=== PATIENT | male | born 1965 | race Hispanic/Latino ===

== ENCOUNTER 2018-08-21 11:41 | Inpatient (IN) | payer MEDICARE, MEDICAID ==
[~2018-08-21] VITALS: Ht 160 cm; Wt 37.5 kg
[2018-08-21] MEDS: D5NS 1,000 ML IV SCH ×2 (12:46→18:06)
[2018-08-21 13:09] LABS: HEMOGLOBIN 14.8 G/DL (14.2-18.0); MEAN CORPUSCULAR VOLUME 89 FL (80-99); PLATELET COUNT 399 K/UL (150-450); RED BLOOD COUNT 4.62 M/UL (4.70-6.10); RED CELL DISTRIBUTION WIDTH 11.7 % (11.6-14.8)
[2018-08-21 13:10] LABS: WHITE BLOOD COUNT 22.6 K/UL (4.8-10.8)
[2018-08-21 13:25] LABS: ANION GAP 6 mmol/L (5-15); BLOOD UREA NITROGEN 18 mg/dL (7-18); CALCIUM 9.7 MG/DL (8.5-10.1); CARBON DIOXIDE 31 MMOL/L (21-32); CHLORIDE 99 MMOL/L (98-107); CREATININE 0.4 MG/DL (0.55-1.30); POTASSIUM 3.3 MMOL/L (3.5-5.1); SODIUM 136 MMOL/L (136-145)
[2018-08-21 13:29] LABS: ALANINE AMINOTRANSFERASE 29 U/L (12-78); ALBUMIN 3.8 G/DL (3.4-5.0); ALBUMIN/GLOBULIN RATIO 0.8 (1.0-2.7); ALKALINE PHOSPHATASE 101 U/L (46-116); ASPARTATE AMINO TRANSFERASE 32 U/L (15-37); BILIRUBIN,TOTAL 0.3 MG/DL (0.2-1.0)
[2018-08-21 13:30] LABS: APPEARANCE,URINE CLEAR; BILIRUBIN, URINE NEGATIVE (NEGATIVE); COLOR,URINE PALE YELLOW; GLUCOSE, URINE (UA) 4+ (NEGATIVE); KETONES,URINE NEGATIVE (NEGATIVE); LEUKOCYTE ESTERASE ,URINE NEGATIVE (NEGATIVE); NITRITE,URINE NEGATIVE (NEGATIVE); PH,URINE 7 (4.5-8.0); PROTEIN,URINE 3+ (NEGATIVE); UROBILINOGEN,URINE NORMAL MG/DL (0.0-1.0)
[2018-08-21 13:47] VITALS: BP 107/66
[2018-08-21] MEDS ORDERED: cefTRIAXone 1 GM in NS 55 ML IVPB ONE (14:00)
--- NOTE | 2018-08-21 14:19 | Emergency Room Report ---
History of Present Illness General Chief Complaint: Abnormal Labs Source: Patient, EMS Present Illness HPI 52-year-old male presents ED for evaluation. Brought in by EMS from home. Accu -Chek was low in the field. In the 20s. Given glucagon. Upon arrival patient more awake alert. Patient states he feels weak and cold. Son at bedside states that patient has history of diabetes. Does not know what medications he takes. Per EMS patient covered in bugs, appears dirty. Son states that the uncle takes care of the patient. Denies chest pain or shortness of breath. Denies fevers or chills. No other aggravating relieving factors. Denies any other associated symptoms Allergies: Coded Allergies: No Known Allergies (Verified , 01/17/08) Patient History Past Medical History: none, DM Past Surgical History: none Pertinent Family History: none Social History: Denies: smoking, alcohol use, drug use Immunizations: UTD Reviewed Nursing Documentation: PMH: Agreed; PSxH: Agreed Nursing Documentation-PMH Past Medical History: No History, Except For Hx Diabetes: Yes Review of Systems All Other Systems: negative except mentioned in HPI Physical Exam Vital Signs Date Time Temp Pulse Resp B/P (MAP) Pulse Ox O2 Delivery O2 Flow Rate FiO2 08/21/18 11:36 97.9 66 18 173/84 98 Room Air 97.9 Sp02 EP Interpretation: reviewed, normal General Appearance: no apparent distress, alert, GCS 15, non-toxic, cachetic Head: normocephalic, atraumatic Eyes: bilateral eye normal inspection, bilateral eye PERRL ENT: hearing grossly normal, normal pharynx, no angioedema, normal voice Neck: full range of motion, supple/symm/no masses Respiratory: chest non-tender, lungs clear, normal breath sounds, speaking full sentences Cardiovascular #1: regular rate, rhythm, no edema Cardiovascular #2: 2+ carotid (R), 2+ carotid (L), 2+ radial (R), 2+ radial (L) , 2+ dorsalis pedis (R), 2+ dorsalis pedis (L) Gastrointestinal: normal bowel sounds, non tender, soft, non-distended, no guarding, no rebound Rectal: deferred Genitourinary: normal inspection, no CVA tenderness Musculoskeletal: back normal, gait/station normal, normal range of motion, non- tender Neurologic: alert, oriented x3, responsive, motor strength/tone normal, sensory intact, speech normal Psychiatric: judgement/insight normal, memory normal, mood/affect normal, no suicidal/homicidal ideation Reflexes: 3+ bicep (R), 3+ bicep (L), 3+ tricep (R), 3+ tricep (L), 3+ knee (R) , 3+ knee (L) Skin: normal color, no rash, warm/dry, well hydrated Lymphatic: no adenopathy Medical Decision Making Diagnostic Impression: Primary Impression: Hypoglycemia Additional Impressions: Sepsis Qualified Codes: A41.9 - Sepsis, unspecified organism Failure to thrive Qualified Codes: R62.7 - Adult failure to thrive ER Course Hospital Course 52-year-old male presenting to ED with generalized weakness, low FS in field Differential diagnoses include: Pneumonia, UTI, sepsis, dehydration Clinical course Patient placed on stretcher. On teletypesetter monitor with stable vitals are ED course. After initial history and physical, I ordered labs, IV fluids, EKG, chest x-ray, blood cultures, UA. Labs - glucose 65, no leukocytosis, troponins negative, UA + bacteria, lactate 2 EKG - NSR, no acute ischemic changes interpreted by me CXR - no acute process Abx given. Given D50, started on D5 fluids. Patient appears to be taken care of poorly and will require social sciences instructor evaluation Case discussed with Dr Padgett and they agreed to admit patient to their service for further care and support I feel this is a highly complex case requiring extensive working including EKG/ Rhythm strip, Xray/CT/US, Blood/urine lab work, repeat exams while in ED, and administration of strong opiates/narcotics for pain control, admission to hospital or close patient follow up. Diagnosis - hypoglycemia, sepsis, FTT Patient admitted to floor in serious condition Labs Test 08/21/18 12:10 08/21/18 12:45 08/21/18 13:30 Urine Color Pale yellow Urine Appearance Clear Urine pH 7 (4.5-8.0) Urine Specific [place] 1.010 (1.005-1.035) Urine Protein 3+ (NEGATIVE) Urine Glucose (UA) 4+ (NEGATIVE) Urine Ketones Negative (NEGATIVE) Urine Blood 2+ (NEGATIVE) Urine Nitrite Negative (NEGATIVE) Urine Bilirubin Negative (NEGATIVE) Urine Urobilinogen Normal MG/DL (0.0-1.0) Urine Leukocyte Esterase Negative (NEGATIVE) Urine RBC 2-4 /HPF (0 - 0) Urine WBC 0-2 /HPF (0 - 0) Urine Squamous Epithelial Cells Occasional /LPF Urine Bacteria Occasional /HPF (NONE) White Blood Count 22.6 K/UL (4.8-10.8) Red Blood Count 4.62 M/UL (4.70-6.10) Hemoglobin 14.8 G/DL (14.2-18.0) Hematocrit 41.0 % (42.0-52.0) Mean Corpuscular Volume 89 FL (80-99) Mean Corpuscular Hemoglobin 32.1 PG (27.0-31.0) Mean Corpuscular Hemoglobin Concent 36.2 G/DL (32.0-36.0) Red Cell Distribution Width 11.7 % (11.6-14.8) Platelet Count 399 K/UL (150-450) Mean Platelet Volume 4.7 FL (6.5-10.1) Neutrophils (%) (Auto) % (45.0-75.0) Lymphocytes (%) (Auto) % (20.0-45.0) Monocytes (%) (Auto) % (1.0-10.0) Eosinophils (%) (Auto) % (0.0-3.0) Basophils (%) (Auto) % (0.0-2.0) Differential Total Cells Counted 100 Neutrophils % (Manual) 77 % (45-75) Lymphocytes % (Manual) 10 % (20-45) Monocytes % (Manual) 4 % (1-10) Eosinophils % (Manual) 0 % (0-3) Basophils % (Manual) 0 % (0-2) Band Neutrophils 9 % (0-8) Platelet Estimate Adequate Platelet Morphology Normal Red Blood Cell Morphology Normal Sodium Level 136 MMOL/L (136-145) Potassium Level 3.3 MMOL/L (3.5-5.1) Chloride Level 99 MMOL/L (98-107) Carbon Dioxide Level 31 MMOL/L (21-32) Anion Gap 6 mmol/L (5-15) Blood Urea Nitrogen 18 mg/dL (7-18) Creatinine 0.4 MG/DL (0.55-1.30) Estimat Glomerular Filtration Rate > 60 mL/min (>60) Glucose Level 65 MG/DL (74-106) Calcium Level 9.7 MG/DL (8.5-10.1) Total Bilirubin 0.3 MG/DL (0.2-1.0) Aspartate Amino Transf (AST/SGOT) 32 U/L (15-37) Alanine Aminotransferase (ALT/SGPT) 29 U/L (12-78) Alkaline Phosphatase 101 U/L (46-116) Total Protein 8.3 G/DL (6.4-8.2) Albumin 3.8 G/DL (3.4-5.0) Globulin 4.5 g/dL Albumin/Globulin Ratio 0.8 (1.0-2.7) Lipase 69 U/L (73-393) Lactic Acid Level 2.00 mmol/L (0.4-2.0) EKG Diagnostic Results Rate: normal Rhythm: NSR ST Segments: no acute changes ASA given to the pt in ED: No Rhythm Strip Diag. Results EP Interpretation: yes Rhythm: NSR, no PVC's, no ectopy Chest X-Ray Diagnostic Results Chest X-Ray Diagnostic Results : Chest X-Ray Ordered: Yes # of Views/Limited/Complete: 1 View Indication: Chest Pain EP Interpretation: Yes Interpretation: no consolidation, no effusion, no pneumothorax, no acute cardiopulmonary disease Impression: No acute disease Electronically Signed by: Electronically signed by Milo Snow MD Last Vital Signs Date Time Temp Pulse Resp B/P (MAP) Pulse Ox O2 Delivery O2 Flow Rate FiO2 08/21/18 13:47 90.5 74 12 107/66 100 Room Air 90.5 Status: improved Disposition: ADMITTED INPATIENT Condition: Serious Scripts Unable to Obtain Active Prescriptions or Reported Meds Referrals: NON PHYSICIAN (PCP) Milo Snow MD Aug 21, 2018 14:19
--- NOTE | 2018-08-21 15:37 | Diagnostic Imaging Report ---
Indication: Dyspnea Comparison: None A single view chest radiograph was obtained. Findings: Cardiomediastinal appearance is within normal limits for age. The lungs are clear. Pulmonary vascularity is appropriate. The diaphragmatic contour is smooth and costophrenic angles are sharp. No pleural effusions are identified. The bones are unremarkable. Degenerative osteophytes noted in the thoracic spine. Impression: No acute findings
[2018-08-21] MEDS ORDERED: Morphine Sulfate 2mg/ml Inj IVP PRN (15:45)
[2018-08-21] MEDS ORDERED: Miralax 17gm pkt ORAL PRN (15:45)
[2018-08-21] MEDS ORDERED: Mylanta II UD 30ml ORAL PRN (15:45)
[2018-08-21] MEDS ORDERED: LORazepam Inj 2mg/ml 1ml IV PRN (15:45)
[2018-08-21] MEDS ORDERED: Zolpidem 5mg tab ORAL PRN (15:45)
[2018-08-21 20:00] VITALS: BP 130/63
[2018-08-21] MEDS: NovoLOG Insulin Flexpen SUBQ SCH (21:00)
[2018-08-22] VITALS (10 sets, daily range): BP systolic 100–158; BP diastolic 57–80
[2018-08-22] MEDS: D5NS 1,000 ML IV SCH (04:43)
[2018-08-22] MEDS ORDERED: Dextrose 10% 1,000 ML IV SCH ×3 (06:00→13:13)
[2018-08-22] MEDS: NovoLOG Insulin Flexpen SUBQ SCH ×3 (06:30→21:00)
[2018-08-22 06:38] LABS: HEMATOCRIT 37.5 % (42.0-52.0); HEMOGLOBIN 13.6 G/DL (14.2-18.0); MEAN CORPUSCULAR VOLUME 88 FL (80-99); PLATELET COUNT 381 K/UL (150-450); RED BLOOD COUNT 4.26 M/UL (4.70-6.10); RED CELL DISTRIBUTION WIDTH 11.8 % (11.6-14.8)
[2018-08-22 06:55] LABS: WHITE BLOOD COUNT 24.9 K/UL (4.8-10.8)
[2018-08-22 07:09] LABS: ALANINE AMINOTRANSFERASE 30 U/L (12-78); ALBUMIN 3.6 G/DL (3.4-5.0); ALBUMIN/GLOBULIN RATIO 0.9 (1.0-2.7); ALKALINE PHOSPHATASE 91 U/L (46-116); ANION GAP 11 mmol/L (5-15); ASPARTATE AMINO TRANSFERASE 41 U/L (15-37); BILIRUBIN,TOTAL 0.4 MG/DL (0.2-1.0); BLOOD UREA NITROGEN 17 mg/dL (7-18); CALCIUM 9.1 MG/DL (8.5-10.1); CARBON DIOXIDE 27 MMOL/L (21-32); CHLORIDE 101 MMOL/L (98-107); CHOLESTEROL 253 MG/DL (< 200); CREATININE 0.4 MG/DL (0.55-1.30); HDL CHOLESTEROL 109 MG/DL (40-60); POTASSIUM 3.1 MMOL/L (3.5-5.1); SODIUM 139 MMOL/L (136-145); TRIGLYCERIDES 15 MG/DL (30-150)
--- NOTE | 2018-08-22 11:44 | Consultation ---
History of Present Illness General Date patient seen: Aug 22, 2018 Chief Complaint: Abnormal Labs Present Illness HPI 52-year-old male with history of diabetes, who presents with chief complaint of altered mental status. the pt pw waxing and waning of consciousness. the pt has memory impairment and has been deteriorating over the past several months the pt has been disheveled and malodorous Allergies: Coded Allergies: No Known Allergies (Verified , 01/17/08) Medication History Unable to Obtain Active Prescriptions or Reported Meds Patient History Limited by: medical condition History Provided By: Patient, Medical Record Healthcare decision maker Resuscitation status Advanced Directive on File Past Medical/Surgical History Past Medical/Surgical History: (1) Failure to thrive (2) Diabetes mellitus (3) Chronic back pain (4) Acute encephalopathy (5) Hypokalemia (6) Bacteremia (7) Hypoglycemia (8) Sepsis Review of Systems Psychiatric: Reports: prior hx, anxiety, depressed feelings, emotional problems Physical Exam General Appearance: no apparent distress, alert, confused Last 24 Hour Vital Signs Date Time Temp Pulse Resp B/P (MAP) Pulse Ox O2 Delivery O2 Flow Rate FiO2 08/22/18 09:00 Room Air 08/22/18 08:00 98.6 77 16 123/64 (83) 99 98.6 08/22/18 04:00 98.3 86 19 141/77 (98) 97 98.3 08/22/18 00:00 98.0 78 18 144/79 (100) 98 98.0 08/21/18 21:00 Room Air 08/21/18 20:00 97.8 73 18 130/63 (85) 100 97.8 08/21/18 18:36 Room Air 08/21/18 16:56 96.6 85 16 119/68 100 Room Air 08/21/18 13:47 90.5 74 12 107/66 100 Room Air 90.5 Intake and Output 08/21/18 08/22/18 19:00 07:00 Intake Total 50 ml Output Total 30 ml Balance -30 ml 50 ml Intake IV Total 50 ml Output Urine Total 30 ml # Voids 6 # Bowel Movements 6 Laboratory Tests Test 08/21/18 12:10 08/21/18 12:45 08/21/18 13:30 08/21/18 16:15 Urine Color Pale yellow Urine Appearance Clear Urine pH 7 (4.5-8.0) Urine Specific [place] 1.010 (1.005-1.035) Urine Protein 3+ (NEGATIVE) H Urine Glucose (UA) 4+ (NEGATIVE) H Urine Ketones Negative (NEGATIVE) Urine Blood 2+ (NEGATIVE) H Urine Nitrite Negative (NEGATIVE) Urine Bilirubin Negative (NEGATIVE) Urine Urobilinogen Normal MG/DL (0.0-1.0) Urine Leukocyte Esterase Negative (NEGATIVE) Urine RBC 2-4 /HPF (0 - 0) H Urine WBC 0-2 /HPF (0 - 0) Urine Squamous Epithelial Cells Occasional /LPF Urine Bacteria Occasional /HPF (NONE) White Blood Count 22.6 K/UL (4.8-10.8) *H Red Blood Count 4.62 M/UL (4.70-6.10) L Hemoglobin 14.8 G/DL (14.2-18.0) Hematocrit 41.0 % (42.0-52.0) L Mean Corpuscular Volume 89 FL (80-99) Mean Corpuscular Hemoglobin 32.1 PG (27.0-31.0) H Mean Corpuscular Hemoglobin Concent 36.2 G/DL (32.0-36.0) H Red Cell Distribution Width 11.7 % (11.6-14.8) Platelet Count 399 K/UL (150-450) Mean Platelet Volume 4.7 FL (6.5-10.1) L Neutrophils (%) (Auto) % (45.0-75.0) Lymphocytes (%) (Auto) % (20.0-45.0) Monocytes (%) (Auto) % (1.0-10.0) Eosinophils (%) (Auto) % (0.0-3.0) Basophils (%) (Auto) % (0.0-2.0) Differential Total Cells Counted 100 Neutrophils % (Manual) 77 % (45-75) H Lymphocytes % (Manual) 10 % (20-45) L Monocytes % (Manual) 4 % (1-10) Eosinophils % (Manual) 0 % (0-3) Basophils % (Manual) 0 % (0-2) Band Neutrophils 9 % (0-8) H Platelet Estimate Adequate Platelet Morphology Normal Red Blood Cell Morphology Normal Sodium Level 136 MMOL/L (136-145) Potassium Level 3.3 MMOL/L (3.5-5.1) L Chloride Level 99 MMOL/L (98-107) Carbon Dioxide Level 31 MMOL/L (21-32) Anion Gap 6 mmol/L (5-15) Blood Urea Nitrogen 18 mg/dL (7-18) Creatinine 0.4 MG/DL (0.55-1.30) L Estimat Glomerular Filtration Rate > 60 mL/min (>60) Glucose Level 65 MG/DL (74-106) L Calcium Level 9.7 MG/DL (8.5-10.1) Total Bilirubin 0.3 MG/DL (0.2-1.0) Aspartate Amino Transf (AST/SGOT) 32 U/L (15-37) Alanine Aminotransferase (ALT/SGPT) 29 U/L (12-78) Alkaline Phosphatase 101 U/L (46-116) Total Protein 8.3 G/DL (6.4-8.2) H Albumin 3.8 G/DL (3.4-5.0) Globulin 4.5 g/dL Albumin/Globulin Ratio 0.8 (1.0-2.7) L Lipase 69 U/L (73-393) L Lactic Acid Level 2.00 mmol/L (0.4-2.0) 1.40 mmol/L (0.66-2.22) Test 08/22/18 05:10 White Blood Count 24.9 K/UL (4.8-10.8) *H Red Blood Count 4.26 M/UL (4.70-6.10) L Hemoglobin 13.6 G/DL (14.2-18.0) L Hematocrit 37.5 % (42.0-52.0) L Mean Corpuscular Volume 88 FL (80-99) Mean Corpuscular Hemoglobin 31.8 PG (27.0-31.0) H Mean Corpuscular Hemoglobin Concent 36.1 G/DL (32.0-36.0) H Red Cell Distribution Width 11.8 % (11.6-14.8) Platelet Count 381 K/UL (150-450) Mean Platelet Volume 4.7 FL (6.5-10.1) L Neutrophils (%) (Auto) % (45.0-75.0) Lymphocytes (%) (Auto) % (20.0-45.0) Monocytes (%) (Auto) % (1.0-10.0) Eosinophils (%) (Auto) % (0.0-3.0) Basophils (%) (Auto) % (0.0-2.0) Differential Total Cells Counted 100 Neutrophils % (Manual) 95 % (45-75) H Lymphocytes % (Manual) 4 % (20-45) L Monocytes % (Manual) 1 % (1-10) Eosinophils % (Manual) 0 % (0-3) Basophils % (Manual) 0 % (0-2) Band Neutrophils 0 % (0-8) Platelet Estimate Adequate Platelet Morphology Normal Sodium Level 139 MMOL/L (136-145) Potassium Level 3.1 MMOL/L (3.5-5.1) L Chloride Level 101 MMOL/L (98-107) Carbon Dioxide Level 27 MMOL/L (21-32) Anion Gap 11 mmol/L (5-15) Blood Urea Nitrogen 17 mg/dL (7-18) Creatinine 0.4 MG/DL (0.55-1.30) L Estimat Glomerular Filtration Rate > 60 mL/min (>60) Glucose Level 45 MG/DL (74-106) L Calcium Level 9.1 MG/DL (8.5-10.1) Total Bilirubin 0.4 MG/DL (0.2-1.0) Aspartate Amino Transf (AST/SGOT) 41 U/L (15-37) H Alanine Aminotransferase (ALT/SGPT) 30 U/L (12-78) Alkaline Phosphatase 91 U/L (46-116) Total Protein 7.8 G/DL (6.4-8.2) Albumin 3.6 G/DL (3.4-5.0) Globulin 4.2 g/dL Albumin/Globulin Ratio 0.9 (1.0-2.7) L Triglycerides Level 15 MG/DL (30-150) L Cholesterol Level 253 MG/DL (< 200) H LDL Cholesterol 130 mg/dL (<100) H HDL Cholesterol 109 MG/DL (40-60) H Cholesterol/HDL Ratio 2.3 (3.3-4.4) L Thyroid Stimulating Hormone (TSH) 1.274 uiU/mL (0.358-3.740) Height (Feet): 5 Height (Inches): 3.00 Weight (Pounds): 82 Medications Current Medications Medications (Trade) Dose Ordered Sig/Horace Route PRN Reason Start Time Stop Time Status Last Admin Dose Admin Acetaminophen (Tylenol) 650 mg Q4H PRN ORAL fever 08/21/18 15:45 09/20/18 15:44 Al Hydroxide/Mg Hydroxide (Mylanta II) 30 ml Q6H PRN ORAL dyspepsia 08/21/18 15:45 09/20/18 15:44 Ceftriaxone Sodium 1 gm/ Dextrose 55 ml @ 110 mls/hr DAILY IVPB 08/22/18 12:00 08/29/18 11:59 Dextrose 1,000 ml @ 100 mls/hr Q10H IV 08/22/18 11:00 09/21/18 10:59 08/22/18 11:04 Dextrose (Dextrose 50%) 25 ml Q30M PRN IV Hypoglycemia 08/21/18 18:45 09/20/18 18:44 Dextrose (Dextrose 50%) 50 ml Q30M PRN IV Hypoglycemia 08/21/18 18:45 09/20/18 18:44 08/22/18 11:33 Insulin Aspart (NovoLOG) BEFORE MEALS AND HS SUBQ 08/21/18 21:00 09/20/18 20:59 Lorazepam (Ativan 2mg/ml 1ml) 0.5 mg Q4H PRN IV For Anxiety 08/21/18 15:45 08/28/18 15:44 Morphine Sulfate (Morphine Sulfate) 1 mg Q4H PRN IVP For Pain 08/21/18 15:45 08/28/18 15:44 Ondansetron HCl (Zofran) 4 mg Q6H PRN IVP Nausea & Vomiting 08/21/18 15:45 09/20/18 15:44 Polyethylene Glycol (Miralax) 17 gm HSPRN PRN ORAL Constipation 08/21/18 15:45 09/20/18 15:44 Zolpidem Tartrate (Ambien) 5 mg HSPRN PRN ORAL Insomnia 08/21/18 15:45 08/28/18 15:44 Assessment/Plan Problem List: (1) Failure to thrive Qualifiers: Qualified Codes: R62.7 - Adult failure to thrive (2) Diabetes mellitus ICD Codes: E11.9 - Type 2 diabetes mellitus without complications SNOMED: 17903562 (3) Acute encephalopathy ICD Codes: G93.40 - Encephalopathy, unspecified SNOMED: 13064642, [id number] Status: unchanged Assessment/Plan seroquel prn provided ro Aric Peck MD Aug 22, 2018 11:44
--- NOTE | 2018-08-22 11:51 | Consultation ---
Kellie Welch M.D. 08/22/18 1150: History of Present Illness General Date patient seen: Aug 22, 2018 Chief Complaint: Abnormal Labs Present Illness HPI 52 y/o M with hx of DM2 brought to ED by EMS with severe hypoglycemia, BG 20s in the field. Per EMS, patient was covered in buts, appears dirty. Denied CP, SOB, f/c. Allergies: Coded Allergies: No Known Allergies (Verified , 01/17/08) Medication History Unable to Obtain Active Prescriptions or Reported Meds Patient History Healthcare decision maker Resuscitation status Advanced Directive on File Patient History Narrative Pmhx: as above Shx: smoking, alcohol use, drug use Fhx: non contributory Review of Systems All Other Systems: negative except mentioned in HPI Physical Exam Physical Exam Narrative General Appearance: no apparent distress, alert, non-toxic, cachetic HEENT: normocephalic, atraumatic, bilateral eye PERRL, normal pharynx Neck: full range of motion, supple/symm/no masses Respiratory: chest non-tender, lungs clear, normal breath sounds, speaking full sentences Cardiovascular: regular rate, rhythm, no edema Gastrointestinal: normal bowel sounds, non tender, soft, non-distended, no guarding, no rebound Rectal: deferred Genitourinary: normal inspection, no CVA tenderness Musculoskeletal: back normal, gait/station normal, normal range of motion, non- tender Skin: normal color, no rash, warm/dry, well hydrated Lymphatic: no adenopathy Last 24 Hour Vital Signs Date Time Temp Pulse Resp B/P (MAP) Pulse Ox O2 Delivery O2 Flow Rate FiO2 08/22/18 09:00 Room Air 08/22/18 08:00 98.6 77 16 123/64 (83) 99 98.6 08/22/18 04:00 98.3 86 19 141/77 (98) 97 98.3 08/22/18 00:00 98.0 78 18 144/79 (100) 98 98.0 08/21/18 21:00 Room Air 08/21/18 20:00 97.8 73 18 130/63 (85) 100 97.8 08/21/18 18:36 Room Air 08/21/18 16:56 96.6 85 16 119/68 100 Room Air 08/21/18 13:47 90.5 74 12 107/66 100 Room Air 90.5 Intake and Output 08/21/18 08/22/18 19:00 07:00 Intake Total 50 ml Output Total 30 ml Balance -30 ml 50 ml Intake IV Total 50 ml Output Urine Total 30 ml # Voids 6 # Bowel Movements 6 Laboratory Tests Test 08/21/18 12:10 08/21/18 12:45 08/21/18 13:30 08/21/18 16:15 Urine Color Pale yellow Urine Appearance Clear Urine pH 7 (4.5-8.0) Urine Specific [place] 1.010 (1.005-1.035) Urine Protein 3+ (NEGATIVE) H Urine Glucose (UA) 4+ (NEGATIVE) H Urine Ketones Negative (NEGATIVE) Urine Blood 2+ (NEGATIVE) H Urine Nitrite Negative (NEGATIVE) Urine Bilirubin Negative (NEGATIVE) Urine Urobilinogen Normal MG/DL (0.0-1.0) Urine Leukocyte Esterase Negative (NEGATIVE) Urine RBC 2-4 /HPF (0 - 0) H Urine WBC 0-2 /HPF (0 - 0) Urine Squamous Epithelial Cells Occasional /LPF Urine Bacteria Occasional /HPF (NONE) White Blood Count 22.6 K/UL (4.8-10.8) *H Red Blood Count 4.62 M/UL (4.70-6.10) L Hemoglobin 14.8 G/DL (14.2-18.0) Hematocrit 41.0 % (42.0-52.0) L Mean Corpuscular Volume 89 FL (80-99) Mean Corpuscular Hemoglobin 32.1 PG (27.0-31.0) H Mean Corpuscular Hemoglobin Concent 36.2 G/DL (32.0-36.0) H Red Cell Distribution Width 11.7 % (11.6-14.8) Platelet Count 399 K/UL (150-450) Mean Platelet Volume 4.7 FL (6.5-10.1) L Neutrophils (%) (Auto) % (45.0-75.0) Lymphocytes (%) (Auto) % (20.0-45.0) Monocytes (%) (Auto) % (1.0-10.0) Eosinophils (%) (Auto) % (0.0-3.0) Basophils (%) (Auto) % (0.0-2.0) Differential Total Cells Counted 100 Neutrophils % (Manual) 77 % (45-75) H Lymphocytes % (Manual) 10 % (20-45) L Monocytes % (Manual) 4 % (1-10) Eosinophils % (Manual) 0 % (0-3) Basophils % (Manual) 0 % (0-2) Band Neutrophils 9 % (0-8) H Platelet Estimate Adequate Platelet Morphology Normal Red Blood Cell Morphology Normal Sodium Level 136 MMOL/L (136-145) Potassium Level 3.3 MMOL/L (3.5-5.1) L Chloride Level 99 MMOL/L (98-107) Carbon Dioxide Level 31 MMOL/L (21-32) Anion Gap 6 mmol/L (5-15) Blood Urea Nitrogen 18 mg/dL (7-18) Creatinine 0.4 MG/DL (0.55-1.30) L Estimat Glomerular Filtration Rate > 60 mL/min (>60) Glucose Level 65 MG/DL (74-106) L Calcium Level 9.7 MG/DL (8.5-10.1) Total Bilirubin 0.3 MG/DL (0.2-1.0) Aspartate Amino Transf (AST/SGOT) 32 U/L (15-37) Alanine Aminotransferase (ALT/SGPT) 29 U/L (12-78) Alkaline Phosphatase 101 U/L (46-116) Total Protein 8.3 G/DL (6.4-8.2) H Albumin 3.8 G/DL (3.4-5.0) Globulin 4.5 g/dL Albumin/Globulin Ratio 0.8 (1.0-2.7) L Lipase 69 U/L (73-393) L Lactic Acid Level 2.00 mmol/L (0.4-2.0) 1.40 mmol/L (0.66-2.22) Test 08/22/18 05:10 White Blood Count 24.9 K/UL (4.8-10.8) *H Red Blood Count 4.26 M/UL (4.70-6.10) L Hemoglobin 13.6 G/DL (14.2-18.0) L Hematocrit 37.5 % (42.0-52.0) L Mean Corpuscular Volume 88 FL (80-99) Mean Corpuscular Hemoglobin 31.8 PG (27.0-31.0) H Mean Corpuscular Hemoglobin Concent 36.1 G/DL (32.0-36.0) H Red Cell Distribution Width 11.8 % (11.6-14.8) Platelet Count 381 K/UL (150-450) Mean Platelet Volume 4.7 FL (6.5-10.1) L Neutrophils (%) (Auto) % (45.0-75.0) Lymphocytes (%) (Auto) % (20.0-45.0) Monocytes (%) (Auto) % (1.0-10.0) Eosinophils (%) (Auto) % (0.0-3.0) Basophils (%) (Auto) % (0.0-2.0) Differential Total Cells Counted 100 Neutrophils % (Manual) 95 % (45-75) H Lymphocytes % (Manual) 4 % (20-45) L Monocytes % (Manual) 1 % (1-10) Eosinophils % (Manual) 0 % (0-3) Basophils % (Manual) 0 % (0-2) Band Neutrophils 0 % (0-8) Platelet Estimate Adequate Platelet Morphology Normal Sodium Level 139 MMOL/L (136-145) Potassium Level 3.1 MMOL/L (3.5-5.1) L Chloride Level 101 MMOL/L (98-107) Carbon Dioxide Level 27 MMOL/L (21-32) Anion Gap 11 mmol/L (5-15) Blood Urea Nitrogen 17 mg/dL (7-18) Creatinine 0.4 MG/DL (0.55-1.30) L Estimat Glomerular Filtration Rate > 60 mL/min (>60) Glucose Level 45 MG/DL (74-106) L Calcium Level 9.1 MG/DL (8.5-10.1) Total Bilirubin 0.4 MG/DL (0.2-1.0) Aspartate Amino Transf (AST/SGOT) 41 U/L (15-37) H Alanine Aminotransferase (ALT/SGPT) 30 U/L (12-78) Alkaline Phosphatase 91 U/L (46-116) Total Protein 7.8 G/DL (6.4-8.2) Albumin 3.6 G/DL (3.4-5.0) Globulin 4.2 g/dL Albumin/Globulin Ratio 0.9 (1.0-2.7) L Triglycerides Level 15 MG/DL (30-150) L Cholesterol Level 253 MG/DL (< 200) H LDL Cholesterol 130 mg/dL (<100) H HDL Cholesterol 109 MG/DL (40-60) H Cholesterol/HDL Ratio 2.3 (3.3-4.4) L Thyroid Stimulating Hormone (TSH) 1.274 uiU/mL (0.358-3.740) Height (Feet): 5 Height (Inches): 3.00 Weight (Pounds): 82 Medications Current Medications Medications (Trade) Dose Ordered Sig/Horace Route PRN Reason Start Time Stop Time Status Last Admin Dose Admin Acetaminophen (Tylenol) 650 mg Q4H PRN ORAL fever 08/21/18 15:45 09/20/18 15:44 Al Hydroxide/Mg Hydroxide (Mylanta II) 30 ml Q6H PRN ORAL dyspepsia 08/21/18 15:45 09/20/18 15:44 Ceftriaxone Sodium 1 gm/ Dextrose 55 ml @ 110 mls/hr DAILY IVPB 08/22/18 12:00 08/29/18 11:59 Dextrose 1,000 ml @ 100 mls/hr Q10H IV 08/22/18 11:00 09/21/18 10:59 08/22/18 11:04 Dextrose (Dextrose 50%) 25 ml Q30M PRN IV Hypoglycemia 08/21/18 18:45 09/20/18 18:44 Dextrose (Dextrose 50%) 50 ml Q30M PRN IV Hypoglycemia 08/21/18 18:45 09/20/18 18:44 08/22/18 11:33 Insulin Aspart (NovoLOG) BEFORE MEALS AND HS SUBQ 08/21/18 21:00 09/20/18 20:59 Lorazepam (Ativan 2mg/ml 1ml) 0.5 mg Q4H PRN IV For Anxiety 08/21/18 15:45 08/28/18 15:44 Morphine Sulfate (Morphine Sulfate) 1 mg Q4H PRN IVP For Pain 08/21/18 15:45 08/28/18 15:44 Ondansetron HCl (Zofran) 4 mg Q6H PRN IVP Nausea & Vomiting 08/21/18 15:45 09/20/18 15:44 Polyethylene Glycol (Miralax) 17 gm HSPRN PRN ORAL Constipation 08/21/18 15:45 09/20/18 15:44 Zolpidem Tartrate (Ambien) 5 mg HSPRN PRN ORAL Insomnia 08/21/18 15:45 08/28/18 15:44 Assessment/Plan Assessment/Plan Abx: Ceftriaxone 08/21- Assessment: R/o probable sepsis Hypothermia, SP Leukocytosis- ?reactive- r/o infectious process -u/a neg -CXR: n o acute disease -Bcx p SEvere hypoglycemia- ?extra insulin administration vs r/o insulinoma DM Plan: -Continue empiric Ceftriaxone #2 for now pending cultures -f/u cx -Monitor CBC/CMP, temperatures -CBC, CMP am -stool cx, Cdiff -Endocrine eval Thank you for this consultation. Will continue to follow along with you. Discussed with RN. Aric Peck MD 08/22/18 1253: History of Present Illness General Chief Complaint: Abnormal Labs Present Illness HPI 52-year-old male presents ED for evaluation bib EMS from home. the pt is confused and has waxing and waning of consciousness. cognitive impairment and not able to provide hx. the pt is disheveled and malodorous. the pt used to be independent/ Allergies: Coded Allergies: No Known Allergies (Verified , 01/17/08) Medication History Unable to Obtain Active Prescriptions or Reported Meds Patient History Limited by: medical condition History Provided By: Medical Record, PMD Past Medical/Surgical History Past Medical/Surgical History: (1) Hypoglycemia (2) Sepsis (3) Failure to thrive Review of Systems Psychiatric: Reports: prior hx, anxiety, depressed feelings, emotional problems Physical Exam General Appearance: no apparent distress, confused Assessment/Plan Status: unchanged Assessment/Plan encephalopathy due to metabolic d/o and toxin agitation Risperdal .5q6hr prn d.w son provided carlos/Kellie Gr M.D. Aug 22, 2018 11:50 Aric Peck MD Aug 22, 2018 12:53
[2018-08-22] MEDS ORDERED: cefTRIAXone 1 GM in D5W 55 ML IVPB SCH ×2 (12:00→13:15)
[2018-08-22] MEDS ORDERED: Morphine Sulfate 2mg/ml Inj IVP PRN (13:14)
[2018-08-22] MEDS ORDERED: Mylanta II UD 30ml ORAL PRN ×2 (13:14→18:53)
[2018-08-22] MEDS ORDERED: LORazepam Inj 2mg/ml 1ml IV PRN (13:14)
[2018-08-22] MEDS ORDERED: Vancomycin 750mg/NS 250ml IVPB SCH (15:00)
--- NOTE | 2018-08-22 15:11 | Consultation ---
History of Present Illness General Date patient seen: Aug 22, 2018 Chief Complaint: Abnormal Labs Present Illness HPI 52-year-old male with hx of DM, oral diabetic meds presented to ED for evaluation of ALOC. His accu-Chek was low in the field, in the 20s. He received glucagon and became more awake alert. Patient states he feels weak and cold. Per EMS patient was covered in bugs, appears dirty. Son states that the uncle takes care of the patient. Denies chest pain or shortness of breath. Denies fevers or chills. Pt is admitted for further management. Allergies: Coded Allergies: No Known Allergies (Verified , 01/17/08) Medication History Unable to Obtain Active Prescriptions or Reported Meds Patient History Healthcare decision maker Resuscitation status Advanced Directive on File Past Medical/Surgical History Past Medical/Surgical History: (1) Diabetes mellitus (2) Chronic back pain Review of Systems All Other Systems: negative except mentioned in HPI Physical Exam General Appearance: cachetic Lines, tubes and drains: peripheral HEENT: normocephalic, atraumatic Neck: non-tender, normal alignment Respiratory/Chest: chest wall non-tender, lungs clear Cardiovascular/Chest: normal peripheral pulses, normal rate Abdomen: normal bowel sounds Genitourinary/Rectal: normal genital exam, normal rectal exam Extremities: normal range of motion Skin Exam: normal pigmentation Neurologic: data analysis assistant II-XII grossly normal Last 24 Hour Vital Signs Date Time Temp Pulse Resp B/P (MAP) Pulse Ox O2 Delivery O2 Flow Rate FiO2 08/22/18 12:40 89 08/22/18 12:00 98.4 89 20 118/67 (84) 95 98.4 08/22/18 09:00 Room Air 08/22/18 08:00 98.6 77 16 123/64 (83) 99 98.6 08/22/18 04:00 98.3 86 19 141/77 (98) 97 98.3 08/22/18 00:00 98.0 78 18 144/79 (100) 98 98.0 08/21/18 21:00 Room Air 08/21/18 20:00 97.8 73 18 130/63 (85) 100 97.8 08/21/18 18:36 Room Air 08/21/18 16:56 96.6 85 16 119/68 100 Room Air Intake and Output 08/21/18 08/22/18 19:00 07:00 Intake Total 50 ml Output Total 30 ml Balance -30 ml 50 ml Intake IV Total 50 ml Output Urine Total 30 ml # Voids 6 # Bowel Movements 6 Laboratory Tests Test 08/21/18 16:15 08/22/18 05:10 Lactic Acid Level 1.40 mmol/L (0.66-2.22) White Blood Count 24.9 K/UL (4.8-10.8) *H Red Blood Count 4.26 M/UL (4.70-6.10) L Hemoglobin 13.6 G/DL (14.2-18.0) L Hematocrit 37.5 % (42.0-52.0) L Mean Corpuscular Volume 88 FL (80-99) Mean Corpuscular Hemoglobin 31.8 PG (27.0-31.0) H Mean Corpuscular Hemoglobin Concent 36.1 G/DL (32.0-36.0) H Red Cell Distribution Width 11.8 % (11.6-14.8) Platelet Count 381 K/UL (150-450) Mean Platelet Volume 4.7 FL (6.5-10.1) L Neutrophils (%) (Auto) % (45.0-75.0) Lymphocytes (%) (Auto) % (20.0-45.0) Monocytes (%) (Auto) % (1.0-10.0) Eosinophils (%) (Auto) % (0.0-3.0) Basophils (%) (Auto) % (0.0-2.0) Differential Total Cells Counted 100 Neutrophils % (Manual) 95 % (45-75) H Lymphocytes % (Manual) 4 % (20-45) L Monocytes % (Manual) 1 % (1-10) Eosinophils % (Manual) 0 % (0-3) Basophils % (Manual) 0 % (0-2) Band Neutrophils 0 % (0-8) Platelet Estimate Adequate Platelet Morphology Normal Sodium Level 139 MMOL/L (136-145) Potassium Level 3.1 MMOL/L (3.5-5.1) L Chloride Level 101 MMOL/L (98-107) Carbon Dioxide Level 27 MMOL/L (21-32) Anion Gap 11 mmol/L (5-15) Blood Urea Nitrogen 17 mg/dL (7-18) Creatinine 0.4 MG/DL (0.55-1.30) L Estimat Glomerular Filtration Rate > 60 mL/min (>60) Glucose Level 45 MG/DL (74-106) L Calcium Level 9.1 MG/DL (8.5-10.1) Total Bilirubin 0.4 MG/DL (0.2-1.0) Aspartate Amino Transf (AST/SGOT) 41 U/L (15-37) H Alanine Aminotransferase (ALT/SGPT) 30 U/L (12-78) Alkaline Phosphatase 91 U/L (46-116) Total Protein 7.8 G/DL (6.4-8.2) Albumin 3.6 G/DL (3.4-5.0) Globulin 4.2 g/dL Albumin/Globulin Ratio 0.9 (1.0-2.7) L Triglycerides Level 15 MG/DL (30-150) L Cholesterol Level 253 MG/DL (< 200) H LDL Cholesterol 130 mg/dL (<100) H HDL Cholesterol 109 MG/DL (40-60) H Cholesterol/HDL Ratio 2.3 (3.3-4.4) L Thyroid Stimulating Hormone (TSH) 1.274 uiU/mL (0.358-3.740) Microbiology Date/Time Source Procedure Growth Status 08/22/18 00:00 Stool Ordered Height (Feet): 5 Height (Inches): 3.00 Weight (Pounds): 82 Medications Current Medications Medications (Trade) Dose Ordered Sig/Horace Route PRN Reason Start Time Stop Time Status Last Admin Dose Admin Acetaminophen (Tylenol) 650 mg Q4H PRN ORAL fever 08/22/18 13:13 09/20/18 13:12 Al Hydroxide/Mg Hydroxide (Mylanta II) 30 ml Q6H PRN ORAL dyspepsia 08/22/18 13:14 09/20/18 13:13 Ceftriaxone Sodium 1 gm/ Dextrose 55 ml @ 110 mls/hr DAILY IVPB 08/22/18 13:15 08/29/18 13:14 08/22/18 14:12 Dextrose 1,000 ml @ 100 mls/hr Q10H IV 08/22/18 13:13 09/21/18 13:12 08/22/18 14:12 Dextrose (Dextrose 50%) 25 ml Q30M PRN IV Hypoglycemia 08/22/18 13:15 09/20/18 18:44 Dextrose (Dextrose 50%) 50 ml Q30M PRN IV Hypoglycemia 08/22/18 13:14 09/20/18 13:13 08/22/18 14:35 Insulin Aspart (NovoLOG) BEFORE MEALS AND HS SUBQ 08/22/18 16:30 09/20/18 20:59 Lorazepam (Ativan 2mg/ml 1ml) 0.5 mg Q4H PRN IV For Anxiety 08/22/18 13:14 08/28/18 13:13 Morphine Sulfate (Morphine Sulfate) 1 mg Q4H PRN IVP For Pain 08/22/18 13:14 08/28/18 13:13 Ondansetron HCl (Zofran) 4 mg Q6H PRN IVP Nausea & Vomiting 08/22/18 13:14 09/20/18 13:13 Polyethylene Glycol (Miralax) 17 gm HSPRN PRN ORAL Constipation 08/22/18 15:45 09/20/18 15:44 Risperidone (RisperDAL) 0.5 mg Q6H PRN ORAL agitation 08/22/18 13:14 09/21/18 13:13 Vancomycin HCl (Vanco rx to dose) 1 ea DAILY PRN MISC Per rx protocol 08/22/18 14:30 09/21/18 14:29 Vancomycin/Sodium Chloride 250 ml @ 166.667 mls/hr Q24H IVPB 08/22/18 15:00 08/27/18 14:59 Zolpidem Tartrate (Ambien) 5 mg HSPRN PRN ORAL Insomnia 08/22/18 15:45 08/28/18 15:44 Assessment/Plan Problem List: (1) Acute encephalopathy ICD Codes: G93.40 - Encephalopathy, unspecified SNOMED: 92652358, 905951974 (2) Hypoglycemia ICD Codes: E16.2 - Hypoglycemia, unspecified SNOMED: 278380522 (3) Sepsis ICD Codes: A41.9 - Sepsis, unspecified organism SNOMED: 93515135 Qualifiers: Qualified Codes: A41.9 - Sepsis, unspecified organism (4) Failure to thrive Qualifiers: Qualified Codes: R62.7 - Adult failure to thrive (5) Diabetes mellitus ICD Codes: E11.9 - Type 2 diabetes mellitus without complications SNOMED: 72775855 (6) Chronic back pain ICD Codes: M54.9 - Dorsalgia, unspecified; G89.29 - Other chronic pain SNOMED: 753288588 Assessment/Plan iv fluids medeiros cultures iv abx check electrolytes ID evaluation f/u wbc frequent accuchecks Vic Kaminski MD Aug 22, 2018 15:10
[2018-08-22] MEDS ORDERED: Miralax 17gm pkt ORAL PRN ×2 (15:45→18:54)
[2018-08-22] MEDS ORDERED: Zolpidem 5mg tab ORAL PRN (15:45)
[2018-08-22] MEDS ORDERED: NovoLOG Insulin Flexpen SUBQ SCH (16:30)
--- NOTE | 2018-08-22 17:05 | History & Physical ---
History and Physical History & Physicial Dictated for Int Med-Dr Padgett no. [id number]. Andrew Maravilla MD Aug 22, 2018 17:05
[2018-08-22] MEDS ORDERED: Isovue-370 150ml vial INJ PRN (17:11)
--- NOTE | 2018-08-22 17:16 | Cardiac Electrophysiology PN ---
Subjective Subjective [id number] Objective Last 24 Hour Vital Signs Date Time Temp Pulse Resp B/P (MAP) Pulse Ox O2 Delivery O2 Flow Rate FiO2 08/22/18 12:40 89 08/22/18 12:00 98.4 89 20 118/67 (84) 95 98.4 08/22/18 09:00 Room Air 08/22/18 08:00 98.6 77 16 123/64 (83) 99 98.6 08/22/18 04:00 98.3 86 19 141/77 (98) 97 98.3 08/22/18 00:00 98.0 78 18 144/79 (100) 98 98.0 08/21/18 21:00 Room Air 08/21/18 20:00 97.8 73 18 130/63 (85) 100 97.8 08/21/18 18:36 Room Air Intake and Output 08/21/18 08/22/18 19:00 07:00 Intake Total 50 ml Output Total 30 ml Balance -30 ml 50 ml Intake IV Total 50 ml Output Urine Total 30 ml # Voids 6 # Bowel Movements 6 Laboratory Tests Test 08/22/18 05:10 08/22/18 16:45 White Blood Count 24.9 K/UL (4.8-10.8) *H Red Blood Count 4.26 M/UL (4.70-6.10) L Hemoglobin 13.6 G/DL (14.2-18.0) L Hematocrit 37.5 % (42.0-52.0) L Mean Corpuscular Volume 88 FL (80-99) Mean Corpuscular Hemoglobin 31.8 PG (27.0-31.0) H Mean Corpuscular Hemoglobin Concent 36.1 G/DL (32.0-36.0) H Red Cell Distribution Width 11.8 % (11.6-14.8) Platelet Count 381 K/UL (150-450) Mean Platelet Volume 4.7 FL (6.5-10.1) L Neutrophils (%) (Auto) % (45.0-75.0) Lymphocytes (%) (Auto) % (20.0-45.0) Monocytes (%) (Auto) % (1.0-10.0) Eosinophils (%) (Auto) % (0.0-3.0) Basophils (%) (Auto) % (0.0-2.0) Differential Total Cells Counted 100 Neutrophils % (Manual) 95 % (45-75) H Lymphocytes % (Manual) 4 % (20-45) L Monocytes % (Manual) 1 % (1-10) Eosinophils % (Manual) 0 % (0-3) Basophils % (Manual) 0 % (0-2) Band Neutrophils 0 % (0-8) Platelet Estimate Adequate Platelet Morphology Normal Sodium Level 139 MMOL/L (136-145) Potassium Level 3.1 MMOL/L (3.5-5.1) L Chloride Level 101 MMOL/L (98-107) Carbon Dioxide Level 27 MMOL/L (21-32) Anion Gap 11 mmol/L (5-15) Blood Urea Nitrogen 17 mg/dL (7-18) Creatinine 0.4 MG/DL (0.55-1.30) L Estimat Glomerular Filtration Rate > 60 mL/min (>60) Glucose Level 45 MG/DL (74-106) L 96 MG/DL (74-106) Calcium Level 9.1 MG/DL (8.5-10.1) Total Bilirubin 0.4 MG/DL (0.2-1.0) Aspartate Amino Transf (AST/SGOT) 41 U/L (15-37) H Alanine Aminotransferase (ALT/SGPT) 30 U/L (12-78) Alkaline Phosphatase 91 U/L (46-116) Total Protein 7.8 G/DL (6.4-8.2) Albumin 3.6 G/DL (3.4-5.0) Globulin 4.2 g/dL Albumin/Globulin Ratio 0.9 (1.0-2.7) L Triglycerides Level 15 MG/DL (30-150) L Cholesterol Level 253 MG/DL (< 200) H LDL Cholesterol 130 mg/dL (<100) H HDL Cholesterol 109 MG/DL (40-60) H Cholesterol/HDL Ratio 2.3 (3.3-4.4) L Thyroid Stimulating Hormone (TSH) 1.274 uiU/mL (0.358-3.740) Microbiology Date/Time Source Procedure Growth Status 08/21/18 13:30 Blood Blood Culture - Preliminary Resulted 08/22/18 00:00 Stool Ordered Mert Liz MD Aug 22, 2018 17:16
[2018-08-22] MEDS: Dextrose 10% 1,000 ML IV SCH (19:00)
[2018-08-22] MEDS: LORazepam Inj 2mg/ml 1ml IV PRN (19:30)
[2018-08-22] MEDS: Morphine Sulfate 2mg/ml Inj IVP PRN (20:20)
[2018-08-22] MEDS: Zolpidem 5mg tab ORAL PRN (20:21)
--- NOTE | 2018-08-22 22:30 | History and Physical Report ---
DATE OF ADMISSION: 08/21/2018 CHIEF COMPLAINT: This is a 52-year-old male with history of diabetes, who presents with chief complaint of altered mental status. HISTORY OF PRESENT ILLNESS: The patient has history of diabetes. The patient lives with his brother. According to the brother, the patient was extremely agitated. The patient was punching at the reynoso. The patient was unable to speak. The patient's brother called EMS. The patient was found to have fingerstick glucose of "low." The patient was transferred to [facility]. The patient is admitted with altered mental status and hypoglycemia. Much of the history and physical is taken from the patient's brother, Carlos, his brother who is present at the bedside. REVIEW OF SYSTEMS: Unable to assess secondary to the patient's mental status. PAST MEDICAL HISTORY: Significant for type 2 diabetes. PAST SURGICAL HISTORY: Denies. CURRENT MEDICATIONS: 1. Insulin of an unknown dose. 2. Metformin of unknown dose. ALLERGIES: No known drug allergies. SOCIAL HISTORY: The patient is and lives with his brother. The patient denies tobacco use. The patient admits to previous alcohol use, however, quit 4 years previously. The patient's brother states the patient smokes marijuana daily. PHYSICAL EXAMINATION: VITAL SIGNS: Temperature 97.9, respirations 18, pulse 66, blood pressure 173/84. GENERAL: The patient is thin-appearing male, who is quite agitated. HEENT: Eyes, pupils equal and responsive to light and accommodation. Extraocular movements are intact. NECK: Supple without lymphadenopathy. CHEST: Lungs are clear to auscultation bilaterally without wheezes or rales. CARDIOVASCULAR: Regular rhythm and rate. S1, S2 are normal without murmurs, rubs, or gallops. ABDOMEN: Soft, nontender, and nondistended. Positive bowel sounds. No evidence of hepatosplenomegaly. Currently, no rebound or guarding noted. EXTREMITIES: Negative for clubbing, cyanosis, or edema. RECTAL: Refused. GENITAL: Refused. NEUROLOGIC: The patient is quite agitated. Cranial nerves II through XII are grossly intact without focal deficits. Motor strength is 5/5 bilaterally intact. Deep tendon reflexes are 2+, plantar. LABORATORY STUDIES: WBC elevated at 22.6, hemoglobin 14.8, hematocrit 41.0, platelets 399,000. Sodium 136, potassium 3.3, chloride 99, CO2 31, BUN 18, creatinine 0.4, glucose 65. Urinalysis showed 3+ protein, 4+ glucose, 2+ blood with 2-4 rbc's. ASSESSMENT: This is a 52-year-old male with: 1. Altered mental status. 2. Hypoglycemia. 3. Leukocytosis. 4. Diabetes type 2. 5. Hypertension. TREATMENT: 1. Altered mental status. This may be secondary to hypoglycemia. A CT scan of the brain is pending. 2. Leukocytosis. This may be secondary to sepsis. An Infectious Disease consultation has been obtained with Dr. Calhoun. The patient has been started empirically on intravenous vancomycin and ceftriaxone. We will follow recommendations of Infectious Disease. Blood cultures are pending. 3. Diabetes type 2. The patient is currently hypoglycemic. The patient is currently receiving D10 intravenously. An Endocrinology consultation has been obtained with Dr. Yap. 4. Hypertension. The patient is currently n.p.o. Andrew Maravilla M.D. DR: Jet JOB#: [id number] CC:
--- NOTE | 2018-08-22 23:00 | Consultation ---
DATE OF CONSULTATION: 08/22/2018 CARDIOLOGY CONSULTATION CONSULTING PHYSICIAN: Mert Liz M.D. REFERRING PHYSICIAN: Jared Padgett M.D. REASON FOR CONSULTATION: 1. Altered mental status. 2. . HISTORY OF PRESENT ILLNESS: The patient is a 52-year-old gentleman who was brought from home with altered mental status. Accu-Chek by paramedics showed the glucose of only 20. The patient received glucagon and became more awake and alert. The patient however again had altered mental status and the blood glucose will get in the mid 20s. Per paramedics, the patient was covered in bugs and was apparently dirty. The patient was then transferred to intensive care unit for close monitoring. At the time of my evaluation, the patient is still confused, but is alert. REVIEW OF SYSTEMS: Cannot be obtained. PAST MEDICAL HISTORY: Diabetes. FAMILY HISTORY: Noncontributory. SOCIAL HISTORY: He lives at home. There is no other history that can be obtainable. PHYSICAL EXAMINATION: VITAL SIGNS: Show blood pressure of 118/67, pulse is 89, respirations 20. HEAD AND NECK: Shows no JVD. LUNGS: Clear. CARDIOVASCULAR: Regular S1 and S2 with no gallop or murmur. ABDOMEN: Soft. EXTREMITIES: No pitting edema. LABORATORY AND DIAGNOSTIC DATA: His EKG showed normal sinus rhythm with early repolarization, otherwise normal electrocardiogram. His labs white count of 24.9, hemoglobin 13.7, hematocrit 37.5, and platelet count 381. Sodium 139, potassium 3.1, BUN of 17, creatinine 0.4. ASSESSMENT AND PLAN: 1. Altered mental status likely due to recurrent hypoglycemia. The patient could be also septic in view of white count of 25,000. The patient is on vancomycin and ceftriaxone. We will get an echocardiogram for further evaluation and management. 2. Recurrent hypoglycemia. Further evaluation by Endocrinology is pending. Thank you very much, Dr. Padgett for allowing me to participate in the care of this patient. Please do not hesitate to contact me for any questions regarding my evaluation. Sincerely, Mert Liz M.D. DR: Huan JOB#: [id number] CC:
[2018-08-23] VITALS (24 sets, daily range): BP systolic 93–157; BP diastolic 52–99
[2018-08-23] MEDS: Morphine Sulfate 2mg/ml Inj IVP PRN (00:57)
[2018-08-23] MEDS: LORazepam Inj 2mg/ml 1ml IV PRN (05:17)
[2018-08-23] MEDS: Dextrose 10% 1,000 ML IV SCH ×2 (06:00→15:16)
[2018-08-23] MEDS: NovoLOG Insulin Flexpen SUBQ SCH ×4 (06:08→21:02)
[2018-08-23 07:16] LABS: ALANINE AMINOTRANSFERASE 24 U/L (12-78); ALBUMIN 2.9 G/DL (3.4-5.0); ALBUMIN/GLOBULIN RATIO 0.7 (1.0-2.7); ALKALINE PHOSPHATASE 83 U/L (46-116); ANION GAP 10 mmol/L (5-15); ASPARTATE AMINO TRANSFERASE 54 U/L (15-37); BILIRUBIN,TOTAL 0.4 MG/DL (0.2-1.0); BLOOD UREA NITROGEN 6 mg/dL (7-18); CALCIUM 8.5 MG/DL (8.5-10.1); CARBON DIOXIDE 26 MMOL/L (21-32); CHLORIDE 96 MMOL/L (98-107); CREATININE 0.5 MG/DL (0.55-1.30); SODIUM 132 MMOL/L (136-145)
[2018-08-23 07:27] LABS: HEMATOCRIT 35.9 % (42.0-52.0); HEMOGLOBIN 12.7 G/DL (14.2-18.0); MEAN CORPUSCULAR VOLUME 89 FL (80-99); PLATELET COUNT 314 K/UL (150-450); RED BLOOD COUNT 4.06 M/UL (4.70-6.10); WHITE BLOOD COUNT 14.8 K/UL (4.8-10.8)
--- NOTE | 2018-08-23 10:08 | Pulmonolgy Critical Care Note ---
Critical Care - Asmt/Plan Problems: (1) Acute encephalopathy (2) Sepsis (3) Hypoglycemia (4) Hypokalemia (5) Bacteremia (6) Diabetes mellitus Respiratory: monitor respiratory rate, adjust FIO2 Cardiac: continue to monitor HR/BP Renal: F/U I&O, keep IV fluid, other - kcl supplement Infectious Disease: check cultures Gastrointestinal: continue feedings/current rate, other - add reglan for increased residuals Endocrine: monitor blood sugar, continue sliding scale insulin Hematologic: monitor H/H Neurologic: PRN Morphine Affect: PRN ativan Prophylaxis: Heparin Disposition: keep in ICU Time Spent (Minutes): 40 Notes Reviewed: cardio, renal Discussed with: nurses, consultants, 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 - Objective Last 24 Hour Vital Signs Date Time Temp Pulse Resp B/P (MAP) Pulse Ox O2 Delivery O2 Flow Rate FiO2 08/23/18 07:00 95 12 109/64 (79) 100 08/23/18 06:00 111 12 136/84 (101) 100 08/23/18 05:00 104 14 130/76 (94) 100 08/23/18 04:00 Room Air 08/23/18 04:00 98.5 113 18 100/86 (91) 100 98.5 08/23/18 03:00 101 12 119/68 (85) 100 08/23/18 02:00 100 12 104/59 (74) 100 08/23/18 01:00 97 14 100/52 (68) 100 08/23/18 00:00 99.0 95 14 127/57 (80) 100 99.0 08/23/18 00:00 Room Air 08/22/18 23:00 91 15 107/59 (75) 100 08/22/18 22:00 103 14 120/65 (83) 100 08/22/18 21:00 114 19 158/80 (106) 100 08/22/18 20:00 98.3 80 18 145/75 (98) 100 98.3 08/22/18 20:00 Room Air 08/22/18 19:00 87 17 137/80 (99) 100 08/22/18 16:00 93 08/22/18 16:00 97.9 89 18 100/57 (71) 100 97.9 08/22/18 12:40 89 08/22/18 12:00 Room Air 08/22/18 12:00 98.4 89 20 118/67 (84 95 98.4 Status: sedated Condition: critical HEENT: atraumatic Lungs: clear Heart: HR/BP stable Abdomen: soft, active bowel sounds Extremities: no C/C/E Decubiti: location Micro: Microbiology Date/Time Source Procedure Growth Status 08/21/18 13:45 Blood Blood Culture - Preliminary NO GROWTH AFTER 24 HOURS Resulted 08/21/18 13:30 Blood Blood Culture - Preliminary Streptococcus Species Resulted 08/22/18 00:00 Stool Ordered Accucheck: 197 Critical Care - Subjective ROS Limited/Unobtainable: Yes ICU Day: 2 Interval Events: still very lethargic Condition: critical EKG Rhythm: Sinus Rhythm Fluids: d10 at 100 cc/hour Tube Feeding Amount: 0 I&O: Intake and Output 08/22/18 08/23/18 19:00 07:00 Intake Total 55 ml 1140 ml Output Total 0 ml 1400 ml Balance 55 ml -260 ml Intake IV Total 55 ml 1100 ml Tube Feeding 40 ml Output Urine Total 1400 ml Stool Total 0 ml # Bowel Movements 2 Labs: Laboratory Tests Test 08/22/18 16:45 08/23/18 04:00 Glucose Level 96 MG/DL (74-106) 125 MG/DL (74-106) H Troponin I 0.014 ng/mL (0.000-0.056) 0.000 ng/mL (0.000-0.056) Pro-B-Type Natriuretic Peptide 757 pg/mL (0-125) H 843 pg/mL (0-125) H White Blood Count 14.8 K/UL (4.8-10.8) H Red Blood Count 4.06 M/UL (4.70-6.10) L Hemoglobin 12.7 G/DL (14.2-18.0) L Hematocrit 35.9 % (42.0-52.0) L Mean Corpuscular Volume 89 FL (80-99) Mean Corpuscular Hemoglobin 31.2 PG (27.0-31.0) H Mean Corpuscular Hemoglobin Concent 35.2 G/DL (32.0-36.0) Red Cell Distribution Width 12.0 % (11.6-14.8) Platelet Count 314 K/UL (150-450) Mean Platelet Volume 4.3 FL (6.5-10.1) L Neutrophils (%) (Auto) % (45.0-75.0) Lymphocytes (%) (Auto) % (20.0-45.0) Monocytes (%) (Auto) % (1.0-10.0) Eosinophils (%) (Auto) % (0.0-3.0) Basophils (%) (Auto) % (0.0-2.0) Neutrophils % (Manual) Pending Lymphocytes % (Manual) Pending Platelet Estimate Pending Platelet Morphology Pending Sodium Level 132 MMOL/L (136-145) L Potassium Level 3.0 MMOL/L (3.5-5.1) L Chloride Level 96 MMOL/L (98-107) L Carbon Dioxide Level 26 MMOL/L (21-32) Anion Gap 10 mmol/L (5-15) Blood Urea Nitrogen 6 mg/dL (7-18) L Creatinine 0.5 MG/DL (0.55-1.30) L Estimat Glomerular Filtration Rate > 60 mL/min (>60) Calcium Level 8.5 MG/DL (8.5-10.1) Total Bilirubin 0.4 MG/DL (0.2-1.0) Aspartate Amino Transf (AST/SGOT) 54 U/L (15-37) H Alanine Aminotransferase (ALT/SGPT) 24 U/L (12-78) Alkaline Phosphatase 83 U/L (46-116) Total Protein 6.8 G/DL (6.4-8.2) Albumin 2.9 G/DL (3.4-5.0) L Globulin 3.9 g/dL Albumin/Globulin Ratio 0.7 (1.0-2.7) L Vic Kaminski MD Aug 23, 2018 10:08
[2018-08-23] MEDS ORDERED: Metoclopramide 10mg/2ml Inj IVP PRN (10:15)
[2018-08-23] MEDS: cefTRIAXone 1 GM in D5W 55 ML IVPB SCH (10:21)
--- NOTE | 2018-08-23 10:22 | Diagnostic Imaging Report ---
Indication: NG tube placement Comparison: None Single view of the abdomen obtained Findings: The NG tube is noted and projected over the stomach. The tip is in the stomach lumen. The proximal port is at the EG junction and the tube should be advanced further. Bowel gas pattern is nonspecific. Bones are osteopenic. IMPRESSION: Nasogastric tube as described above. Suggest advancement. [facility] has communicated the preliminary results to the ICU. Their findings are largely concordant with this report.
--- NOTE | 2018-08-23 10:34 | Infectious Diseases Prog Note ---
Assessment/Plan Assessment/Plan Assessment: Sepsis Hypothermia, SP Leukocytosis- improving -u/a neg -CXR: n o acute disease Gram positive bacteremia- real vs contaminant -Bcx 1/4 GPC chains SEvere hypoglycemia- ?extra insulin administration vs r/o insulinoma DM Plan: -Continue empiric Ceftriaxone #3 and IV Vancomycin #2 for now pending cultures -f/u cx -Monitor CBC/CMP, temperatures -Bcx x2 -2d Echo -Endocrine eval Thank you for this consultation. Will continue to follow along with you. Discussed with RN. Subjective Allergies: Coded Allergies: No Known Allergies (Verified , 01/17/08) Subjective hypothermia resolved leukocytosis improving bacteremic tranferred to ICU due to ongoing severe hypoglycemia witnessed seizure episode by RN CT head ordered. Objective Vital Signs Last 24 Hour Vital Signs Date Time Temp Pulse Resp B/P (MAP) Pulse Ox O2 Delivery O2 Flow Rate FiO2 08/23/18 07:00 95 12 109/64 (79) 100 08/23/18 06:00 111 12 136/84 (101) 100 08/23/18 05:00 104 14 130/76 (94) 100 08/23/18 04:00 Room Air 08/23/18 04:00 98.5 113 18 100/86 (91) 100 98.5 08/23/18 03:00 101 12 119/68 (85) 100 08/23/18 02:00 100 12 104/59 (74) 100 08/23/18 01:00 97 14 100/52 (68) 100 08/23/18 00:00 99.0 95 14 127/57 (80) 100 99.0 08/23/18 00:00 Room Air 08/22/18 23:00 91 15 107/59 (75) 100 08/22/18 22:00 103 14 120/65 (83) 100 08/22/18 21:00 114 19 158/80 (106) 100 08/22/18 20:00 98.3 80 18 145/75 (98) 100 98.3 08/22/18 20:00 Room Air 08/22/18 19:00 87 17 137/80 (99) 100 08/22/18 16:00 93 08/22/18 16:00 97.9 89 18 100/57 (71) 100 97.9 08/22/18 12:40 89 08/22/18 12:00 Room Air 08/22/18 12:00 98.4 89 20 118/67 (84) 95 98.4 Height (Feet): 5 Height (Inches): 3.00 Weight (Pounds): 88 Objective General Appearance: no apparent distress, alert, non-toxic, cachetic HEENT: normocephalic, atraumatic, bilateral eye PERRL, normal pharynx Neck: full range of motion, supple/symm/no masses Respiratory: chest non-tender, lungs clear, normal breath sounds, speaking full sentences Cardiovascular: regular rate, rhythm, no edema Gastrointestinal: normal bowel sounds, non tender, soft, non-distended, no guarding, no rebound Rectal: deferred Genitourinary: normal inspection, no CVA tenderness Musculoskeletal: back normal, gait/station normal, normal range of motion, non- tender Skin: normal color, no rash, warm/dry, well hydrated Lymphatic: no adenopathy Microbiology Date/Time Source Procedure Growth Status 08/21/18 13:45 Blood Blood Culture - Preliminary NO GROWTH AFTER 24 HOURS Resulted 08/21/18 13:30 Blood Blood Culture - Preliminary Streptococcus Species Resulted 08/22/18 00:00 Stool Ordered Laboratory Tests Test 08/22/18 16:45 08/23/18 04:00 Glucose Level 96 MG/DL (74-106) 125 MG/DL (74-106) H Troponin I 0.014 ng/mL (0.000-0.056) 0.000 ng/mL (0.000-0.056) Pro-B-Type Natriuretic Peptide 757 pg/mL (0-125) H 843 pg/mL (0-125) H White Blood Count 14.8 K/UL (4.8-10.8) H Red Blood Count 4.06 M/UL (4.70-6.10) L Hemoglobin 12.7 G/DL (14.2-18.0) L Hematocrit 35.9 % (42.0-52.0) L Mean Corpuscular Volume 89 FL (80-99) Mean Corpuscular Hemoglobin 31.2 PG (27.0-31.0) H Mean Corpuscular Hemoglobin Concent 35.2 G/DL (32.0-36.0) Red Cell Distribution Width 12.0 % (11.6-14.8) Platelet Count 314 K/UL (150-450) Mean Platelet Volume 4.3 FL (6.5-10.1) L Neutrophils (%) (Auto) % (45.0-75.0) Lymphocytes (%) (Auto) % (20.0-45.0) Monocytes (%) (Auto) % (1.0-10.0) Eosinophils (%) (Auto) % (0.0-3.0) Basophils (%) (Auto) % (0.0-2.0) Neutrophils % (Manual) Pending Lymphocytes % (Manual) Pending Platelet Estimate Pending Platelet Morphology Pending Sodium Level 132 MMOL/L (136-145) L Potassium Level 3.0 MMOL/L (3.5-5.1) L Chloride Level 96 MMOL/L (98-107) L Carbon Dioxide Level 26 MMOL/L (21-32) Anion Gap 10 mmol/L (5-15) Blood Urea Nitrogen 6 mg/dL (7-18) L Creatinine 0.5 MG/DL (0.55-1.30) L Estimat Glomerular Filtration Rate > 60 mL/min (>60) Calcium Level 8.5 MG/DL (8.5-10.1) Total Bilirubin 0.4 MG/DL (0.2-1.0) Aspartate Amino Transf (AST/SGOT) 54 U/L (15-37) H Alanine Aminotransferase (ALT/SGPT) 24 U/L (12-78) Alkaline Phosphatase 83 U/L (46-116) Total Protein 6.8 G/DL (6.4-8.2) Albumin 2.9 G/DL (3.4-5.0) L Globulin 3.9 g/dL Albumin/Globulin Ratio 0.7 (1.0-2.7) L Current Medications Medications (Trade) Dose Ordered Sig/Horace Route PRN Reason Start Time Stop Time Status Last Admin Dose Admin Acetaminophen (Tylenol) 650 mg Q4H PRN ORAL fever 08/22/18 18:53 09/20/18 18:52 Al Hydroxide/Mg Hydroxide (Mylanta II) 30 ml Q6H PRN ORAL dyspepsia 08/22/18 18:53 09/20/18 18:52 Ceftriaxone Sodium 1 gm/ Dextrose 55 ml @ 110 mls/hr DAILY IVPB 08/23/18 09:00 08/29/18 13:14 Dextrose 1,000 ml @ 100 mls/hr Q10H IV 08/22/18 19:00 09/21/18 13:12 08/23/18 06:00 Dextrose (Dextrose 50%) 25 ml Q30M PRN IV Hypoglycemia 08/22/18 18:53 09/20/18 18:52 Dextrose (Dextrose 50%) 50 ml Q30M PRN IV Hypoglycemia 08/22/18 19:15 09/20/18 13:13 08/23/18 05:17 Heparin Sodium (Porcine) (Heparin 5000 units/ml) 5,000 units EVERY 12 HOURS SUBQ 08/23/18 21:00 09/22/18 20:59 UNV Insulin Aspart (NovoLOG) BEFORE MEALS AND HS SUBQ 08/22/18 21:00 09/20/18 20:59 Iopamidol (Isovue-370 150ml) 150 ml NOW PRN INJ Radiology Procedure 08/23/18 17:15 08/23/18 23:59 Lorazepam (Ativan 2mg/ml 1ml) 0.5 mg Q4H PRN IV For Anxiety 08/22/18 18:54 08/28/18 18:53 08/23/18 05:17 Metoclopramide HCl (Reglan) 10 mg Q6H PRN IVP Nausea & Vomiting 08/23/18 10:15 09/22/18 10:14 Morphine Sulfate (Morphine Sulfate) 1 mg Q4H PRN IVP For Pain 08/22/18 18:54 08/28/18 18:53 08/23/18 00:57 Ondansetron HCl (Zofran) 4 mg Q6H PRN IVP Nausea & Vomiting 08/22/18 18:54 09/20/18 18:53 Polyethylene Glycol (Miralax) 17 gm HSPRN PRN ORAL Constipation 08/22/18 18:54 09/21/18 18:53 Potassium Chloride 40 meq/ Sodium Chloride 570 ml @ 142.5 mls/ hr ONCE IVPB 08/23/18 11:00 08/23/18 15:00 Risperidone (RisperDAL) 0.5 mg Q6H PRN ORAL agitation 08/22/18 19:15 09/21/18 13:13 Vancomycin HCl (Vanco rx to dose) 1 ea DAILY PRN MISC Per rx protocol 08/23/18 09:00 09/21/18 14:29 Vancomycin/Sodium Chloride 250 ml @ 166.667 mls/hr Q24H IVPB 08/23/18 15:00 08/27/18 14:59 Zolpidem Tartrate (Ambien) 5 mg HSPRN PRN ORAL Insomnia 08/22/18 18:55 08/29/18 18:54 08/22/18 20:21 Kellie Welch M.D. Aug 23, 2018 10:34
[2018-08-23] MEDS ORDERED: Potassium Chloride 40 MEQ in Sodium Chloride 500ML 550 ML IVPB SCH (11:00)
--- NOTE | 2018-08-23 14:52 | Cardiac Electrophysiology PN ---
Assessment/Plan Assessment/Plan 1. Altered mental status likely due to recurrent hypoglycemia. The patient could be also septic in view of white count of 25,000. The patient is on vancomycin and ceftriaxone. Echocardiogram showed Nl EF 55% 2. Recurrent hypoglycemia. Further evaluation by Endocrinology Subjective Subjective Alert in NAD.Confused. RN readjusting NG at bedside. No CP or SOB. Objective Last 24 Hour Vital Signs Date Time Temp Pulse Resp B/P (MAP) Pulse Ox O2 Delivery O2 Flow Rate FiO2 08/23/18 13:00 106 17 130/68 (88) 100 08/23/18 12:00 102 08/23/18 12:00 Room Air 08/23/18 12:00 98.1 102 17 121/74 (90) 100 98.1 08/23/18 11:00 92 13 129/71 (90) 100 08/23/18 10:00 98 14 146/76 (99) 100 08/23/18 09:00 93 15 93/64 (74) 100 08/23/18 08:00 Room Air 08/23/18 08:00 98.3 96 13 111/66 (81) 100 98.3 08/23/18 08:00 96 08/23/18 07:00 95 12 109/64 (79) 100 08/23/18 06:00 111 12 136/84 (101) 100 08/23/18 05:00 104 14 130/76 (94) 100 08/23/18 04:00 Room Air 08/23/18 04:00 98.5 113 18 100/86 (91) 100 98.5 08/23/18 03:00 101 12 119/68 (85) 100 08/23/18 02:00 100 12 104/59 (74) 100 08/23/18 01:00 97 14 100/52 (68) 100 08/23/18 00:00 99.0 95 14 127/57 (80) 100 99.0 08/23/18 00:00 Room Air 08/22/18 23:00 91 15 107/59 (75) 100 08/22/18 22:00 103 14 120/65 (83) 100 08/22/18 21:00 114 19 158/80 (106) 100 08/22/18 20:00 98.3 80 18 145/75 (98) 100 98.3 08/22/18 20:00 Room Air 08/22/18 19:00 87 17 137/80 (99) 100 08/22/18 16:00 93 08/22/18 16:00 97.9 89 18 100/57 (71) 100 97.9 Intake and Output 08/22/18 08/23/18 19:00 07:00 Intake Total 55 ml 1140 ml Output Total 0 ml 1400 ml Balance 55 ml -260 ml Intake IV Total 55 ml 1100 ml Tube Feeding 40 ml Output Urine Total 1400 ml Stool Total 0 ml # Bowel Movements 2 Laboratory Tests Test 08/22/18 16:45 08/23/18 04:00 Glucose Level 96 MG/DL (74-106) 125 MG/DL (74-106) H Troponin I 0.014 ng/mL (0.000-0.056) 0.000 ng/mL (0.000-0.056) Pro-B-Type Natriuretic Peptide 757 pg/mL (0-125) H 843 pg/mL (0-125) H White Blood Count 14.8 K/UL (4.8-10.8) H Red Blood Count 4.06 M/UL (4.70-6.10) L Hemoglobin 12.7 G/DL (14.2-18.0) L Hematocrit 35.9 % (42.0-52.0) L Mean Corpuscular Volume 89 FL (80-99) Mean Corpuscular Hemoglobin 31.2 PG (27.0-31.0) H Mean Corpuscular Hemoglobin Concent 35.2 G/DL (32.0-36.0) Red Cell Distribution Width 12.0 % (11.6-14.8) Platelet Count 314 K/UL (150-450) Mean Platelet Volume 4.3 FL (6.5-10.1) L Neutrophils (%) (Auto) % (45.0-75.0) Lymphocytes (%) (Auto) % (20.0-45.0) Monocytes (%) (Auto) % (1.0-10.0) Eosinophils (%) (Auto) % (0.0-3.0) Basophils (%) (Auto) % (0.0-2.0) Differential Total Cells Counted 100 Neutrophils % (Manual) 79 % (45-75) H Lymphocytes % (Manual) 16 % (20-45) L Monocytes % (Manual) 5 % (1-10) Eosinophils % (Manual) 0 % (0-3) Basophils % (Manual) 0 % (0-2) Band Neutrophils 0 % (0-8) Platelet Estimate Adequate Platelet Morphology Normal Red Blood Cell Morphology Normal Sodium Level 132 MMOL/L (136-145) L Potassium Level 3.0 MMOL/L (3.5-5.1) L Chloride Level 96 MMOL/L (98-107) L Carbon Dioxide Level 26 MMOL/L (21-32) Anion Gap 10 mmol/L (5-15) Blood Urea Nitrogen 6 mg/dL (7-18) L Creatinine 0.5 MG/DL (0.55-1.30) L Estimat Glomerular Filtration Rate > 60 mL/min (>60) Calcium Level 8.5 MG/DL (8.5-10.1) Total Bilirubin 0.4 MG/DL (0.2-1.0) Aspartate Amino Transf (AST/SGOT) 54 U/L (15-37) H Alanine Aminotransferase (ALT/SGPT) 24 U/L (12-78) Alkaline Phosphatase 83 U/L (46-116) Total Protein 6.8 G/DL (6.4-8.2) Albumin 2.9 G/DL (3.4-5.0) L Globulin 3.9 g/dL Albumin/Globulin Ratio 0.7 (1.0-2.7) L Microbiology Date/Time Source Procedure Growth Status 08/21/18 13:45 Blood Blood Culture - Preliminary NO GROWTH AFTER 24 HOURS Resulted 08/21/18 13:30 Blood Blood Culture - Preliminary Streptococcus Species Resulted 08/22/18 00:00 Stool Ordered Objective HEAD AND NECK: No JVD.NG tube is in LUNGS: Clear. CARDIOVASCULAR: Regular S1 and S2 with no gallop or murmur. ABDOMEN: Soft. EXTREMITIES: No pitting edema. Mert Liz MD Aug 23, 2018 14:51
--- NOTE | 2018-08-23 14:52 | General Progress Note ---
Assessment/Plan Problem List: (1) Failure to thrive Qualifiers: Qualified Codes: R62.7 - Adult failure to thrive (2) Diabetes mellitus ICD Codes: E11.9 - Type 2 diabetes mellitus without complications SNOMED: 17221959 (3) Acute encephalopathy ICD Codes: G93.40 - Encephalopathy, unspecified SNOMED: 94421733, 250863021 Status: not improved Assessment/Plan seroquel prn provided ro Subjective Date patient seen: Aug 23, 2018 Neurologic/Psychiatric: Reports: anxiety, depressed Allergies: Coded Allergies: No Known Allergies (Verified , 01/17/08) Objective Last 24 Hour Vital Signs Date Time Temp Pulse Resp B/P (MAP) Pulse Ox O2 Delivery O2 Flow Rate FiO2 08/23/18 13:00 106 17 130/68 (88) 100 08/23/18 12:00 102 08/23/18 12:00 Room Air 08/23/18 12:00 98.1 102 17 121/74 (90) 100 98.1 08/23/18 11:00 92 13 129/71 (90) 100 08/23/18 10:00 98 14 146/76 (99) 100 08/23/18 09:00 93 15 93/64 (74) 100 08/23/18 08:00 Room Air 08/23/18 08:00 98.3 96 13 111/66 (81) 100 98.3 08/23/18 08:00 96 08/23/18 07:00 95 12 109/64 (79) 100 08/23/18 06:00 111 12 136/84 (101) 100 08/23/18 05:00 104 14 130/76 (94) 100 08/23/18 04:00 Room Air 08/23/18 04:00 98.5 113 18 100/86 (91) 100 98.5 08/23/18 03:00 101 12 119/68 (85) 100 08/23/18 02:00 100 12 104/59 (74) 100 08/23/18 01:00 97 14 100/52 (68) 100 08/23/18 00:00 99.0 95 14 127/57 (80) 100 99.0 08/23/18 00:00 Room Air 08/22/18 23:00 91 15 107/59 (75) 100 08/22/18 22:00 103 14 120/65 (83) 100 08/22/18 21:00 114 19 158/80 (106) 100 08/22/18 20:00 98.3 80 18 145/75 (98) 100 98.3 08/22/18 20:00 Room Air 08/22/18 19:00 87 17 137/80 (99) 100 08/22/18 16:00 93 08/22/18 16:00 97.9 89 18 100/57 (71) 100 97.9 Intake and Output 08/22/18 08/23/18 19:00 07:00 Intake Total 55 ml 1140 ml Output Total 0 ml 1400 ml Balance 55 ml -260 ml Intake IV Total 55 ml 1100 ml Tube Feeding 40 ml Output Urine Total 1400 ml Stool Total 0 ml # Bowel Movements 2 Laboratory Tests 08/22/18 16:45: Glucose Level 96, Troponin I 0.014, Pro-B-Type Natriuretic Peptide 757H 08/23/18 04:00: Glucose Level 125H, Troponin I 0.000, Pro-B-Type Natriuretic Peptide 843H, White Blood Count 14.8H, Red Blood Count 4.06L, Hemoglobin 12.7L, Hematocrit 35.9L, Mean Corpuscular Volume 89, Mean Corpuscular Hemoglobin 31.2H, Mean Corpuscular Hemoglobin Concent 35.2, Red Cell Distribution Width 12.0, Platelet Count 314, Mean Platelet Volume 4.3L, Neutrophils (%) (Auto) , Lymphocytes (%) ( Auto) , Monocytes (%) (Auto) , Eosinophils (%) (Auto) , Basophils (%) (Auto) , Differential Total Cells Counted 100, Neutrophils % (Manual) 79H, Lymphocytes % (Manual) 16L, Monocytes % (Manual) 5, Eosinophils % (Manual) 0, Basophils % ( Manual) 0, Band Neutrophils 0, Platelet Estimate Adequate, Platelet Morphology Normal, Red Blood Cell Morphology Normal, Sodium Level 132L, Potassium Level 3.0L, Chloride Level 96L, Carbon Dioxide Level 26, Anion Gap 10, Blood Urea Nitrogen 6L, Creatinine 0.5L, Estimat Glomerular Filtration Rate > 60, Calcium Level 8.5, Total Bilirubin 0.4, Aspartate Amino Transf (AST/SGOT) 54H, Alanine Aminotransferase (ALT/SGPT) 24, Alkaline Phosphatase 83, Total Protein 6.8, Albumin 2.9L, Globulin 3.9, Albumin/Globulin Ratio 0.7L Height (Feet): 5 Height (Inches): 3.00 Weight (Pounds): 88 General Appearance: no apparent distress, alert, confused, agitated Aric Peck MD Aug 23, 2018 14:52
[2018-08-23] MEDS ORDERED: Vancomycin 750mg/NS 250ml 250 ML IVPB SCH (15:00)
[2018-08-23] MEDS ORDERED: NS 275ml ONE ×2 (15:29→15:31)
[2018-08-23] MEDS ORDERED: Tubing IV Secondary IV ONE ×2 (15:29→15:31)
--- NOTE | 2018-08-23 15:40 | Diagnostic Imaging Report ---
Indication: Focal weakness. Acute cva Technique: Continuous helical transaxial imaging of the head was obtained during rapid intravenous contrast administration. Arterial phase of enhancement obtained. Coronal 2-D reformats were also obtained and maximum intensity projection images in multiple planes. Study obtained in a Siemens sensation [address] Automatic Exposure Control was utilized. Total Dose length Product (DLP): 5749.[address] Dose Index Volume (CTDIvol): 70.38,54.98,54.98,54.98 mGy Comparison: None Findings: No high-grade stenosis or occlusion identified. The intracranial portions of both internal carotid arteries are demonstrated. The supraclinoid part of the ICA demonstrate moderate atherosclerotic plaque with some focal narrowing. The left A1 segment is dominant. There is a small right A1 segment present. There is a left posterior communicating artery that gives rise to the left posterior cerebral artery ( origin persistence) there is no aneurysm or vascular malformation identified. Generalized atrophy of the brain is present characterized by prominence of the basal cisterns ventricles and sulci. A small cystic focus measuring 8 mm noted within the left basal ganglia consistent with an old lacunar infarct. There is no mass effect or edema identified within the brain. No acute hemorrhage identified. IMPRESSION: No high-grade stenosis, vascular malformation or aneurysm. Mild to moderate atherosclerotic disease of the distal internal carotid arteries at the supraclinoid portions bilaterally. Evidence of an old lacunar infarct involving the left basal ganglia. Generalized mild atrophy of the brain.
[2018-08-23] MEDS ORDERED: Isovue-370 150ml vial INJ PRN (17:15)
--- NOTE | 2018-08-23 18:59 | Diagnostic Imaging Report ---
EXAM: XR Abdomen, 1 View CLINICAL HISTORY: NGT TECHNIQUE: Frontal supine view of the abdomen/pelvis. COMPARISON: 08/22/2018. FINDINGS: Gastrointestinal tract: Unremarkable. Bones/joints: Unremarkable. Tubes, lines and devices: NG tube in stomach. IMPRESSION: NG tube in stomach.
--- NOTE | 2018-08-23 19:15 | Internal Med Progress Note ---
Subjective Date of Service: Aug 23, 2018 Physician Name Andrew Maravilla Attending Physician Jared Padgett MD Current Medications Medications (Trade) Dose Ordered Sig/Horace Route PRN Reason Start Time Stop Time Status Last Admin Dose Admin Acetaminophen (Tylenol) 650 mg Q4H PRN ORAL fever 08/22/18 18:53 09/20/18 18:52 Al Hydroxide/Mg Hydroxide (Mylanta II) 30 ml Q6H PRN ORAL dyspepsia 08/22/18 18:53 09/20/18 18:52 Ceftriaxone Sodium 1 gm/ Dextrose 55 ml @ 110 mls/hr DAILY IVPB 08/23/18 09:00 08/29/18 13:14 08/23/18 10:21 Dextrose 1,000 ml @ 100 mls/hr Q10H IV 08/22/18 19:00 09/21/18 13:12 08/23/18 15:16 Dextrose (Dextrose 50%) 25 ml Q30M PRN IV Hypoglycemia 08/22/18 18:53 09/20/18 18:52 Dextrose (Dextrose 50%) 50 ml Q30M PRN IV Hypoglycemia 08/22/18 19:15 09/20/18 13:13 08/23/18 05:17 Heparin Sodium (Porcine) (Heparin 5000 units/ml) 5,000 units EVERY 12 HOURS SUBQ 08/23/18 21:00 09/22/18 20:59 Insulin Aspart (NovoLOG) BEFORE MEALS AND HS SUBQ 08/22/18 21:00 09/20/18 20:59 08/23/18 17:55 Iopamidol (Isovue-370 150ml) 150 ml NOW PRN INJ Radiology Procedure 08/23/18 17:15 08/23/18 23:59 Lorazepam (Ativan 2mg/ml 1ml) 0.5 mg Q4H PRN IV For Anxiety 08/22/18 18:54 08/28/18 18:53 08/23/18 05:17 Metoclopramide HCl (Reglan) 10 mg Q6H PRN IVP Nausea & Vomiting 08/23/18 10:15 09/22/18 10:14 Morphine Sulfate (Morphine Sulfate) 1 mg Q4H PRN IVP For Pain 08/22/18 18:54 08/28/18 18:53 08/23/18 00:57 Ondansetron HCl (Zofran) 4 mg Q6H PRN IVP Nausea & Vomiting 08/22/18 18:54 09/20/18 18:53 Polyethylene Glycol (Miralax) 17 gm HSPRN PRN ORAL Constipation 08/22/18 18:54 09/21/18 18:53 Risperidone (RisperDAL) 0.5 mg Q6H PRN ORAL agitation 08/22/18 19:15 09/21/18 13:13 Vancomycin HCl (Vanco rx to dose) 1 ea DAILY PRN MISC Per rx protocol 08/23/18 09:00 09/21/18 14:29 Vancomycin/Sodium Chloride 250 ml @ 166.667 mls/hr Q24H IVPB 08/23/18 15:00 08/27/18 14:59 08/23/18 15:16 Zolpidem Tartrate (Ambien) 5 mg HSPRN PRN ORAL Insomnia 08/22/18 18:55 08/29/18 18:54 08/22/18 20:21 Allergies: Coded Allergies: No Known Allergies (Verified , 01/17/08) ROS Limited/Unobtainable: Yes Subjective 52 YO M admitted with altered mental status. Now hypoglycemia and sepsis. Cover for Int Med-Dr Padgett. ICU Objective Last Vital Signs Date Time Temp Pulse Resp B/P (MAP) Pulse Ox O2 Delivery O2 Flow Rate FiO2 08/23/18 18:00 105 17 142/75 (97) 100 08/23/18 16:01 Room Air 08/23/18 16:00 97.5 97.5 Laboratory Tests Test 08/23/18 04:00 White Blood Count 14.8 K/UL (4.8-10.8) H Red Blood Count 4.06 M/UL (4.70-6.10) L Hemoglobin 12.7 G/DL (14.2-18.0) L Hematocrit 35.9 % (42.0-52.0) L Mean Corpuscular Volume 89 FL (80-99) Mean Corpuscular Hemoglobin 31.2 PG (27.0-31.0) H Mean Corpuscular Hemoglobin Concent 35.2 G/DL (32.0-36.0) Red Cell Distribution Width 12.0 % (11.6-14.8) Platelet Count 314 K/UL (150-450) Mean Platelet Volume 4.3 FL (6.5-10.1) L Neutrophils (%) (Auto) % (45.0-75.0) Lymphocytes (%) (Auto) % (20.0-45.0) Monocytes (%) (Auto) % (1.0-10.0) Eosinophils (%) (Auto) % (0.0-3.0) Basophils (%) (Auto) % (0.0-2.0) Differential Total Cells Counted 100 Neutrophils % (Manual) 79 % (45-75) H Lymphocytes % (Manual) 16 % (20-45) L Monocytes % (Manual) 5 % (1-10) Eosinophils % (Manual) 0 % (0-3) Basophils % (Manual) 0 % (0-2) Band Neutrophils 0 % (0-8) Platelet Estimate Adequate Platelet Morphology Normal Red Blood Cell Morphology Normal Sodium Level 132 MMOL/L (136-145) L Potassium Level 3.0 MMOL/L (3.5-5.1) L Chloride Level 96 MMOL/L (98-107) L Carbon Dioxide Level 26 MMOL/L (21-32) Anion Gap 10 mmol/L (5-15) Blood Urea Nitrogen 6 mg/dL (7-18) L Creatinine 0.5 MG/DL (0.55-1.30) L Estimat Glomerular Filtration Rate > 60 mL/min (>60) Glucose Level 125 MG/DL (74-106) H Calcium Level 8.5 MG/DL (8.5-10.1) Total Bilirubin 0.4 MG/DL (0.2-1.0) Aspartate Amino Transf (AST/SGOT) 54 U/L (15-37) H Alanine Aminotransferase (ALT/SGPT) 24 U/L (12-78) Alkaline Phosphatase 83 U/L (46-116) Troponin I 0.000 ng/mL (0.000-0.056) Pro-B-Type Natriuretic Peptide 843 pg/mL (0-125) H Total Protein 6.8 G/DL (6.4-8.2) Albumin 2.9 G/DL (3.4-5.0) L Globulin 3.9 g/dL Albumin/Globulin Ratio 0.7 (1.0-2.7) L Microbiology Date/Time Source Procedure Growth Status 08/21/18 13:45 Blood Blood Culture - Preliminary NO GROWTH AFTER 24 HOURS Resulted 08/21/18 13:30 Blood Blood Culture - Preliminary Streptococcus Species Resulted 08/22/18 00:00 Stool Ordered Intake and Output 08/22/18 08/23/18 19:00 07:00 Intake Total 55 ml 1140 ml Output Total 0 ml 1400 ml Balance 55 ml -260 ml Intake IV Total 55 ml 1100 ml Tube Feeding 40 ml Output Urine Total 1400 ml Stool Total 0 ml # Bowel Movements 2 Objective PHYSICAL EXAMINATION: GENERAL: The patient is thin-appearing male, who is quite agitated. HEENT: Eyes, pupils equal and responsive to light and accommodation. Extraocular movements are intact. NECK: Supple without lymphadenopathy. CHEST: Lungs are clear to auscultation bilaterally without wheezes or rales. CARDIOVASCULAR: Regular rhythm and rate. S1, S2 are normal without murmurs, rubs, or gallops. ABDOMEN: Soft, nontender, and nondistended. Positive bowel sounds. No evidence of hepatosplenomegaly. Currently, no rebound or guarding noted. EXTREMITIES: Negative for clubbing, cyanosis, or edema. RECTAL: Refused. GENITAL: Refused. NEUROLOGIC: The patient is quite agitated. Cranial nerves II through XII are grossly intact without focal deficits. Motor strength is 5/5 bilaterally intact. Deep tendon reflexes are 2+, plantar. Assessment/Plan Problem List: (1) Leukocytosis (2) Diabetes mellitus type II, uncontrolled Assessment & Plan: Await endocrinology consult. (3) Diabetes mellitus Assessment & Plan: ?exogenous insulin vs sepsis? Await endocrinology consult (4) Hypoglycemia Assessment & Plan: FSBG more stable. D/C D10. Start D5NS (5) Sepsis Assessment & Plan: Gram pos cocci. Continue vanco per ID Status: not improved Andrew Maravilla MD Aug 23, 2018 19:15
[2018-08-23] MEDS: Heparin 5000 units/ml inj SUBQ SCH (21:03)
[2018-08-23] MEDS: Zolpidem 5mg tab ORAL PRN (21:06)
[2018-08-24] VITALS (17 sets, daily range): BP systolic 116–168; BP diastolic 65–112
--- NOTE | 2018-08-24 04:52 | Pulmonolgy Critical Care Note ---
Critical Care - Asmt/Plan Problems: (1) Acute encephalopathy (2) Sepsis (3) Hypoglycemia (4) Hypokalemia (5) Bacteremia (6) Diabetes mellitus Respiratory: monitor respiratory rate, adjust FIO2, CXR Cardiac: continue to monitor HR/BP Renal: F/U I&O, check electrolytes Infectious Disease: check cultures Gastrointestinal: continue feedings/current rate Endocrine: check TSH Hematologic: monitor H/H Neurologic: PRN Morphine Prophylaxis: Protonix Notes Reviewed: ssis developer Discussed with: nurses, consultants, protective services case workermanager professional development - Objective Last 24 Hour Vital Signs Date Time Temp Pulse Resp B/P (MAP) Pulse Ox O2 Delivery O2 Flow Rate FiO2 08/24/18 04:00 Room Air 08/24/18 04:00 97.2 101 15 148/77 (100) 100 97.2 08/24/18 03:00 113 17 132/84 (100) 100 08/24/18 02:00 117 27 119/80 (93) 100 08/24/18 01:00 106 14 120/65 (83) 100 08/24/18 00:00 Room Air 08/24/18 00:00 98.6 111 19 116/70 (85) 100 98.6 08/23/18 23:00 102 14 157/71 (99) 100 08/23/18 22:00 111 21 104/53 (70) 100 08/23/18 21:00 107 18 137/66 (89) 100 08/23/18 20:00 Room Air 08/23/18 20:00 98.3 108 13 120/69 (86) 100 98.3 08/23/18 19:00 101 23 114/72 (86) 100 08/23/18 18:00 105 17 142/75 (97) 100 08/23/18 17:00 102 15 157/79 (105) 100 08/23/18 16:01 Room Air 08/23/18 16:00 109 08/23/18 16:00 97.5 107 18 145/78 (100) 100 97.5 08/23/18 15:00 108 18 139/99 (112) 100 08/23/18 14:00 105 17 112/72 (85) 100 08/23/18 13:00 106 17 130/68 (88) 100 08/23/18 12:00 102 08/23/18 12:00 Room Air 08/23/18 12:00 98.1 102 17 121/74 (90) 100 98.1 08/23/18 11:00 92 13 129/71 (90) 100 08/23/18 10:00 98 14 146/76 (99) 100 08/23/18 09:00 93 15 93/64 (74) 100 08/23/18 08:00 Room Air 08/23/18 08:00 98.3 96 13 111/66 (81) 100 98.3 08/23/18 08:00 96 08/23/18 07:00 95 12 109/64 (79) 100 08/23/18 06:00 111 12 136/84 (101) 100 08/23/18 05:00 104 14 130/76 (94) 100 Status: awake Condition: improving HEENT: atraumatic Neck: full ROM Lungs: clear Heart: HR/BP stable Abdomen: soft, active bowel sounds Extremities: edema Decubiti: location Micro: Microbiology Date/Time Source Procedure Growth Status 08/21/18 13:45 Blood Blood Culture - Preliminary NO GROWTH AFTER 24 HOURS Resulted 08/21/18 13:30 Blood Blood Culture - Preliminary Streptococcus Species Resulted 08/22/18 00:00 Stool Ordered Accucheck: 178 Critical Care - Subjective ROS Limited/Unobtainable: Yes ICU Day: 2 Condition: improving EKG Rhythm: Sinus Rhythm Tube Feeding Amount: 0 I&O: Intake and Output 08/23/18 08/24/18 19:00 07:00 Intake Total 2057.334 ml 600 ml Output Total 1435 ml 700 ml Balance 622.334 ml -100 ml Intake IV Total 2007.334 ml 600 ml Tube Feeding 50 ml Output Urine Total 1435 ml 700 ml Vic Kaminski MD Aug 24, 2018 04:52
[2018-08-24 06:14] LABS: BASOPHILS % (AUTO) 0.6 % (0.0-2.0); EOSINOPHILS % (AUTO) 0.4 % (0.0-3.0); HEMATOCRIT 31.9 % (42.0-52.0); HEMOGLOBIN 11.1 G/DL (14.2-18.0); LYMPHOCYTES % (AUTO) 16.3 % (20.0-45.0); MEAN CORPUSCULAR VOLUME 88 FL (80-99); MONOCYTES % (AUTO) 7.9 % (1.0-10.0); NEUTROPHILS % (AUTO) 74.8 % (45.0-75.0); PLATELET COUNT 279 K/UL (150-450); RED BLOOD COUNT 3.61 M/UL (4.70-6.10); RED CELL DISTRIBUTION WIDTH 12.3 % (11.6-14.8); WHITE BLOOD COUNT 9.5 K/UL (4.8-10.8)
[2018-08-24] MEDS: LORazepam Inj 2mg/ml 1ml IV PRN (06:24)
[2018-08-24] MEDS: NovoLOG Insulin Flexpen SUBQ SCH ×4 (06:27→20:21)
[2018-08-24 06:28] LABS: ALANINE AMINOTRANSFERASE 33 U/L (12-78); ALBUMIN 2.6 G/DL (3.4-5.0); ALBUMIN/GLOBULIN RATIO 0.8 (1.0-2.7); ALKALINE PHOSPHATASE 76 U/L (46-116); ANION GAP 9 mmol/L (5-15); ASPARTATE AMINO TRANSFERASE 43 U/L (15-37); BILIRUBIN,TOTAL 0.4 MG/DL (0.2-1.0); BLOOD UREA NITROGEN 5 mg/dL (7-18); CALCIUM 8.3 MG/DL (8.5-10.1); CARBON DIOXIDE 25 MMOL/L (21-32); CHLORIDE 106 MMOL/L (98-107); CREATININE 0.5 MG/DL (0.55-1.30); PHOSPHORUS 2.5 MG/DL (2.5-4.9); POTASSIUM 3.8 MMOL/L (3.5-5.1); SODIUM 140 MMOL/L (136-145)
--- NOTE | 2018-08-24 08:07 | Infectious Diseases Prog Note ---
Assessment/Plan Assessment/Plan Sepsis Hypothermia, SP Leukocytosis- improving -u/a neg -CXR: n o acute disease Gram positive bacteremia- real vs contaminant -Bcx / enterococcus SEvere hypoglycemia- ?extra insulin administration vs r/o insulinoma DM Plan: -Continue empiric Ceftriaxone #4 and IV Vancomycin #3 for now pending cultures -f/u cx -Monitor CBC/CMP, temperatures -Repeat Bcx x2 -f/u 2d Echo -Endocrine eval Will continue to follow along with you. Subjective Allergies: Coded Allergies: No Known Allergies (Verified , 01/17/08) Subjective Afebrile Leukocytosis resolved No complaints Blood sugar high this am Objective Vital Signs Last 24 Hour Vital Signs Date Time Temp Pulse Resp B/P (MAP) Pulse Ox O2 Delivery O2 Flow Rate FiO2 08/24/18 07:00 109 22 158/80 (106) 100 08/24/18 06:00 115 08/24/18 06:00 115 22 130/82 (98) 100 08/24/18 05:00 105 17 131/112 (118) 100 08/24/18 04:00 Room Air 08/24/18 04:00 97.2 101 15 148/77 (100) 100 97.2 08/24/18 03:00 113 17 132/84 (100) 100 08/24/18 02:00 117 27 119/80 (93) 100 08/24/18 01:00 106 14 120/65 (83) 100 08/24/18 00:00 Room Air 08/24/18 00:00 98.6 111 19 116/70 (85) 100 98.6 08/24/18 00:00 107 08/23/18 23:00 102 14 157/71 (99) 100 08/23/18 22:00 111 21 104/53 (70) 100 08/23/18 21:00 107 18 137/66 (89) 100 08/23/18 20:00 Room Air 08/23/18 20:00 119 08/23/18 20:00 98.3 108 13 120/69 (86) 100 98.3 08/23/18 19:00 101 23 114/72 (86) 100 08/23/18 18:00 105 17 142/75 (97) 100 08/23/18 17:00 102 15 157/79 (105) 100 08/23/18 16:01 Room Air 08/23/18 16:00 109 08/23/18 16:00 97.5 107 18 145/78 (100) 100 97.5 08/23/18 15:00 108 18 139/99 (112) 100 08/23/18 14:00 105 17 112/72 (85) 100 08/23/18 13:00 106 17 130/68 (88) 100 08/23/18 12:00 102 08/23/18 12:00 Room Air 08/23/18 12:00 98.1 102 17 121/74 (90) 100 98.1 08/23/18 11:00 92 13 129/71 (90) 100 08/23/18 10:00 98 14 146/76 (99) 100 08/23/18 09:00 93 15 93/64 (74) 100 Height (Feet): 5 Height (Inches): 3.00 Weight (Pounds): 88 Objective General Appearance: no apparent distress, alert, non-toxic, cachetic HEENT: normocephalic, atraumatic, EOMI, normal pharynx Respiratory: ungs clear, speaking full sentences Cardiovascular: regular rate, rhythm, no edema Gastrointestinal: normal bowel sounds, non tender, soft, non-distended Microbiology Date/Time Source Procedure Growth Status 08/21/18 13:45 Blood Blood Culture - Preliminary NO GROWTH AFTER 24 HOURS Resulted 08/21/18 13:30 Blood Blood Culture - Final Enterococcus Faecium Complete 08/22/18 00:00 Stool Ordered Laboratory Tests Test 08/24/18 04:30 White Blood Count 9.5 K/UL (4.8-10.8) Red Blood Count 3.61 M/UL (4.70-6.10) L Hemoglobin 11.1 G/DL (14.2-18.0) L Hematocrit 31.9 % (42.0-52.0) L Mean Corpuscular Volume 88 FL (80-99) Mean Corpuscular Hemoglobin 30.6 PG (27.0-31.0) Mean Corpuscular Hemoglobin Concent 34.6 G/DL (32.0-36.0) Red Cell Distribution Width 12.3 % (11.6-14.8) Platelet Count 279 K/UL (150-450) Mean Platelet Volume 4.4 FL (6.5-10.1) L Neutrophils (%) (Auto) 74.8 % (45.0-75.0) Lymphocytes (%) (Auto) 16.3 % (20.0-45.0) L Monocytes (%) (Auto) 7.9 % (1.0-10.0) Eosinophils (%) (Auto) 0.4 % (0.0-3.0) Basophils (%) (Auto) 0.6 % (0.0-2.0) Sodium Level 140 MMOL/L (136-145) Potassium Level 3.8 MMOL/L (3.5-5.1) Chloride Level 106 MMOL/L (98-107) Carbon Dioxide Level 25 MMOL/L (21-32) Anion Gap 9 mmol/L (5-15) Blood Urea Nitrogen 5 mg/dL (7-18) L Creatinine 0.5 MG/DL (0.55-1.30) L Estimat Glomerular Filtration Rate > 60 mL/min (>60) Glucose Level 157 MG/DL (74-106) H Calcium Level 8.3 MG/DL (8.5-10.1) L Phosphorus Level 2.5 MG/DL (2.5-4.9) Magnesium Level 1.8 MG/DL (1.8-2.4) Total Bilirubin 0.4 MG/DL (0.2-1.0) Aspartate Amino Transf (AST/SGOT) 43 U/L (15-37) H Alanine Aminotransferase (ALT/SGPT) 33 U/L (12-78) Alkaline Phosphatase 76 U/L (46-116) Total Protein 6.0 G/DL (6.4-8.2) L Albumin 2.6 G/DL (3.4-5.0) L Globulin 3.4 g/dL Albumin/Globulin Ratio 0.8 (1.0-2.7) L Current Medications Medications (Trade) Dose Ordered Sig/Horace Route PRN Reason Start Time Stop Time Status Last Admin Dose Admin Acetaminophen (Tylenol) 650 mg Q4H PRN ORAL fever 08/22/18 18:53 09/20/18 18:52 Al Hydroxide/Mg Hydroxide (Mylanta II) 30 ml Q6H PRN ORAL dyspepsia 08/22/18 18:53 09/20/18 18:52 Ceftriaxone Sodium 1 gm/ Dextrose 55 ml @ 110 mls/hr DAILY IVPB 08/23/18 09:00 08/29/18 13:14 08/23/18 10:21 Dextrose (Dextrose 50%) STAT PRN IV Hypoglycemia 08/24/18 05:00 09/23/18 04:59 Dextrose (Dextrose 50%) 25 ml Q30M PRN IV Hypoglycemia 08/22/18 18:53 09/20/18 18:52 Dextrose (Dextrose 50%) 50 ml Q30M PRN IV Hypoglycemia 08/22/18 19:15 09/20/18 13:13 08/23/18 22:39 Dextrose/ Electrolytes 1,000 ml @ 75 mls/hr [id number] IV 08/23/18 20:00 09/22/18 19:59 08/23/18 20:00 Heparin Sodium (Porcine) (Heparin 5000 units/ml) 5,000 units EVERY 12 HOURS SUBQ 08/23/18 21:00 09/22/18 20:59 08/23/18 21:03 Insulin Aspart (NovoLOG) BEFORE MEALS AND HS SUBQ 08/24/18 06:30 09/23/18 06:29 Lorazepam (Ativan 2mg/ml 1ml) 0.5 mg Q4H PRN IV For Anxiety 08/22/18 18:54 08/28/18 18:53 08/24/18 06:24 Metoclopramide HCl (Reglan) 10 mg Q6H PRN IVP Nausea & Vomiting 08/23/18 10:15 09/22/18 10:14 Morphine Sulfate (Morphine Sulfate) 1 mg Q4H PRN IVP For Pain 08/22/18 18:54 08/28/18 18:53 08/23/18 00:57 Ondansetron HCl (Zofran) 4 mg Q6H PRN IVP Nausea & Vomiting 08/22/18 18:54 09/20/18 18:53 Polyethylene Glycol (Miralax) 17 gm HSPRN PRN ORAL Constipation 08/22/18 18:54 09/21/18 18:53 Risperidone (RisperDAL) 0.5 mg Q6H PRN ORAL agitation 08/22/18 19:15 09/21/18 13:13 08/23/18 21:07 Vancomycin HCl (Vanco rx to dose) 1 ea DAILY PRN MISC Per rx protocol 10/12/18 09:00 09/21/18 14:29 Vancomycin/Sodium Chloride 250 ml @ 166.667 mls/hr Q24H IVPB 08/23/18 15:00 08/27/18 14:59 08/23/18 15:16 Zolpidem Tartrate (Ambien) 5 mg HSPRN PRN ORAL Insomnia 08/22/18 18:55 08/29/18 18:54 08/23/18 21:06 Rohith Potter MD Aug 24, 2018 08:07
[2018-08-24] MEDS ORDERED: Tubing IV Secondary IV ONE ×2 (10:38)
[2018-08-24] MEDS: cefTRIAXone 1 GM in D5W 55 ML IVPB SCH (10:44)
[2018-08-24] MEDS: Heparin 5000 units/ml inj SUBQ SCH ×2 (10:46→20:22)
[2018-08-24] MEDS ORDERED: Mylanta II UD 30ml ORAL PRN (14:30)
[2018-08-24] MEDS ORDERED: Metoclopramide 10mg/2ml Inj IVP PRN (14:30)
[2018-08-24] MEDS: Vancomycin 750mg/NS 250ml 250 ML IVPB SCH (14:47)
[2018-08-24] MEDS ORDERED: Morphine Sulfate 2mg/ml Inj IVP PRN (15:00)
[2018-08-24] MEDS ORDERED: LORazepam Inj 2mg/ml 1ml IV PRN (15:00)
--- NOTE | 2018-08-24 15:32 | Internal Med Progress Note ---
Subjective Date of Service: Aug 24, 2018 Physician Name RenitaAndrew Attending Physician Jared Padgett MD Current Medications Medications (Trade) Dose Ordered Sig/Horace Route PRN Reason Start Time Stop Time Status Last Admin Dose Admin Acetaminophen (Tylenol) 650 mg Q4H PRN ORAL T>100.5 08/24/18 15:00 09/20/18 18:52 Al Hydroxide/Mg Hydroxide (Mylanta II) 30 ml Q6H PRN ORAL dyspepsia 08/24/18 14:30 09/20/18 14:29 Ceftriaxone Sodium 1 gm/ Dextrose 55 ml @ 110 mls/hr DAILY IVPB 08/25/18 09:00 08/29/18 13:14 Dextrose (Dextrose 50%) 25 ml Q30M PRN IV Hypoglycemia 08/24/18 14:30 09/20/18 18:52 Dextrose (Dextrose 50%) 50 ml Q30M PRN IV Hypoglycemia 08/24/18 14:15 09/20/18 13:13 Dextrose/ Electrolytes 1,000 ml @ 75 mls/hr [id number] IV 08/24/18 14:15 09/22/18 19:59 08/24/18 14:46 Heparin Sodium (Porcine) (Heparin 5000 units/ml) 5,000 units EVERY 12 HOURS SUBQ 08/24/18 21:00 09/22/18 20:59 Insulin Aspart (NovoLOG) BEFORE MEALS AND HS SUBQ 08/24/18 16:30 09/23/18 06:29 Lorazepam (Ativan 2mg/ml 1ml) 0.5 mg Q4H PRN IV For Anxiety 08/24/18 15:00 08/28/18 18:53 Metoclopramide HCl (Reglan) 10 mg Q6H PRN IVP Nausea & Vomiting 08/24/18 14:30 09/22/18 14:29 Morphine Sulfate (Morphine Sulfate) 1 mg Q4H PRN IVP PAIN 4-10 08/24/18 15:00 08/28/18 18:53 Ondansetron HCl (Zofran) 4 mg Q6H PRN IVP Nausea & Vomiting 08/24/18 14:30 09/20/18 14:29 Polyethylene Glycol (Miralax) 17 gm HSPRN PRN ORAL Constipation 08/24/18 21:00 09/21/18 20:59 Risperidone (RisperDAL) 0.5 mg Q6H PRN ORAL agitation 08/24/18 14:30 09/21/18 14:29 Vancomycin HCl (Vanco rx to dose) 1 ea DAILY PRN MISC Per rx protocol 08/24/18 14:30 09/23/18 14:29 Vancomycin/Sodium Chloride 250 ml @ 166.667 mls/hr Q24H IVPB 08/24/18 15:00 08/27/18 14:59 08/24/18 14:47 Zolpidem Tartrate (Ambien) 5 mg HSPRN PRN ORAL Insomnia 08/24/18 21:00 08/29/18 20:59 Allergies: Coded Allergies: No Known Allergies (Verified , 01/17/08) ROS Limited/Unobtainable: No Constitutional: Reports: no symptoms HEENT: Reports: no symptoms Cardiovascular: Reports: no symptoms Respiratory: Reports: no symptoms Gastrointestinal/Abdominal: Reports: no symptoms Genitourinary: Reports: no symptoms Neurologic/Psychiatric: Reports: no symptoms Subjective 52 YO M admitted with altered mental status. Now hypoglycemia and sepsis. Cover for Int Med-Dr Padgett. ICU Objective Last Vital Signs Date Time Temp Pulse Resp B/P (MAP) Pulse Ox O2 Delivery O2 Flow Rate FiO2 08/24/18 14:00 116 20 147/77 (100) 100 08/24/18 12:00 Room Air 08/24/18 08:00 98.8 98.8 Laboratory Tests Test 08/24/18 04:30 White Blood Count 9.5 K/UL (4.8-10.8) Red Blood Count 3.61 M/UL (4.70-6.10) L Hemoglobin 11.1 G/DL (14.2-18.0) L Hematocrit 31.9 % (42.0-52.0) L Mean Corpuscular Volume 88 FL (80-99) Mean Corpuscular Hemoglobin 30.6 PG (27.0-31.0) Mean Corpuscular Hemoglobin Concent 34.6 G/DL (32.0-36.0) Red Cell Distribution Width 12.3 % (11.6-14.8) Platelet Count 279 K/UL (150-450) Mean Platelet Volume 4.4 FL (6.5-10.1) L Neutrophils (%) (Auto) 74.8 % (45.0-75.0) Lymphocytes (%) (Auto) 16.3 % (20.0-45.0) L Monocytes (%) (Auto) 7.9 % (1.0-10.0) Eosinophils (%) (Auto) 0.4 % (0.0-3.0) Basophils (%) (Auto) 0.6 % (0.0-2.0) Sodium Level 140 MMOL/L (136-145) Potassium Level 3.8 MMOL/L (3.5-5.1) Chloride Level 106 MMOL/L (98-107) Carbon Dioxide Level 25 MMOL/L (21-32) Anion Gap 9 mmol/L (5-15) Blood Urea Nitrogen 5 mg/dL (7-18) L Creatinine 0.5 MG/DL (0.55-1.30) L Estimat Glomerular Filtration Rate > 60 mL/min (>60) Glucose Level 157 MG/DL (74-106) H Calcium Level 8.3 MG/DL (8.5-10.1) L Phosphorus Level 2.5 MG/DL (2.5-4.9) Magnesium Level 1.8 MG/DL (1.8-2.4) Total Bilirubin 0.4 MG/DL (0.2-1.0) Aspartate Amino Transf (AST/SGOT) 43 U/L (15-37) H Alanine Aminotransferase (ALT/SGPT) 33 U/L (12-78) Alkaline Phosphatase 76 U/L (46-116) Total Protein 6.0 G/DL (6.4-8.2) L Albumin 2.6 G/DL (3.4-5.0) L Globulin 3.4 g/dL Albumin/Globulin Ratio 0.8 (1.0-2.7) L Microbiology Date/Time Source Procedure Growth Status 08/22/18 00:00 Stool Ordered Intake and Output 08/23/18 08/24/18 19:00 07:00 Intake Total 2057.334 ml 825 ml Output Total 1435 ml 1500 ml Balance 622.334 ml -675 ml Intake IV Total 2007.334 ml 825 ml Tube Feeding 50 ml Output Urine Total 1435 ml 1500 ml Objective PHYSICAL EXAMINATION: GENERAL: The patient is thin-appearing male, who is quite agitated. HEENT: Eyes, pupils equal and responsive to light and accommodation. Extraocular movements are intact. NECK: Supple without lymphadenopathy. CHEST: Lungs are clear to auscultation bilaterally without wheezes or rales. CARDIOVASCULAR: Regular rhythm and rate. S1, S2 are normal without murmurs, rubs, or gallops. ABDOMEN: Soft, nontender, and nondistended. Positive bowel sounds. No evidence of hepatosplenomegaly. Currently, no rebound or guarding noted. EXTREMITIES: Negative for clubbing, cyanosis, or edema. RECTAL: Refused. GENITAL: Refused. NEUROLOGIC: The patient is quite agitated. Cranial nerves II through XII are grossly intact without focal deficits. Motor strength is 5/5 bilaterally intact. Deep tendon reflexes are 2+, plantar. Assessment/Plan Problem List: (1) Leukocytosis (2) Diabetes mellitus type II, uncontrolled Assessment & Plan: Await endocrinology consult. (3) Diabetes mellitus Assessment & Plan: ?exogenous insulin vs sepsis? Await endocrinology consult (4) Hypoglycemia Assessment & Plan: FSBG more stable. D/C D10. Start D5NS (5) Sepsis Assessment & Plan: Gram pos cocci. Continue vanco per ID Status: progressing Andrew Maravilla MD Aug 24, 2018 15:32
--- NOTE | 2018-08-24 17:47 | Consultation ---
DATE OF CONSULTATION: 08/24/2018 ENDOCRINOLOGY CONSULTATION CONSULTING PHYSICIAN: Robert Yap M.D. REFERRING PHYSICIAN: Jared Padgett M.D. REASON FOR CONSULTATION: Hypoglycemia. HISTORY OF PRESENT ILLNESS: The patient is a 52-year-old male with history of diabetes, who presented with altered mental status and hypoglycemia, admitted to the ICU, treated with dextrose 10%, glucose stabilized. Endocrinology was consulted for management of diabetes. PAST MEDICAL HISTORY: Type 2 diabetes. PAST SURGICAL HISTORY: None. MEDICATIONS: As an outpatient insulin unknown dose, metformin unknown dose. ALLERGIES TO MEDICATION: None. SOCIAL HISTORY: The patient is . Lives with his brother. No smoking, alcohol, or drug use. REVIEW OF SYSTEMS: As per HPI. PHYSICAL EXAMINATION: GENERAL: He is awake and alert. VITAL SIGNS: Blood pressure is 160/80, pulse of 80, temperature 98.2, and respiratory rate 18. HEENT: Pupils are equal and reactive to light. Sclerae anicteric. NECK: No JVD. No thyromegaly. No bruit. LUNGS: Clear. HEART: Regular rate and rhythm. ABDOMEN: Positive bowel sounds. EXTREMITIES: No clubbing, cyanosis, or edema. LABORATORY VALUES: WBC 9, hemoglobin 11.1, hematocrit 31.9, platelet count 279. Sodium 140, potassium 3.8, chloride 106, bicarb 25, BUN 5, creatinine 0.5, glucose 157. Lactic acid was normal. TSH is normal. DIAGNOSES: 1. Hypoglycemia, improved. 2. Diabetes, out of control. PLAN: 1. Start diabetic diet. 2. Blood glucose monitoring before meals and at bedtime. 3. Dextrose 5% will be on board. 4. I will follow the patient closely during hospital stay. Thank you Dr. Padgett for the courtesy of this consultation. Robert Yap M.D. DR: TIFFANIE/MELONIE JOB#: [id number] CC:
--- NOTE | 2018-08-24 18:05 | Cardiac Electrophysiology PN ---
Assessment/Plan Assessment/Plan 1. Altered mental status likely due to recurrent hypoglycemia. Resolved. Alert now. Echocardiogram showed Nl EF 55% 2. Recurrent hypoglycemia. Further evaluation by Endocrinology 3. sepsis with high WBC. On Abx Subjective Subjective Alert in NAD. Just transferred out of ICU. No CP or SOB.Eating Objective Last 24 Hour Vital Signs Date Time Temp Pulse Resp B/P (MAP) Pulse Ox O2 Delivery O2 Flow Rate FiO2 08/24/18 16:00 98.2 96 20 128/84 (99) 100 98.2 08/24/18 16:00 108 08/24/18 14:00 116 20 147/77 (100) 100 08/24/18 14:00 102 08/24/18 13:00 110 20 148/73 (98) 100 08/24/18 12:19 100 15 138/80 (99) 100 08/24/18 12:00 Room Air 08/24/18 12:00 111 21 168/91 (116) 100 08/24/18 11:00 108 18 149/78 (101) 99 08/24/18 10:00 113 17 146/77 (100) 99 08/24/18 09:00 111 16 134/79 (97) 100 08/24/18 08:00 Room Air 08/24/18 08:00 98.8 107 15 147/78 (101) 100 98.8 08/24/18 07:00 109 22 158/80 (106) 100 08/24/18 06:00 115 08/24/18 06:00 115 22 130/82 (98) 100 08/24/18 05:00 105 17 131/112 (118) 100 08/24/18 04:00 Room Air 08/24/18 04:00 97.2 101 15 148/77 (100) 100 97.2 08/24/18 03:00 113 17 132/84 (100) 100 08/24/18 02:00 117 27 119/80 (93) 100 08/24/18 01:00 106 14 120/65 (83) 100 08/24/18 00:00 Room Air 08/24/18 00:00 98.6 111 19 116/70 (85) 100 98.6 08/24/18 00:00 107 08/23/18 23:00 102 14 157/71 (99) 100 08/23/18 22:00 111 21 104/53 (70) 100 08/23/18 21:00 107 18 137/66 (89) 100 08/23/18 20:00 Room Air 08/23/18 20:00 119 08/23/18 20:00 98.3 108 13 120/69 (86) 100 98.3 08/23/18 19:00 101 23 114/72 (86) 100 Intake and Output 08/23/18 08/24/18 19:00 07:00 Intake Total 2057.334 ml 825 ml Output Total 1435 ml 1500 ml Balance 622.334 ml -675 ml Intake IV Total 2007.334 ml 825 ml Tube Feeding 50 ml Output Urine Total 1435 ml 1500 ml Laboratory Tests Test 08/24/18 04:30 White Blood Count 9.5 K/UL (4.8-10.8) Red Blood Count 3.61 M/UL (4.70-6.10) L Hemoglobin 11.1 G/DL (14.2-18.0) L Hematocrit 31.9 % (42.0-52.0) L Mean Corpuscular Volume 88 FL (80-99) Mean Corpuscular Hemoglobin 30.6 PG (27.0-31.0) Mean Corpuscular Hemoglobin Concent 34.6 G/DL (32.0-36.0) Red Cell Distribution Width 12.3 % (11.6-14.8) Platelet Count 279 K/UL (150-450) Mean Platelet Volume 4.4 FL (6.5-10.1) L Neutrophils (%) (Auto) 74.8 % (45.0-75.0) Lymphocytes (%) (Auto) 16.3 % (20.0-45.0) L Monocytes (%) (Auto) 7.9 % (1.0-10.0) Eosinophils (%) (Auto) 0.4 % (0.0-3.0) Basophils (%) (Auto) 0.6 % (0.0-2.0) Sodium Level 140 MMOL/L (136-145) Potassium Level 3.8 MMOL/L (3.5-5.1) Chloride Level 106 MMOL/L (98-107) Carbon Dioxide Level 25 MMOL/L (21-32) Anion Gap 9 mmol/L (5-15) Blood Urea Nitrogen 5 mg/dL (7-18) L Creatinine 0.5 MG/DL (0.55-1.30) L Estimat Glomerular Filtration Rate > 60 mL/min (>60) Glucose Level 157 MG/DL (74-106) H Calcium Level 8.3 MG/DL (8.5-10.1) L Phosphorus Level 2.5 MG/DL (2.5-4.9) Magnesium Level 1.8 MG/DL (1.8-2.4) Total Bilirubin 0.4 MG/DL (0.2-1.0) Aspartate Amino Transf (AST/SGOT) 43 U/L (15-37) H Alanine Aminotransferase (ALT/SGPT) 33 U/L (12-78) Alkaline Phosphatase 76 U/L (46-116) Total Protein 6.0 G/DL (6.4-8.2) L Albumin 2.6 G/DL (3.4-5.0) L Globulin 3.4 g/dL Albumin/Globulin Ratio 0.8 (1.0-2.7) L Microbiology Date/Time Source Procedure Growth Status 08/22/18 00:00 Stool Ordered Objective HEAD AND NECK: No JVD. LUNGS: Clear. CARDIOVASCULAR: Regular S1 and S2 with no gallop or murmur. ABDOMEN: Soft. EXTREMITIES: No pitting edema. Mert iLz MD Aug 24, 2018 18:05
[2018-08-24] MEDS ORDERED: Miralax 17gm pkt ORAL PRN (21:00)
[2018-08-24] MEDS ORDERED: Zolpidem 5mg tab ORAL PRN (21:00)
--- NOTE | 2018-08-24 23:44 | General Progress Note ---
Assessment/Plan Problem List: (1) Failure to thrive Qualifiers: Qualified Codes: R62.7 - Adult failure to thrive (2) Diabetes mellitus ICD Codes: E11.9 - Type 2 diabetes mellitus without complications SNOMED: 15779947 (3) Acute encephalopathy ICD Codes: G93.40 - Encephalopathy, unspecified SNOMED: 16065423, 782999351 Status: stable, progressing Assessment/Plan seroquel prn provided ro Subjective Neurologic/Psychiatric: Reports: anxiety, depressed Allergies: Coded Allergies: No Known Allergies (Verified , 01/17/08) Objective Last 24 Hour Vital Signs Date Time Temp Pulse Resp B/P (MAP) Pulse Ox O2 Delivery O2 Flow Rate FiO2 08/24/18 16:00 98.2 96 20 128/84 (99) 100 98.2 08/24/18 16:00 108 08/24/18 14:00 116 20 147/77 (100) 100 08/24/18 14:00 102 08/24/18 13:00 110 20 148/73 (98) 100 08/24/18 12:19 100 15 138/80 (99) 100 08/24/18 12:00 Room Air 08/24/18 12:00 111 21 168/91 (116) 100 08/24/18 11:00 108 18 149/78 (101) 99 08/24/18 10:00 113 17 146/77 (100) 99 08/24/18 09:00 111 16 134/79 (97) 100 08/24/18 08:00 Room Air 08/24/18 08:00 98.8 107 15 147/78 (101) 100 98.8 08/24/18 07:00 109 22 158/80 (106) 100 08/24/18 06:00 115 08/24/18 06:00 115 22 130/82 (98) 100 08/24/18 05:00 105 17 131/112 (118) 100 08/24/18 04:00 Room Air 08/24/18 04:00 97.2 101 15 148/77 (100) 100 97.2 08/24/18 03:00 113 17 132/84 (100) 100 08/24/18 02:00 117 27 119/80 (93) 100 08/24/18 01:00 106 14 120/65 (83) 100 08/24/18 00:00 Room Air 08/24/18 00:00 98.6 111 19 116/70 (85) 100 98.6 08/24/18 00:00 107 Intake and Output 08/23/18 08/24/18 19:00 07:00 Intake Total 2057.334 ml 825 ml Output Total 1435 ml 1500 ml Balance 622.334 ml -675 ml IV Total 2007.334 ml 825 ml Tube Feeding 50 ml Output Urine Total 1435 ml 1500 ml Laboratory Tests 08/24/18 04:30: White Blood Count 9.5, Red Blood Count 3.61L, Hemoglobin 11.1L, Hematocrit 31.9L , Mean Corpuscular Volume 88, Mean Corpuscular Hemoglobin 30.6, Mean Corpuscular Hemoglobin Concent 34.6, Red Cell Distribution Width 12.3, Platelet Count 279, Mean Platelet Volume 4.4L, Neutrophils (%) (Auto) 74.8, Lymphocytes ( %) (Auto) 16.3L, Monocytes (%) (Auto) 7.9, Eosinophils (%) (Auto) 0.4, Basophils (%) (Auto) 0.6, Sodium Level 140, Potassium Level 3.8, Chloride Level 106, Carbon Dioxide Level 25, Anion Gap 9, Blood Urea Nitrogen 5L, Creatinine 0.5L, Estimat Glomerular Filtration Rate > 60, Glucose Level 157H, Calcium Level 8.3L, Phosphorus Level 2.5, Magnesium Level 1.8, Total Bilirubin 0.4, Aspartate Amino Transf (AST/SGOT) 43H, Alanine Aminotransferase (ALT/SGPT) 33, Alkaline Phosphatase 76, Total Protein 6.0L, Albumin 2.6L, Globulin 3.4, Albumin /Globulin Ratio 0.8L Height (Feet): 5 Height (Inches): 3.00 Weight (Pounds): 89 General Appearance: no apparent distress, alert Neurologic: depressed affect Aric Peck MD Aug 24, 2018 23:44
[2018-08-25] MEDS: NovoLOG Insulin Flexpen SUBQ SCH ×4 (07:00→21:36)
[2018-08-25 08:00] VITALS: BP 138/89
[2018-08-25 08:04] LABS: BASOPHILS % (AUTO) 0.3 % (0.0-2.0); EOSINOPHILS % (AUTO) 0.3 % (0.0-3.0); HEMATOCRIT 35.7 % (42.0-52.0); HEMOGLOBIN 12.5 G/DL (14.2-18.0); LYMPHOCYTES % (AUTO) 19.4 % (20.0-45.0); MEAN CORPUSCULAR VOLUME 89 FL (80-99); MONOCYTES % (AUTO) 4.9 % (1.0-10.0); NEUTROPHILS % (AUTO) 75.2 % (45.0-75.0); PLATELET COUNT 343 K/UL (150-450); RED CELL DISTRIBUTION WIDTH 12.2 % (11.6-14.8); WHITE BLOOD COUNT 7.9 K/UL (4.8-10.8)
[2018-08-25 08:20] LABS: ALANINE AMINOTRANSFERASE 37 U/L (12-78); ALBUMIN/GLOBULIN RATIO 0.7 (1.0-2.7); ALKALINE PHOSPHATASE 95 U/L (46-116); ANION GAP 7 mmol/L (5-15); ASPARTATE AMINO TRANSFERASE 41 U/L (15-37); BILIRUBIN,TOTAL 0.5 MG/DL (0.2-1.0); BLOOD UREA NITROGEN 8 mg/dL (7-18); CALCIUM 9.1 MG/DL (8.5-10.1); CARBON DIOXIDE 30 MMOL/L (21-32); CHLORIDE 104 MMOL/L (98-107); CREATININE 0.5 MG/DL (0.55-1.30); PHOSPHORUS 2.4 MG/DL (2.5-4.9); POTASSIUM 3.3 MMOL/L (3.5-5.1); SODIUM 141 MMOL/L (136-145)
[2018-08-25] MEDS: cefTRIAXone 1 GM in D5W 55 ML IVPB SCH (08:39)
[2018-08-25] MEDS: Heparin 5000 units/ml inj SUBQ SCH ×2 (08:52→21:42)
--- NOTE | 2018-08-25 10:30 | General Progress Note ---
Assessment/Plan Problem List: (1) Hypoglycemia ICD Codes: E16.2 - Hypoglycemia, unspecified SNOMED: 578895047 (2) Sepsis ICD Codes: A41.9 - Sepsis, unspecified organism SNOMED: 08680906 Qualifiers: Qualified Codes: A41.9 - Sepsis, unspecified organism (3) Diabetes mellitus type II, uncontrolled ICD Codes: E11.65 - Type 2 diabetes mellitus with hyperglycemia SNOMED: 17745801, 845335391 Assessment/Plan continue IVF continue SSI no need for scheduled diabetic medications or basal insulin for now Subjective Allergies: Coded Allergies: No Known Allergies (Verified , 01/17/08) All Systems: reviewed and negative except above Subjective feeling better glucose values are stable w/o hypoglycemia Objective Last 24 Hour Vital Signs Date Time Temp Pulse Resp B/P (MAP) Pulse Ox O2 Delivery O2 Flow Rate FiO2 08/25/18 09:00 Room Air 08/25/18 00:00 96 08/24/18 21:00 Room Air 08/24/18 20:00 96 08/24/18 16:00 98.2 96 20 128/84 (99) 100 98.2 08/24/18 16:00 108 08/24/18 14:00 116 20 147/77 (100) 100 08/24/18 14:00 102 08/24/18 13:00 110 20 148/73 (98) 100 08/24/18 12:19 100 15 138/80 (99) 100 08/24/18 12:00 Room Air 08/24/18 12:00 111 21 168/91 (116) 100 08/24/18 11:00 108 18 149/78 (101) 99 Intake and Output 08/24/18 08/25/18 19:00 07:00 Intake Total 800 ml Output Total 1300 ml Balance -500 ml Intake Oral 200 ml Other 600 ml Output Urine Total 1300 ml # Bowel Movements 4 Laboratory Tests 08/25/18 06:40: White Blood Count 7.9, Red Blood Count 4.00L, Hemoglobin 12.5L, Hematocrit 35.7L , Mean Corpuscular Volume 89, Mean Corpuscular Hemoglobin 31.1H, Mean Corpuscular Hemoglobin Concent 34.9, Red Cell Distribution Width 12.2, Platelet Count 343, Mean Platelet Volume 4.7L, Neutrophils (%) (Auto) 75.2H, Lymphocytes (%) (Auto) 19.4L, Monocytes (%) (Auto) 4.9, Eosinophils (%) (Auto) 0.3, Basophils (%) (Auto) 0.3, Sodium Level 141, Potassium Level 3.3L, Chloride Level 104, Carbon Dioxide Level 30, Anion Gap 7, Blood Urea Nitrogen 8, Creatinine 0.5L, Estimat Glomerular Filtration Rate > 60, Glucose Level 110H, Calcium Level 9.1, Phosphorus Level 2.4L, Magnesium Level 1.8, Total Bilirubin 0.5, Aspartate Amino Transf (AST/SGOT) 41H, Alanine Aminotransferase (ALT/SGPT) 37, Alkaline Phosphatase 95, Total Protein 7.2, Albumin 3.0L, Globulin 4.2, Albumin/Globulin Ratio 0.7L Height (Feet): 5 Height (Inches): 3.00 Weight (Pounds): 88 General Appearance: no apparent distress Neck: normal alignment Cardiovascular: normal rate Respiratory/Chest: lungs clear Abdomen: normal bowel sounds Objective Current Medications Medications (Trade) Dose Ordered Sig/Horace Route PRN Reason Start Time Stop Time Status Last Admin Dose Admin Acetaminophen (Tylenol) 650 mg Q4H PRN ORAL T>100.5 08/24/18 15:00 09/20/18 18:52 08/25/18 08:41 Al Hydroxide/Mg Hydroxide (Mylanta II) 30 ml Q6H PRN ORAL dyspepsia 08/24/18 14:30 09/20/18 14:29 Ceftriaxone Sodium 1 gm/ Dextrose 55 ml @ 110 mls/hr DAILY IVPB 08/25/18 09:00 08/29/18 13:14 08/25/18 08:39 Dextrose (Dextrose 50%) 25 ml Q30M PRN IV Hypoglycemia 08/24/18 14:30 09/20/18 18:52 Dextrose (Dextrose 50%) 50 ml Q30M PRN IV Hypoglycemia 08/24/18 14:15 09/20/18 13:13 Dextrose/ Electrolytes 1,000 ml @ 75 mls/hr [id number] IV 08/24/18 14:15 09/22/18 19:59 08/25/18 03:35 Heparin Sodium (Porcine) (Heparin 5000 units/ml) 5,000 units EVERY 12 HOURS SUBQ 08/24/18 21:00 09/22/18 20:59 08/25/18 08:52 Insulin Aspart (NovoLOG) BEFORE MEALS AND HS SUBQ 08/24/18 16:30 09/23/18 06:29 08/25/18 07:00 Lorazepam (Ativan 2mg/ml 1ml) 0.5 mg Q4H PRN IV For Anxiety 08/24/18 15:00 08/28/18 18:53 08/25/18 08:41 Metoclopramide HCl (Reglan) 10 mg Q6H PRN IVP Nausea & Vomiting 08/24/18 14:30 09/22/18 14:29 Morphine Sulfate (Morphine Sulfate) 1 mg Q4H PRN IVP PAIN 4-10 08/24/18 15:00 08/28/18 18:53 Ondansetron HCl (Zofran) 4 mg Q6H PRN IVP Nausea & Vomiting 08/24/18 14:30 09/20/18 14:29 Polyethylene Glycol (Miralax) 17 gm HSPRN PRN ORAL Constipation 08/24/18 21:00 09/21/18 20:59 Risperidone (RisperDAL) 0.5 mg Q6H PRN ORAL agitation 08/24/18 14:30 09/21/18 14:29 Vancomycin HCl (Vanco rx to dose) 1 ea DAILY PRN MISC Per rx protocol 08/24/18 14:30 09/23/18 14:29 Vancomycin/Sodium Chloride 250 ml @ 166.667 mls/hr Q24H IVPB 08/24/18 15:00 08/27/18 14:59 08/24/18 14:47 Zolpidem Tartrate (Ambien) 5 mg HSPRN PRN ORAL Insomnia 08/24/18 21:00 08/29/18 20:59 08/25/18 01:26 Item Value Date Time Bedside Blood Glucose 129 mg/dl H 08/25/18 0700 Bedside Blood Glucose 129 mg/dl H 08/25/18 0630 Bedside Blood Glucose 212 mg/dl H 08/24/18 2100 Bedside Blood Glucose 119 mg/dl 08/24/18 1721 Bedside Blood Glucose 256 mg/dl H 08/24/18 1254 Robert Yap MD Aug 25, 2018 10:30
--- NOTE | 2018-08-25 10:52 | Diagnostic Imaging Report ---
INDICATION: Fall TECHNIQUE: Multiple, contiguous 2.5 mm axial cuts of the brain are obtained from the posterior fossa to the cranial vault. Sagittal and coronal reformatted images provided. No IV contrast is administered. One or more of the following dose reduction techniques were used: automated exposure control, adjustment of the mA and/or kV according to patient size, use of iterative reconstruction technique. COMPARISON: CT dated 08/23/18 FINDINGS: No intracranial hemorrhage, abnormal intra- or extra-axial collections or parenchymal lesions are seen. There are involutional changes with prominence of the sulci, basal cisterns and ventricles. Scattered white matter hypoattenuations are present, likely from small vessel disease. 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 The reina-white differentiation is preserved. No evidence of mass effect, midline shift, or edema. The osseous structures are unremarkable. The visualized portions of the paranasal sinuses are clear. IMPRESSION: 1. No acute intracranial process. 2. Involutional changes with small vessel disease. 3. 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 CTDI: 70.38 mGy DLP: 1340.68 mGycm
[2018-08-25 12:00] VITALS: BP 137/88
--- NOTE | 2018-08-25 12:16 | Internal Med Progress Note ---
Subjective Date of Service: Aug 25, 2018 Physician Name Andrew Maravilla Attending Physician Jared Padgett MD Current Medications Medications (Trade) Dose Ordered Sig/Horace Route PRN Reason Start Time Stop Time Status Last Admin Dose Admin Acetaminophen (Tylenol) 650 mg Q4H PRN ORAL T>100.5 08/24/18 15:00 09/20/18 18:52 08/25/18 08:41 Al Hydroxide/Mg Hydroxide (Mylanta II) 30 ml Q6H PRN ORAL dyspepsia 08/24/18 14:30 09/20/18 14:29 Ceftriaxone Sodium 1 gm/ Dextrose 55 ml @ 110 mls/hr DAILY IVPB 08/25/18 09:00 08/29/18 13:14 08/25/18 08:39 Dextrose (Dextrose 50%) 25 ml Q30M PRN IV Hypoglycemia 08/24/18 14:30 09/20/18 18:52 Dextrose (Dextrose 50%) 50 ml Q30M PRN IV Hypoglycemia 08/24/18 14:15 09/20/18 13:13 Dextrose/ Electrolytes 1,000 ml @ 75 mls/hr [id number] IV 08/24/18 14:15 09/22/18 19:59 08/25/18 03:35 Heparin Sodium (Porcine) (Heparin 5000 units/ml) 5,000 units EVERY 12 HOURS SUBQ 08/24/18 21:00 09/22/18 20:59 08/25/18 08:52 Insulin Aspart (NovoLOG) BEFORE MEALS AND HS SUBQ 08/24/18 16:30 09/23/18 06:29 08/25/18 11:19 Lorazepam (Ativan 2mg/ml 1ml) 0.5 mg Q4H PRN IV For Anxiety 08/24/18 15:00 08/28/18 18:53 08/25/18 08:41 Metoclopramide HCl (Reglan) 10 mg Q6H PRN IVP Nausea & Vomiting 08/24/18 14:30 09/22/18 14:29 Morphine Sulfate (Morphine Sulfate) 1 mg Q4H PRN IVP PAIN 4-10 08/24/18 15:00 08/28/18 18:53 Ondansetron HCl (Zofran) 4 mg Q6H PRN IVP Nausea & Vomiting 08/24/18 14:30 09/20/18 14:29 Polyethylene Glycol (Miralax) 17 gm HSPRN PRN ORAL Constipation 08/24/18 21:00 09/21/18 20:59 Potassium Chloride (K-Dur) 40 meq ONCE ORAL 08/25/18 11:45 08/25/18 12:45 08/25/18 11:50 Risperidone (RisperDAL) 0.5 mg Q6H PRN ORAL agitation 08/24/18 14:30 09/21/18 14:29 Vancomycin HCl (Vanco rx to dose) 1 ea DAILY PRN MISC Per rx protocol 08/24/18 14:30 09/23/18 14:29 Vancomycin/Sodium Chloride 250 ml @ 166.667 mls/hr Q24H IVPB 08/24/18 15:00 08/27/18 14:59 08/24/18 14:47 Zolpidem Tartrate (Ambien) 5 mg HSPRN PRN ORAL Insomnia 08/24/18 21:00 08/29/18 20:59 08/25/18 01:26 Allergies: Coded Allergies: No Known Allergies (Verified , 01/17/08) ROS Limited/Unobtainable: No Constitutional: Reports: no symptoms HEENT: Reports: no symptoms Cardiovascular: Reports: no symptoms Respiratory: Reports: no symptoms Gastrointestinal/Abdominal: Reports: no symptoms Genitourinary: Reports: no symptoms Neurologic/Psychiatric: Reports: no symptoms Subjective 52 YO M admitted with altered mental status. Now hypoglycemia and sepsis. Cover for Declan Jalloh-Dr Padgett. Objective Last Vital Signs Date Time Temp Pulse Resp B/P (MAP) Pulse Ox O2 Delivery O2 Flow Rate FiO2 08/25/18 12:00 97.9 100 20 137/88 (104) 100 97.9 08/25/18 09:00 Room Air Laboratory Tests Test 08/25/18 06:40 White Blood Count 7.9 K/UL (4.8-10.8) Red Blood Count 4.00 M/UL (4.70-6.10) L Hemoglobin 12.5 G/DL (14.2-18.0) L Hematocrit 35.7 % (42.0-52.0) L Mean Corpuscular Volume 89 FL (80-99) Mean Corpuscular Hemoglobin 31.1 PG (27.0-31.0) H Mean Corpuscular Hemoglobin Concent 34.9 G/DL (32.0-36.0) Red Cell Distribution Width 12.2 % (11.6-14.8) Platelet Count 343 K/UL (150-450) Mean Platelet Volume 4.7 FL (6.5-10.1) L Neutrophils (%) (Auto) 75.2 % (45.0-75.0) H Lymphocytes (%) (Auto) 19.4 % (20.0-45.0) L Monocytes (%) (Auto) 4.9 % (1.0-10.0) Eosinophils (%) (Auto) 0.3 % (0.0-3.0) Basophils (%) (Auto) 0.3 % (0.0-2.0) Sodium Level 141 MMOL/L (136-145) Potassium Level 3.3 MMOL/L (3.5-5.1) L Chloride Level 104 MMOL/L (98-107) Carbon Dioxide Level 30 MMOL/L (21-32) Anion Gap 7 mmol/L (5-15) Blood Urea Nitrogen 8 mg/dL (7-18) Creatinine 0.5 MG/DL (0.55-1.30) L Estimat Glomerular Filtration Rate > 60 mL/min (>60) Glucose Level 110 MG/DL (74-106) H Calcium Level 9.1 MG/DL (8.5-10.1) Phosphorus Level 2.4 MG/DL (2.5-4.9) L Magnesium Level 1.8 MG/DL (1.8-2.4) Total Bilirubin 0.5 MG/DL (0.2-1.0) Aspartate Amino Transf (AST/SGOT) 41 U/L (15-37) H Alanine Aminotransferase (ALT/SGPT) 37 U/L (12-78) Alkaline Phosphatase 95 U/L (46-116) Total Protein 7.2 G/DL (6.4-8.2) Albumin 3.0 G/DL (3.4-5.0) L Globulin 4.2 g/dL Albumin/Globulin Ratio 0.7 (1.0-2.7) L Microbiology Date/Time Source Procedure Growth Status 08/23/18 11:20 Blood Blood Culture - Preliminary NO GROWTH AFTER 24 HOURS Resulted 08/23/18 11:20 Blood Blood Culture - Preliminary NO GROWTH AFTER 24 HOURS Resulted Intake and Output 08/24/18 08/25/18 19:00 07:00 Intake Total 800 ml Output Total 1300 ml Balance -500 ml Intake Oral 200 ml Other 600 ml Output Urine Total 1300 ml # Bowel Movements 4 Objective PHYSICAL EXAMINATION: GENERAL: The patient is thin-appearing male, who is quite agitated. HEENT: Eyes, pupils equal and responsive to light and accommodation. Extraocular movements are intact. NECK: Supple without lymphadenopathy. CHEST: Lungs are clear to auscultation bilaterally without wheezes or rales. CARDIOVASCULAR: Regular rhythm and rate. S1, S2 are normal without murmurs, rubs, or gallops. ABDOMEN: Soft, nontender, and nondistended. Positive bowel sounds. No evidence of hepatosplenomegaly. Currently, no rebound or guarding noted. EXTREMITIES: Negative for clubbing, cyanosis, or edema. RECTAL: Refused. GENITAL: Refused. NEUROLOGIC: The patient is quite agitated. Cranial nerves II through XII are grossly intact without focal deficits. Motor strength is 5/5 bilaterally intact. Deep tendon reflexes are 2+, plantar. Assessment/Plan Problem List: (1) Leukocytosis Assessment & Plan: Resolved on antibiotic (2) Diabetes mellitus type II, uncontrolled Assessment & Plan: Better controlled. See endocrinology consult. (3) Diabetes mellitus Assessment & Plan: ?exogenous insulin vs sepsis? Await endocrinology consult (4) Hypoglycemia Assessment & Plan: FSBG more stable. D/C D10. Start D5NS (5) Sepsis Assessment & Plan: Enterococcus. Continue vanco per ID Status: progressing Andrew Maravilla MD Aug 25, 2018 12:16
--- NOTE | 2018-08-25 12:18 | Cardiology Report ---
APPROVED REPORT EKG Measurement Heart [id number] Normal sinus rhythm Early repolarization Normal ECG
[2018-08-25] MEDS: Vancomycin 750mg/NS 250ml 250 ML IVPB SCH (14:34)
[2018-08-25 16:00] VITALS: BP 154/83
[2018-08-25 20:03] VITALS: BP 154/86
[2018-08-26 00:32] VITALS: BP 152/81
[2018-08-26 04:06] VITALS: BP 149/79
[2018-08-26] MEDS: NovoLOG Insulin Flexpen SUBQ SCH ×4 (06:03→20:56)
[2018-08-26 08:00] VITALS: BP 117/71
[2018-08-26] MEDS: cefTRIAXone 1 GM in D5W 55 ML IVPB SCH (08:14)
[2018-08-26 08:18] LABS: BASOPHILS % (AUTO) 0.7 % (0.0-2.0); EOSINOPHILS % (AUTO) 1.1 % (0.0-3.0); HEMATOCRIT 30.7 % (42.0-52.0); LYMPHOCYTES % (AUTO) 27.9 % (20.0-45.0); MEAN CORPUSCULAR VOLUME 87 FL (80-99); MONOCYTES % (AUTO) 7.6 % (1.0-10.0); NEUTROPHILS % (AUTO) 62.6 % (45.0-75.0); PLATELET COUNT 285 K/UL (150-450); RED BLOOD COUNT 3.53 M/UL (4.70-6.10); WHITE BLOOD COUNT 6.2 K/UL (4.8-10.8)
[2018-08-26] MEDS: Heparin 5000 units/ml inj SUBQ SCH ×2 (08:22→20:48)
[2018-08-26 08:41] LABS: ANION GAP 5 mmol/L (5-15); BLOOD UREA NITROGEN 8 mg/dL (7-18); CALCIUM 8.4 MG/DL (8.5-10.1); CARBON DIOXIDE 28 MMOL/L (21-32); CHLORIDE 105 MMOL/L (98-107); CREATININE 0.5 MG/DL (0.55-1.30); POTASSIUM 3.9 MMOL/L (3.5-5.1); SODIUM 138 MMOL/L (136-145)
--- NOTE | 2018-08-26 10:54 | Cardiology Progress Note ---
Assessment/Plan Status: stable Assessment/Plan Assessment/Plan 1) Leukocytosis Assessment & Plan: Resolved on antibiotic (2) Diabetes mellitus type II, uncontrolled Assessment & Plan: Better controlled. See endocrinology consult. (3) Diabetes mellitus Assessment & Plan: ?exogenous insulin vs sepsis? Await endocrinology consult (4) Hypoglycemia Assessment & Plan: FSBG more stable. D/C D10. Start D5NS (5) Sepsis Plan 1. Altered mental status likely due to recurrent hypoglycemia. Resolved. Alert now. Echocardiogram showed Nl EF 55% 2. Recurrent hypoglycemia. Further evaluation by Endocrinology 3. sepsis with high WBC. On Abx 4. Outpatient stress test Subjective Cardiovascular: Reports: no symptoms Respiratory: Reports: no symptoms Gastrointestinal/Abdominal: Reports: no symptoms Genitourinary: Reports: no symptoms Subjective Coverage for TOLUIE No complains of pain at this time, no acute events, vitals stable, no CP/SOB Objective Last 24 Hour Vital Signs Date Time Temp Pulse Resp B/P (MAP) Pulse Ox O2 Delivery O2 Flow Rate FiO2 08/26/18 09:00 Room Air 08/26/18 08:00 102 08/26/18 08:00 98.1 101 17 117/71 (86) 94 98.1 08/26/18 04:06 97.7 89 20 149/79 (102) 98 97.7 08/26/18 03:35 100 08/26/18 00:32 97.6 94 19 152/81 (104) 99 97.6 08/25/18 23:27 95 08/25/18 21:00 Room Air 08/25/18 20:08 98 08/25/18 20:03 97.5 97 18 154/86 (108) 99 97.5 08/25/18 16:00 97.3 100 19 154/83 (106) 100 97.3 08/25/18 16:00 82 08/25/18 12:00 97.9 100 20 137/88 (104) 100 97.9 08/25/18 12:00 94 General Appearance: no apparent distress, alert EENT: PERRL/EOMI, normal ENT inspection, TMs normal, pharynx normal Neck: non-tender, supple, normal inspection, no JVD Rhythm: NSR Cardiovascular: normal peripheral pulses, normal rate, regular rhythm Respiratory/Chest: chest wall non-tender, lungs clear Abdomen: normal bowel sounds, non tender, soft, no organomegaly Extremities: normal range of motion, non-tender Neurologic: psychiatric attendant II-XII grossly normal, no motor/sensory deficits Intake and Output 08/25/18 08/26/18 19:00 07:00 Intake Total 670 ml 240 ml Balance 670 ml 240 ml Intake Oral 670 ml 240 ml # Voids 5 4 # Bowel Movements 1 Laboratory Tests Test 08/26/18 06:00 White Blood Count 6.2 K/UL (4.8-10.8) Red Blood Count 3.53 M/UL (4.70-6.10) L Hemoglobin 11.0 G/DL (14.2-18.0) L Hematocrit 30.7 % (42.0-52.0) L Mean Corpuscular Volume 87 FL (80-99) Mean Corpuscular Hemoglobin 31.1 PG (27.0-31.0) H Mean Corpuscular Hemoglobin Concent 35.8 G/DL (32.0-36.0) Red Cell Distribution Width 12.0 % (11.6-14.8) Platelet Count 285 K/UL (150-450) Mean Platelet Volume 4.3 FL (6.5-10.1) L Neutrophils (%) (Auto) 62.6 % (45.0-75.0) Lymphocytes (%) (Auto) 27.9 % (20.0-45.0) Monocytes (%) (Auto) 7.6 % (1.0-10.0) Eosinophils (%) (Auto) 1.1 % (0.0-3.0) Basophils (%) (Auto) 0.7 % (0.0-2.0) Sodium Level 138 MMOL/L (136-145) Potassium Level 3.9 MMOL/L (3.5-5.1) Chloride Level 105 MMOL/L (98-107) Carbon Dioxide Level 28 MMOL/L (21-32) Anion Gap 5 mmol/L (5-15) Blood Urea Nitrogen 8 mg/dL (7-18) Creatinine 0.5 MG/DL (0.55-1.30) L Estimat Glomerular Filtration Rate > 60 mL/min (>60) Glucose Level 201 MG/DL (74-106) H Calcium Level 8.4 MG/DL (8.5-10.1) L Microbiology Date/Time Source Procedure Growth Status 08/24/18 09:25 Blood Blood Culture - Preliminary NO GROWTH AFTER 24 HOURS Resulted 08/24/18 09:05 Blood Blood Culture - Preliminary NO GROWTH AFTER 24 HOURS Resulted 08/23/18 11:20 Blood Blood Culture - Preliminary NO GROWTH AFTER 48 HOURS Resulted 08/23/18 11:20 Blood Blood Culture - Preliminary NO GROWTH AFTER 48 HOURS Resulted Rohith Mishra MD Aug 26, 2018 10:54
--- NOTE | 2018-08-26 11:05 | General Progress Note ---
Assessment/Plan Problem List: (1) Failure to thrive Qualifiers: Qualified Codes: R62.7 - Adult failure to thrive (2) Diabetes mellitus ICD Codes: E11.9 - Type 2 diabetes mellitus without complications SNOMED: 43116181 (3) Acute encephalopathy ICD Codes: G93.40 - Encephalopathy, unspecified SNOMED: 82106796, 948512064 Status: stable, progressing Assessment/Plan seroquel prn provided ro dc the sitter Subjective Date patient seen: Aug 26, 2018 Neurologic/Psychiatric: Reports: anxiety, depressed Allergies: Coded Allergies: No Known Allergies (Verified , 01/17/08) Subjective the pt fell yesterday and was assigned a sitter Objective Last 24 Hour Vital Signs Date Time Temp Pulse Resp B/P (MAP) Pulse Ox O2 Delivery O2 Flow Rate FiO2 08/26/18 09:00 Room Air 08/26/18 08:00 102 08/26/18 08:00 98.1 101 17 117/71 (86) 94 98.1 08/26/18 04:06 97.7 89 20 149/79 (102) 98 97.7 08/26/18 03:35 100 08/26/18 00:32 97.6 94 19 152/81 (104) 99 97.6 08/25/18 23:27 95 08/25/18 21:00 Room Air 08/25/18 20:08 98 08/25/18 20:03 97.5 97 18 154/86 (108) 99 97.5 08/25/18 16:00 97.3 100 19 154/83 (106) 100 97.3 08/25/18 16:00 82 08/25/18 12:00 97.9 100 20 137/88 (104) 100 97.9 08/25/18 12:00 94 Intake and Output 08/25/18 08/26/18 19:00 07:00 Intake Total 670 ml 240 ml Balance 670 ml 240 ml Intake Oral 670 ml 240 ml # Voids 5 4 # Bowel Movements 1 Laboratory Tests 08/26/18 06:00: White Blood Count 6.2, Red Blood Count 3.53L, Hemoglobin 11.0L, Hematocrit 30.7L , Mean Corpuscular Volume 87, Mean Corpuscular Hemoglobin 31.1H, Mean Corpuscular Hemoglobin Concent 35.8, Red Cell Distribution Width 12.0, Platelet Count 285, Mean Platelet Volume 4.3L, Neutrophils (%) (Auto) 62.6, Lymphocytes ( %) (Auto) 27.9, Monocytes (%) (Auto) 7.6, Eosinophils (%) (Auto) 1.1, Basophils (%) (Auto) 0.7, Sodium Level 138, Potassium Level 3.9, Chloride Level 105, Carbon Dioxide Level 28, Anion Gap 5, Blood Urea Nitrogen 8, Creatinine 0.5L, Estimat Glomerular Filtration Rate > 60, Glucose Level 201H, Calcium Level 8.4L Height (Feet): 5 Height (Inches): 3.00 Weight (Pounds): 89 General Appearance: no apparent distress, alert Neurologic: depressed affect Aric Peck MD Aug 26, 2018 11:05
--- NOTE | 2018-08-26 11:16 | Cardiology Report ---
APPROVED REPORT EXAM: Two-dimensional and M-mode echocardiogram with Doppler and color Doppler. INDICATION Syncope M-Mode DIMENSIONS IVSd1.3 (0.7-1.1cm)Left Atrium (MM)2.8 (1.6-4.0cm) LVDd3.5 (3.5-5.6cm)Aortic Root2.9 (2.0-3.7cm) PWd0.8 (0.7-1.1cm)Aortic Cusp Exc.1.9 (1.5-2.0cm) LVDs2.5 (2.5-4.0cm) PWs1.4 cm Technically difficult study due to poor acoustic windows. Study quality precludes accurate assessment of regional wall motion. Normal left ventricular chamber size, systolic function and wall motion. Left ventricular ejection fraction estimated to be 55 %. Mild left ventricular hypertrophy. Anterior Echo-free space, may be due to pericardial fat or effusion. All other cardiac chamber sizes are within normal limits. Mild focal aortic valve sclerosis with adequate cusp excursion. Mildly thickened mitral valve leaflets with normal excursion. Mild mitral annulus and aortic root calcification. Pulmonic valve not visualized. Normal tricuspid valve structure. IVC is normal in size with physiological collapse. A color flow and spectral Doppler study was performed and revealed: No aortic insufficiency. Trace mitral regurgitation. Mitral diastolic velocities suggest mild left ventricular diastolic dysfunction (Grade I). No tricuspid regurgitation. Tricuspid systolic velocities suggests peak right ventricular systolic pressure of 11 mmHg.
--- NOTE | 2018-08-26 11:39 | Infectious Diseases Prog Note ---
Assessment/Plan Assessment/Plan Assessment: Sepsis, improving Hypothermia, SP Leukocytosis- SP -u/a neg -CXR: n o acute disease Enterococcus bacteremia- low grade- ?source- -r/o intrabdominal -2d Echo: no vegetations -08/21 Bcx 1/4 enterococcus ; 08/23, 13 NTD SEvere hypoglycemia- ?extra insulin administration vs r/o insulinoma; improving DM Plan: -D/c Ceftriaxone #6 and IV Vancomycin #5 and start IV Ampicillin for enterococcal bacteremia (abx d#03/25) -CT abd/p w/ to eval for source of bacteremia -f/u cx -Monitor CBC/CMP, temperatures -f/u Repeat Bcx x2 -Endocrine f/u Will continue to follow along with you. Subjective Allergies: Coded Allergies: No Known Allergies (Verified , 01/17/08) Subjective afebrile no leukocytosis repeat Bcx NTD Objective Vital Signs Last 24 Hour Vital Signs Date Time Temp Pulse Resp B/P (MAP) Pulse Ox O2 Delivery O2 Flow Rate FiO2 08/26/18 09:00 Room Air 08/26/18 08:00 102 08/26/18 08:00 98.1 101 17 117/71 (86) 94 98.1 08/26/18 04:06 97.7 89 20 149/79 (102) 98 97.7 08/26/18 03:35 100 08/26/18 00:32 97.6 94 19 152/81 (104) 99 97.6 08/25/18 23:27 95 08/25/18 21:00 Room Air 08/25/18 20:08 98 08/25/18 20:03 97.5 97 18 154/86 (108) 99 97.5 08/25/18 16:00 97.3 100 19 154/83 (106) 100 97.3 08/25/18 16:00 82 08/25/18 12:00 97.9 100 20 137/88 (104) 100 97.9 08/25/18 12:00 94 Height (Feet): 5 Height (Inches): 3.00 Weight (Pounds): 89 Objective General Appearance: no apparent distress, alert, non-toxic, cachetic HEENT: normocephalic, atraumatic, bilateral eye PERRL, normal pharynx Neck: full range of motion, supple/symm/no masses Respiratory: chest non-tender, lungs clear, normal breath sounds, speaking full sentences Cardiovascular: regular rate, rhythm, no edema Gastrointestinal: normal bowel sounds, non tender, soft, non-distended, no guarding, no rebound Rectal: deferred Genitourinary: normal inspection, no CVA tenderness Musculoskeletal: back normal, gait/station normal, normal range of motion, non- tender Skin: normal color, no rash, warm/dry, well hydrated Lymphatic: no adenopathy Microbiology Date/Time Source Procedure Growth Status 08/24/18 09:25 Blood Blood Culture - Preliminary NO GROWTH AFTER 24 HOURS Resulted 08/24/18 09:05 Blood Blood Culture - Preliminary NO GROWTH AFTER 24 HOURS Resulted Laboratory Tests Test 08/26/18 06:00 White Blood Count 6.2 K/UL (4.8-10.8) Red Blood Count 3.53 M/UL (4.70-6.10) L Hemoglobin 11.0 G/DL (14.2-18.0) L Hematocrit 30.7 % (42.0-52.0) L Mean Corpuscular Volume 87 FL (80-99) Mean Corpuscular Hemoglobin 31.1 PG (27.0-31.0) H Mean Corpuscular Hemoglobin Concent 35.8 G/DL (32.0-36.0) Red Cell Distribution Width 12.0 % (11.6-14.8) Platelet Count 285 K/UL (150-450) Mean Platelet Volume 4.3 FL (6.5-10.1) L Neutrophils (%) (Auto) 62.6 % (45.0-75.0) Lymphocytes (%) (Auto) 27.9 % (20.0-45.0) Monocytes (%) (Auto) 7.6 % (1.0-10.0) Eosinophils (%) (Auto) 1.1 % (0.0-3.0) Basophils (%) (Auto) 0.7 % (0.0-2.0) Sodium Level 138 MMOL/L (136-145) Potassium Level 3.9 MMOL/L (3.5-5.1) Chloride Level 105 MMOL/L (98-107) Carbon Dioxide Level 28 MMOL/L (21-32) Anion Gap 5 mmol/L (5-15) Blood Urea Nitrogen 8 mg/dL (7-18) Creatinine 0.5 MG/DL (0.55-1.30) L Estimat Glomerular Filtration Rate > 60 mL/min (>60) Glucose Level 201 MG/DL (74-106) H Calcium Level 8.4 MG/DL (8.5-10.1) L Current Medications Medications (Trade) Dose Ordered Sig/Horace Route PRN Reason Start Time Stop Time Status Last Admin Dose Admin Acetaminophen (Tylenol) 650 mg Q4H PRN ORAL T>100.5 08/24/18 15:00 09/20/18 18:52 08/25/18 08:41 Al Hydroxide/Mg Hydroxide (Mylanta II) 30 ml Q6H PRN ORAL dyspepsia 08/24/18 14:30 09/20/18 14:29 Ceftriaxone Sodium 1 gm/ Dextrose 55 ml @ 110 mls/hr DAILY IVPB 08/25/18 09:00 08/29/18 13:14 08/26/18 08:14 Dextrose (Dextrose 50%) 25 ml Q30M PRN IV Hypoglycemia 08/24/18 14:30 09/20/18 18:52 Dextrose (Dextrose 50%) 50 ml Q30M PRN IV Hypoglycemia 08/24/18 14:15 09/20/18 13:13 Dextrose/ Electrolytes 1,000 ml @ 75 mls/hr [id number] IV 08/24/18 14:15 09/22/18 19:59 08/26/18 08:17 Heparin Sodium (Porcine) (Heparin 5000 units/ml) 5,000 units EVERY 12 HOURS SUBQ 08/24/18 21:00 09/22/18 20:59 08/26/18 08:22 Insulin Aspart (NovoLOG) BEFORE MEALS AND HS SUBQ 08/24/18 16:30 09/23/18 06:29 08/26/18 11:13 Lorazepam (Ativan 2mg/ml 1ml) 0.5 mg Q4H PRN IV For Anxiety 08/24/18 15:00 08/28/18 18:53 08/25/18 08:41 Metoclopramide HCl (Reglan) 10 mg Q6H PRN IVP Nausea & Vomiting 08/24/18 14:30 09/22/18 14:29 Morphine Sulfate (Morphine Sulfate) 1 mg Q4H PRN IVP PAIN 4-10 08/24/18 15:00 08/28/18 18:53 Ondansetron HCl (Zofran) 4 mg Q6H PRN IVP Nausea & Vomiting 08/24/18 14:30 09/20/18 14:29 Polyethylene Glycol (Miralax) 17 gm HSPRN PRN ORAL Constipation 08/24/18 21:00 09/21/18 20:59 Risperidone (RisperDAL) 0.5 mg Q6H PRN ORAL agitation 08/24/18 14:30 09/21/18 14:29 Vancomycin HCl (Vanco rx to dose) 1 ea DAILY PRN MISC Per rx protocol 08/24/18 14:30 09/23/18 14:29 Vancomycin/Sodium Chloride 250 ml @ 166.667 mls/hr Q24H IVPB 08/24/18 15:00 08/27/18 14:59 08/25/18 14:34 Zolpidem Tartrate (Ambien) 5 mg HSPRN PRN ORAL Insomnia 08/24/18 21:00 08/29/18 20:59 08/25/18 01:26 Kellie Welch M.D. Aug 26, 2018 11:39
[2018-08-26] MEDS ORDERED: Isovue-300 100ml vial INJ PRN ×2 (11:45→18:30)
--- NOTE | 2018-08-26 11:55 | Pulmonology Progress Note ---
Assessment/Plan Problems: (1) Sepsis (2) Bacteremia (3) Acute encephalopathy (4) Hypoglycemia (5) Failure to thrive (6) Diabetes mellitus (7) Severe protein-calorie malnutrition Assessment/Plan mental status improving BS more stable CT of abdomen ordered to rule out GI pathology as source of bacteremia -D/c Ceftriaxone #6 and IV Vancomycin #5 and start IV Ampicillin for enterococcal bacteremia (abx d#/) -CT abd/p w/ to eval for source of bacteremia med/surg symptomatic treatment pt can potentially go home if CT of abdomen is negative. Subjective ROS Limited/Unobtainable: No Constitutional: Reports: no symptoms HEENT: Repors: no symptoms Respiratory: Reports: no symptoms Allergies: Coded Allergies: No Known Allergies (Verified , 01/17/08) Objective Last 24 Hour Vital Signs Date Time Temp Pulse Resp B/P (MAP) Pulse Ox O2 Delivery O2 Flow Rate FiO2 08/26/18 09:00 Room Air 08/26/18 08:00 102 08/26/18 08:00 98.1 101 17 117/71 (86) 94 98.1 08/26/18 04:06 97.7 89 20 149/79 (102) 98 97.7 08/26/18 03:35 100 08/26/18 00:32 97.6 94 19 152/81 (104) 99 97.6 08/25/18 23:27 95 08/25/18 21:00 Room Air 08/25/18 20:08 98 08/25/18 20:03 97.5 97 18 154/86 (108) 99 97.5 08/25/18 16:00 97.3 100 19 154/83 (106) 100 97.3 08/25/18 16:00 82 08/25/18 12:00 97.9 100 20 137/88 (104) 100 97.9 08/25/18 12:00 94 Intake and Output 08/25/18 08/26/18 19:00 07:00 Intake Total 670 ml 240 ml Balance 670 ml 240 ml Intake Oral 670 ml 240 ml # Voids 5 4 # Bowel Movements 1 General Appearance: cachetic HEENT: normocephalic, atraumatic Respiratory/Chest: chest wall non-tender, lungs clear Cardiovascular: normal peripheral pulses, normal rate Abdomen: normal bowel sounds, no organomegaly Genitourinary: normal external genitalia Extremities: no clubbing Skin: no rash Microbiology Date/Time Source Procedure Growth Status 08/24/18 09:25 Blood Blood Culture - Preliminary NO GROWTH AFTER 24 HOURS Resulted 08/24/18 09:05 Blood Blood Culture - Preliminary NO GROWTH AFTER 24 HOURS Resulted Laboratory Tests 08/26/18 06:00: White Blood Count 6.2, Red Blood Count 3.53L, Hemoglobin 11.0L, Hematocrit 30.7L , Mean Corpuscular Volume 87, Mean Corpuscular Hemoglobin 31.1H, Mean Corpuscular Hemoglobin Concent 35.8, Red Cell Distribution Width 12.0, Platelet Count 285, Mean Platelet Volume 4.3L, Neutrophils (%) (Auto) 62.6, Lymphocytes ( %) (Auto) 27.9, Monocytes (%) (Auto) 7.6, Eosinophils (%) (Auto) 1.1, Basophils (%) (Auto) 0.7, Sodium Level 138, Potassium Level 3.9, Chloride Level 105, Carbon Dioxide Level 28, Anion Gap 5, Blood Urea Nitrogen 8, Creatinine 0.5L, Estimat Glomerular Filtration Rate > 60, Glucose Level 201H, Calcium Level 8.4L Current Medications Medications (Trade) Dose Ordered Sig/Horace Route PRN Reason Start Time Stop Time Status Last Admin Dose Admin Acetaminophen (Tylenol) 650 mg Q4H PRN ORAL T>100.5 08/24/18 15:00 09/20/18 18:52 08/25/18 08:41 Al Hydroxide/Mg Hydroxide (Mylanta II) 30 ml Q6H PRN ORAL dyspepsia 08/24/18 14:30 09/20/18 14:29 Ampicillin 2 gm/ Sodium Chloride 110 ml @ 220 mls/hr EVERY 4 HOURS IVPB 08/26/18 13:00 09/02/18 12:59 Barium Sulfate (Readi-Cat 2) 450 ml NOW PRN ORAL Radiology Procedure 08/26/18 11:45 08/28/18 11:33 Dextrose (Dextrose 50%) 25 ml Q30M PRN IV Hypoglycemia 08/24/18 14:30 09/20/18 18:52 Dextrose (Dextrose 50%) 50 ml Q30M PRN IV Hypoglycemia 08/24/18 14:15 09/20/18 13:13 Dextrose/ Electrolytes 1,000 ml @ 75 mls/hr [id number] IV 08/24/18 14:15 09/22/18 19:59 08/26/18 08:17 Heparin Sodium (Porcine) (Heparin 5000 units/ml) 5,000 units EVERY 12 HOURS SUBQ 08/24/18 21:00 09/22/18 20:59 08/26/18 08:22 Insulin Aspart (NovoLOG) BEFORE MEALS AND HS SUBQ 08/24/18 16:30 09/23/18 06:29 08/26/18 11:13 Iopamidol (Isovue-300 100ml) 100 ml NOW PRN INJ Radiology Procedure 08/26/18 11:45 08/27/18 11:44 Lorazepam (Ativan 2mg/ml 1ml) 0.5 mg Q4H PRN IV For Anxiety 08/24/18 15:00 08/28/18 18:53 08/25/18 08:41 Metoclopramide HCl (Reglan) 10 mg Q6H PRN IVP Nausea & Vomiting 08/24/18 14:30 09/22/18 14:29 Morphine Sulfate (Morphine Sulfate) 1 mg Q4H PRN IVP PAIN 4-10 08/24/18 15:00 08/28/18 18:53 Ondansetron HCl (Zofran) 4 mg Q6H PRN IVP Nausea & Vomiting 08/24/18 14:30 09/20/18 14:29 Polyethylene Glycol (Miralax) 17 gm HSPRN PRN ORAL Constipation 08/24/18 21:00 09/21/18 20:59 Risperidone (RisperDAL) 0.5 mg Q6H PRN ORAL agitation 08/24/18 14:30 09/21/18 14:29 Zolpidem Tartrate (Ambien) 5 mg HSPRN PRN ORAL Insomnia 08/24/18 21:00 08/29/18 20:59 08/25/18 01:26 Vic Kaminski MD Aug 26, 2018 11:55
[2018-08-26 12:00] VITALS: BP 148/48
--- NOTE | 2018-08-26 12:16 | Physician Query ---
--------- THIS DOCUMENT IS A PERMANENT PART OF THE MEDICAL RECORD --------- PLEASE COMPLETE DOCUMENT BEFORE SIGNING Dear Dr. Kaminski Date: 2017 [employer] Department Supervisor/CDS Name: Ayesha Van St[employer] Department Supervisor/CDS Phone No.: [phone] Exercise your independent professional judgment when responding to the query. Questions asked do not imply a particular answer is desired or expected. We greatly appreciate your clarification on this issue. CLINICAL DOCUMENTATION STATES: Patient is admitted with Sepsis and encephalopathy. CLINICAL FINDINGS SHOW: BMI: 15.8, Lymphocytes: 16.3 -----> 27.9, Albumin: 2.6 ------> 3.8 Can you please select the most appropriate option for the above findings: a. Severity b. Type [] Mild [] Protein Malnutrition [] Moderate [] Protein/Calorie Malnutrition [xx] Severe Criteria: Mild to Moderate Malnutrition >Serum albumin 2.8 to 3.4 g/dL or Pre-albumin 5 to 7 mg/dl (3) >Inadequate nutritional intake (1, 2, 3, 4) >NPO > 5 days >Weight loss: 5% in 1 month or 7.5% in 3 months or 10% in 6 months (1,3,4) >BMI 16 to 18.4 or Weight <90 of ideal body weight (1,2,3,4) Criteria: Moderate to Severe Malnutrition >Serum Albumin < 2.8 g/dL (1,2) >Lymphocytes < 1500/uL (2) >Inadequate nutritional intake3 , high stress e.g. major trauma, sepsis, pancreatitis, mackey etc. >Decubitus ulcers (1,2) , skin breakdown(2), easy hair pluckability >Weight <80% standard for height (2) >Triceps skin fold <3 mm2 >Mid-arm muscle circumference <25 cm2 >Creatinine-height index <60% standard (2) [] Hypoalbuminemia [xx] Emancipated w/ Malnutrition [] Kwashiorkor (rare in [place]) [] Marasmus [] Other [] Unable to determine [] Not Applicable Condition Present on Admission: [x] Yes [] No [ ] Unable to determine Please also document in your Progress Notes and/or Discharge Summary and indicate if the condition was present on admission. M.D. References: 1 [facility] [place] Board. (2007). Nutritional support strategy for protein -energy malnutrition in the elderly. Clinical Practice Guidelines. 2 Rolando Mccain (2011). Malnutrition and nutritional assessment. In Erik Snyder (18th Ed.) Miah's Principle of Internal Medicine ([id number]) [place], [place]: [facility] 3 Taylor Floyd. (2001). Clinical Nutrition: Protein-energy malnutrition in the inpatient. [place] [employer] Journal, vol. 165 no. 10 (pp. 1345- 134 ). 4 Sammie Harrison (2012). Geriactric Nutrition: Nutritional Issues in Older Adults. [email or web address] [email or web address]
[2018-08-26] MEDS: Ampicillin 2 GM in NS 110 ML IVPB SCH ×3 (12:52→21:12)
--- NOTE | 2018-08-26 13:38 | General Progress Note ---
Assessment/Plan Problem List: (1) Hypoglycemia ICD Codes: E16.2 - Hypoglycemia, unspecified SNOMED: 730448540 (2) Sepsis ICD Codes: A41.9 - Sepsis, unspecified organism SNOMED: 13227095 Qualifiers: Qualified Codes: A41.9 - Sepsis, unspecified organism (3) Diabetes mellitus type II, uncontrolled ICD Codes: E11.65 - Type 2 diabetes mellitus with hyperglycemia SNOMED: 31707596, [id number] Assessment/Plan DC dextrose continue SSI no need for scheduled diabetic medications or basal insulin for now Subjective Allergies: Coded Allergies: No Known Allergies (Verified , 01/17/08) All Systems: reviewed and negative except above Subjective feeling better glucose values are elevated now Objective Last 24 Hour Vital Signs Date Time Temp Pulse Resp B/P (MAP) Pulse Ox O2 Delivery O2 Flow Rate FiO2 08/26/18 12:00 98.4 89 18 148/48 (81) 99 98.4 08/26/18 09:00 Room Air 08/26/18 08:00 102 08/26/18 08:00 98.1 101 17 117/71 (86) 94 98.1 08/26/18 04:06 97.7 89 20 149/79 (102) 98 97.7 08/26/18 03:35 100 08/26/18 00:32 97.6 94 19 152/81 (104) 99 97.6 08/25/18 23:27 95 08/25/18 21:00 Room Air 08/25/18 20:08 98 08/25/18 20:03 97.5 97 18 154/86 (108) 99 97.5 08/25/18 16:00 97.3 100 19 154/83 (106) 100 97.3 08/25/18 16:00 82 Intake and Output 08/25/18 08/26/18 19:00 07:00 Intake Total 670 ml 240 ml Balance 670 ml 240 ml Intake Oral 670 ml 240 ml # Voids 5 4 # Bowel Movements 1 Laboratory Tests 08/26/18 06:00: White Blood Count 6.2, Red Blood Count 3.53L, Hemoglobin 11.0L, Hematocrit 30.7L , Mean Corpuscular Volume 87, Mean Corpuscular Hemoglobin 31.1H, Mean Corpuscular Hemoglobin Concent 35.8, Red Cell Distribution Width 12.0, Platelet Count 285, Mean Platelet Volume 4.3L, Neutrophils (%) (Auto) 62.6, Lymphocytes ( %) (Auto) 27.9, Monocytes (%) (Auto) 7.6, Eosinophils (%) (Auto) 1.1, Basophils (%) (Auto) 0.7, Sodium Level 138, Potassium Level 3.9, Chloride Level 105, Carbon Dioxide Level 28, Anion Gap 5, Blood Urea Nitrogen 8, Creatinine 0.5L, Estimat Glomerular Filtration Rate > 60, Glucose Level 201H, Calcium Level 8.4L Height (Feet): 5 Height (Inches): 3.00 Weight (Pounds): 89 General Appearance: no apparent distress Neck: normal alignment Cardiovascular: normal rate Respiratory/Chest: lungs clear Abdomen: normal bowel sounds Pelvis: normal external exam Objective Current Medications Medications (Trade) Dose Ordered Sig/Horace Route PRN Reason Start Time Stop Time Status Last Admin Dose Admin Acetaminophen (Tylenol) 650 mg Q4H PRN ORAL T>100.5 08/24/18 15:00 09/20/18 18:52 08/25/18 08:41 Al Hydroxide/Mg Hydroxide (Mylanta II) 30 ml Q6H PRN ORAL dyspepsia 08/24/18 14:30 09/20/18 14:29 Ampicillin 2 gm/ Sodium Chloride 110 ml @ 220 mls/hr EVERY 4 HOURS IVPB 08/26/18 13:00 09/02/18 12:59 08/26/18 12:52 Barium Sulfate (Readi-Cat 2) 450 ml NOW PRN ORAL Radiology Procedure 08/26/18 11:45 08/28/18 11:33 Dextrose (Dextrose 50%) 25 ml Q30M PRN IV Hypoglycemia 08/24/18 14:30 09/20/18 18:52 Dextrose (Dextrose 50%) 50 ml Q30M PRN IV Hypoglycemia 08/24/18 14:15 09/20/18 13:13 Dextrose/ Electrolytes 1,000 ml @ 75 mls/hr [id number] IV 08/24/18 14:15 09/22/18 19:59 08/26/18 08:17 Heparin Sodium (Porcine) (Heparin 5000 units/ml) 5,000 units EVERY 12 HOURS SUBQ 08/24/18 21:00 09/22/18 20:59 08/26/18 08:22 Insulin Aspart (NovoLOG) BEFORE MEALS AND HS SUBQ 08/24/18 16:30 09/23/18 06:29 08/26/18 11:13 Iopamidol (Isovue-300 100ml) 100 ml NOW PRN INJ Radiology Procedure 08/26/18 11:45 08/27/18 11:44 Lorazepam (Ativan 2mg/ml 1ml) 0.5 mg Q4H PRN IV For Anxiety 08/24/18 15:00 08/28/18 18:53 08/25/18 08:41 Metoclopramide HCl (Reglan) 10 mg Q6H PRN IVP Nausea & Vomiting 08/24/18 14:30 09/22/18 14:29 Morphine Sulfate (Morphine Sulfate) 1 mg Q4H PRN IVP PAIN 4-10 08/24/18 15:00 08/28/18 18:53 Ondansetron HCl (Zofran) 4 mg Q6H PRN IVP Nausea & Vomiting 08/24/18 14:30 09/20/18 14:29 Polyethylene Glycol (Miralax) 17 gm HSPRN PRN ORAL Constipation 08/24/18 21:00 09/21/18 20:59 Risperidone (RisperDAL) 0.5 mg Q6H PRN ORAL agitation 08/24/18 14:30 09/21/18 14:29 Zolpidem Tartrate (Ambien) 5 mg HSPRN PRN ORAL Insomnia 08/24/18 21:00 08/29/18 20:59 08/25/18 01:26 Item Value Date Time Bedside Blood Glucose 295 mg/dl H 08/26/18 1308 Bedside Blood Glucose 225 mg/dl H 08/26/18 0603 Bedside Blood Glucose 249 mg/dl H 08/25/18 2136 Bedside Blood Glucose 174 mg/dl H 08/25/18 1630 Bedside Blood Glucose 187 mg/dl H 08/25/18 1130 Bedside Blood Glucose 129 mg/dl H 08/25/18 0700 Robert Yap MD Aug 26, 2018 13:38
--- NOTE | 2018-08-26 15:44 | Diagnostic Imaging Report ---
Indication: Abdominal pain Technique: Continuous helical transaxial imaging of the abdomen and pelvis was obtained from the lung bases to the pubic symphysis during intravenous contrast administration. Coronal 2-D reformats were also obtained. Study obtained in a Siemens sensation [address] Automatic Exposure Control was utilized. Total Dose length Product (DLP): 418.[address] Dose Index Volume (CTDIvol): 8.16 mGy Comparison: None Findings: The urinary bladder is moderately dilated. There is mild hydronephrosis on the right. There is no evidence of bowel obstruction. The gallbladder is distended. There is basilar atelectasis. The liver, pancreas, spleen appear unremarkable. IMPRESSION: Moderately distention of the urinary bladder with associated mild hydronephrosis. Distended gallbladder. No obvious gallstones on this study. Mild basilar atelectasis The CT scanner at [facility] is accredited by the [employer] and the scans are performed using dose optimization techniques as appropriate to a performed exam including Automatic Exposure control.
[2018-08-26 16:15] VITALS: BP 106/48
[2018-08-26] MEDS ORDERED: Metoclopramide 10mg/2ml Inj IVP PRN (18:30)
[2018-08-26] MEDS ORDERED: Morphine Sulfate 2mg/ml Inj IVP PRN (18:30)
[2018-08-26] MEDS ORDERED: Mylanta II UD 30ml ORAL PRN (18:30)
[2018-08-26] MEDS ORDERED: LORazepam Inj 2mg/ml 1ml IV PRN (19:00)
--- NOTE | 2018-08-26 19:10 | Internal Med Progress Note ---
Subjective Date of Service: Aug 26, 2018 Physician Name MaravillaAndrew Attending Physician Jared Padgett MD Current Medications Medications (Trade) Dose Ordered Sig/Horace Route PRN Reason Start Time Stop Time Status Last Admin Dose Admin Acetaminophen (Tylenol) 650 mg Q4H PRN ORAL T>100.5 08/26/18 18:30 09/20/18 18:29 Al Hydroxide/Mg Hydroxide (Mylanta II) 30 ml Q6H PRN ORAL dyspepsia 08/26/18 18:30 09/20/18 18:29 Ampicillin 2 gm/ Sodium Chloride 110 ml @ 220 mls/hr EVERY 4 HOURS IVPB 08/26/18 21:00 09/02/18 12:59 Barium Sulfate (Readi-Cat 2) 450 ml NOW PRN ORAL Radiology Procedure 08/26/18 18:30 08/27/18 18:29 Dextrose (Dextrose 50%) 25 ml Q30M PRN IV Hypoglycemia 08/26/18 18:30 09/20/18 18:52 Dextrose (Dextrose 50%) 50 ml Q30M PRN IV Hypoglycemia 08/26/18 18:45 09/20/18 13:13 Heparin Sodium (Porcine) (Heparin 5000 units/ml) 5,000 units EVERY 12 HOURS SUBQ 08/26/18 21:00 09/22/18 20:59 Insulin Aspart (NovoLOG) BEFORE MEALS AND HS SUBQ 08/26/18 21:00 09/23/18 06:29 Iopamidol (Isovue-300 100ml) 100 ml NOW PRN INJ Radiology Procedure 08/26/18 18:30 08/27/18 18:29 Lorazepam (Ativan 2mg/ml 1ml) 0.5 mg Q4H PRN IV For Anxiety 08/26/18 19:00 08/28/18 18:53 Metoclopramide HCl (Reglan) 10 mg Q6H PRN IVP Nausea & Vomiting 08/26/18 18:30 09/22/18 18:29 Morphine Sulfate (Morphine Sulfate) 1 mg Q4H PRN IVP PAIN 4-10 08/26/18 18:30 08/28/18 18:29 Ondansetron HCl (Zofran) 4 mg Q6H PRN IVP Nausea & Vomiting 08/26/18 18:30 09/20/18 18:29 Polyethylene Glycol (Miralax) 17 gm HSPRN PRN ORAL Constipation 08/26/18 21:00 09/21/18 20:59 Risperidone (RisperDAL) 0.5 mg Q6H PRN ORAL agitation 08/26/18 18:30 09/21/18 18:29 Zolpidem Tartrate (Ambien) 5 mg HSPRN PRN ORAL Insomnia 08/26/18 21:00 08/29/18 20:59 Allergies: Coded Allergies: No Known Allergies (Verified , 01/17/08) ROS Limited/Unobtainable: No Constitutional: Reports: no symptoms HEENT: Reports: no symptoms Cardiovascular: Reports: no symptoms Respiratory: Reports: no symptoms Gastrointestinal/Abdominal: Reports: no symptoms Genitourinary: Reports: no symptoms Neurologic/Psychiatric: Reports: no symptoms Subjective 52 YO M admitted with altered mental status. Now hypoglycemia and sepsis. Cover for Int Med-Dr Padgett. Objective Last Vital Signs Date Time Temp Pulse Resp B/P (MAP) Pulse Ox O2 Delivery O2 Flow Rate FiO2 08/26/18 16:15 98.0 68 18 106/48 (67) 94 98.0 08/26/18 09:00 Room Air Laboratory Tests Test 08/26/18 06:00 White Blood Count 6.2 K/UL (4.8-10.8) Red Blood Count 3.53 M/UL (4.70-6.10) L Hemoglobin 11.0 G/DL (14.2-18.0) L Hematocrit 30.7 % (42.0-52.0) L Mean Corpuscular Volume 87 FL (80-99) Mean Corpuscular Hemoglobin 31.1 PG (27.0-31.0) H Mean Corpuscular Hemoglobin Concent 35.8 G/DL (32.0-36.0) Red Cell Distribution Width 12.0 % (11.6-14.8) Platelet Count 285 K/UL (150-450) Mean Platelet Volume 4.3 FL (6.5-10.1) L Neutrophils (%) (Auto) 62.6 % (45.0-75.0) Lymphocytes (%) (Auto) 27.9 % (20.0-45.0) Monocytes (%) (Auto) 7.6 % (1.0-10.0) Eosinophils (%) (Auto) 1.1 % (0.0-3.0) Basophils (%) (Auto) 0.7 % (0.0-2.0) Sodium Level 138 MMOL/L (136-145) Potassium Level 3.9 MMOL/L (3.5-5.1) Chloride Level 105 MMOL/L (98-107) Carbon Dioxide Level 28 MMOL/L (21-32) Anion Gap 5 mmol/L (5-15) Blood Urea Nitrogen 8 mg/dL (7-18) Creatinine 0.5 MG/DL (0.55-1.30) L Estimat Glomerular Filtration Rate > 60 mL/min (>60) Glucose Level 201 MG/DL (74-106) H Calcium Level 8.4 MG/DL (8.5-10.1) L Microbiology Date/Time Source Procedure Growth Status 08/24/18 09:25 Blood Blood Culture - Preliminary NO GROWTH AFTER 24 HOURS Resulted 08/24/18 09:05 Blood Blood Culture - Preliminary NO GROWTH AFTER 24 HOURS Resulted Intake and Output 08/25/18 08/26/18 19:00 07:00 Intake Total 670 ml 240 ml Balance 670 ml 240 ml Intake Oral 670 ml 240 ml # Voids 5 4 # Bowel Movements 1 Objective PHYSICAL EXAMINATION: GENERAL: The patient is thin-appearing male, who is quite agitated. HEENT: Eyes, pupils equal and responsive to light and accommodation. Extraocular movements are intact. NECK: Supple without lymphadenopathy. CHEST: Lungs are clear to auscultation bilaterally without wheezes or rales. CARDIOVASCULAR: Regular rhythm and rate. S1, S2 are normal without murmurs, rubs, or gallops. ABDOMEN: Soft, nontender, and nondistended. Positive bowel sounds. No evidence of hepatosplenomegaly. Currently, no rebound or guarding noted. EXTREMITIES: Negative for clubbing, cyanosis, or edema. RECTAL: Refused. GENITAL: Refused. NEUROLOGIC: The patient is quite agitated. Cranial nerves II through XII are grossly intact without focal deficits. Motor strength is 5/5 bilaterally intact. Deep tendon reflexes are 2+, plantar. Assessment/Plan Problem List: (1) Leukocytosis Assessment & Plan: Resolved on antibiotic (2) Diabetes mellitus type II, uncontrolled Assessment & Plan: Better controlled. See endocrinology consult. (3) Diabetes mellitus Assessment & Plan: ?exogenous insulin vs sepsis? Await endocrinology consult (4) Hypoglycemia Assessment & Plan: FSBG more stable. D/C D10. Start D5NS (5) Sepsis Assessment & Plan: Enterococcus. D/C vanco per ID; start ampicillin IV Status: not improved Andrew Maravilla MD Aug 26, 2018 19:10
[2018-08-26 20:01] VITALS: BP 157/88
[2018-08-26] MEDS ORDERED: Miralax 17gm pkt ORAL PRN (21:00)
[2018-08-26] MEDS ORDERED: Zolpidem 5mg tab ORAL PRN (21:00)
--- NOTE | 2018-08-26 22:57 | Psych Consult Progress Note ---
Psych Consult Progress Note Consult 08/25/18 the pt is having and waning of consciousness. more alert and talkative Vital Signs Last 24 Hour Vital Signs Date Time Temp Pulse Resp B/P (MAP) Pulse Ox O2 Delivery O2 Flow Rate FiO2 08/26/18 20:01 97.9 94 18 157/88 (111) 100 97.9 08/26/18 16:15 98.0 68 18 106/48 (67) 94 98.0 08/26/18 12:00 98.4 89 18 148/48 (81) 99 98.4 08/26/18 09:00 Room Air 08/26/18 08:00 102 08/26/18 08:00 98.1 101 17 117/71 (86) 94 98.1 08/26/18 04:06 97.7 89 20 149/79 (102) 98 97.7 08/26/18 03:35 100 08/26/18 00:32 97.6 94 19 152/81 (104) 99 97.6 08/25/18 23:27 95 Labs Laboratory Tests Test 08/26/18 06:00 White Blood Count 6.2 K/UL (4.8-10.8) Red Blood Count 3.53 M/UL (4.70-6.10) L Hemoglobin 11.0 G/DL (14.2-18.0) L Hematocrit 30.7 % (42.0-52.0) L Mean Corpuscular Volume 87 FL (80-99) Mean Corpuscular Hemoglobin 31.1 PG (27.0-31.0) H Mean Corpuscular Hemoglobin Concent 35.8 G/DL (32.0-36.0) Red Cell Distribution Width 12.0 % (11.6-14.8) Platelet Count 285 K/UL (150-450) Mean Platelet Volume 4.3 FL (6.5-10.1) L Neutrophils (%) (Auto) 62.6 % (45.0-75.0) Lymphocytes (%) (Auto) 27.9 % (20.0-45.0) Monocytes (%) (Auto) 7.6 % (1.0-10.0) Eosinophils (%) (Auto) 1.1 % (0.0-3.0) Basophils (%) (Auto) 0.7 % (0.0-2.0) Sodium Level 138 MMOL/L (136-145) Potassium Level 3.9 MMOL/L (3.5-5.1) Chloride Level 105 MMOL/L (98-107) Carbon Dioxide Level 28 MMOL/L (21-32) Anion Gap 5 mmol/L (5-15) Blood Urea Nitrogen 8 mg/dL (7-18) Creatinine 0.5 MG/DL (0.55-1.30) L Estimat Glomerular Filtration Rate > 60 mL/min (>60) Glucose Level 201 MG/DL (74-106) H Calcium Level 8.4 MG/DL (8.5-10.1) L Medications Current Medications Medications (Trade) Dose Ordered Sig/Horace Route PRN Reason Start Time Stop Time Status Last Admin Dose Admin Acetaminophen (Tylenol) 650 mg Q4H PRN ORAL T>100.5 08/26/18 18:30 09/20/18 18:29 Al Hydroxide/Mg Hydroxide (Mylanta II) 30 ml Q6H PRN ORAL dyspepsia 08/26/18 18:30 09/20/18 18:29 Ampicillin 2 gm/ Sodium Chloride 110 ml @ 220 mls/hr EVERY 4 HOURS IVPB 08/26/18 21:00 09/02/18 12:59 08/26/18 21:12 Barium Sulfate (Readi-Cat 2) 450 ml NOW PRN ORAL Radiology Procedure 08/26/18 18:30 08/27/18 18:29 Dextrose (Dextrose 50%) 25 ml Q30M PRN IV Hypoglycemia 08/26/18 18:30 09/20/18 18:52 Dextrose (Dextrose 50%) 50 ml Q30M PRN IV Hypoglycemia 08/26/18 18:45 09/20/18 13:13 Heparin Sodium (Porcine) (Heparin 5000 units/ml) 5,000 units EVERY 12 HOURS SUBQ 08/26/18 21:00 09/22/18 20:59 08/26/18 20:48 Insulin Aspart (NovoLOG) BEFORE MEALS AND HS SUBQ 08/26/18 21:00 09/23/18 06:29 08/26/18 20:56 Iopamidol (Isovue-300 100ml) 100 ml NOW PRN INJ Radiology Procedure 08/26/18 18:30 08/27/18 18:29 Lorazepam (Ativan 2mg/ml 1ml) 0.5 mg Q4H PRN IV For Anxiety 08/26/18 19:00 08/28/18 18:53 Metoclopramide HCl (Reglan) 10 mg Q6H PRN IVP Nausea & Vomiting 08/26/18 18:30 09/22/18 18:29 Morphine Sulfate (Morphine Sulfate) 1 mg Q4H PRN IVP PAIN 4-10 08/26/18 18:30 08/28/18 18:29 Ondansetron HCl (Zofran) 4 mg Q6H PRN IVP Nausea & Vomiting 08/26/18 18:30 09/20/18 18:29 Polyethylene Glycol (Miralax) 17 gm HSPRN PRN ORAL Constipation 08/26/18 21:00 09/21/18 20:59 Risperidone (RisperDAL) 0.5 mg Q6H PRN ORAL agitation 08/26/18 18:30 09/21/18 18:29 Zolpidem Tartrate (Ambien) 5 mg HSPRN PRN ORAL Insomnia 08/26/18 21:00 08/29/18 20:59 Problems: (1) Failure to thrive Status: Acute (2) Diabetes mellitus (3) Acute encephalopathy Assessment & Plan: seroquel prn provided carlos villasenor for fall Aric Peck MD Aug 26, 2018 22:57
[2018-08-27] VITALS: BP 153/82
[2018-08-27] MEDS: Ampicillin 2 GM in NS 110 ML IVPB SCH ×5 (01:03→17:00)
[2018-08-27 04:14] VITALS: BP 120/76
[2018-08-27] MEDS: NovoLOG Insulin Flexpen SUBQ SCH ×3 (05:39→17:31)
--- NOTE | 2018-08-27 06:07 | General Progress Note ---
Assessment/Plan Problem List: (1) Hypoglycemia ICD Codes: E16.2 - Hypoglycemia, unspecified SNOMED: 948341695 (2) Sepsis ICD Codes: A41.9 - Sepsis, unspecified organism SNOMED: 68014640 Qualifiers: Qualified Codes: A41.9 - Sepsis, unspecified organism (3) Diabetes mellitus type II, uncontrolled ICD Codes: E11.65 - Type 2 diabetes mellitus with hyperglycemia SNOMED: 65348159, [id number] Assessment/Plan start Metformin 500 mg bid start Januvia 100 mg daily continue SSI Subjective Allergies: Coded Allergies: No Known Allergies (Verified , 01/17/08) All Systems: reviewed and negative except above Subjective events noted Objective Last 24 Hour Vital Signs Date Time Temp Pulse Resp B/P (MAP) Pulse Ox O2 Delivery O2 Flow Rate FiO2 08/27/18 04:14 98.1 91 17 120/76 (91) 100 98.1 08/27/18 00:00 98.2 96 18 153/82 (105) 99 98.2 08/26/18 21:00 Room Air 08/26/18 20:01 97.9 94 18 157/88 (111) 100 97.9 08/26/18 16:15 98.0 68 18 106/48 (67) 94 98.0 08/26/18 12:00 98.4 89 18 148/48 (81) 99 98.4 08/26/18 09:00 Room Air 08/26/18 08:00 102 08/26/18 08:00 98.1 101 17 117/71 (86) 94 98.1 Intake and Output 08/26/18 08/27/18 19:00 07:00 Intake Total 240 ml 1140 ml Balance 240 ml 1140 ml Intake Oral 240 ml 480 ml IV Total 660 ml # Voids 3 2 Height (Feet): 5 Height (Inches): 3.00 Weight (Pounds): 89 General Appearance: no apparent distress Neck: normal alignment Cardiovascular: normal rate Respiratory/Chest: lungs clear Abdomen: normal bowel sounds Objective Current Medications Medications (Trade) Dose Ordered Sig/Horace Route PRN Reason Start Time Stop Time Status Last Admin Dose Admin Acetaminophen (Tylenol) 650 mg Q4H PRN ORAL T>100.5 08/26/18 18:30 09/20/18 18:29 Al Hydroxide/Mg Hydroxide (Mylanta II) 30 ml Q6H PRN ORAL dyspepsia 08/26/18 18:30 09/20/18 18:29 Ampicillin 2 gm/ Sodium Chloride 110 ml @ 220 mls/hr EVERY 4 HOURS IVPB 08/26/18 21:00 09/02/18 12:59 08/27/18 05:27 Barium Sulfate (Readi-Cat 2) 450 ml NOW PRN ORAL Radiology Procedure 08/26/18 18:30 08/27/18 18:29 Dextrose (Dextrose 50%) 25 ml Q30M PRN IV Hypoglycemia 08/26/18 18:30 09/20/18 18:52 Dextrose (Dextrose 50%) 50 ml Q30M PRN IV Hypoglycemia 08/26/18 18:45 09/20/18 13:13 Heparin Sodium (Porcine) (Heparin 5000 units/ml) 5,000 units EVERY 12 HOURS SUBQ 08/26/18 21:00 09/22/18 20:59 08/26/18 20:48 Insulin Aspart (NovoLOG) BEFORE MEALS AND HS SUBQ 08/26/18 21:00 09/23/18 06:29 08/27/18 05:39 Iopamidol (Isovue-300 100ml) 100 ml NOW PRN INJ Radiology Procedure 08/26/18 18:30 08/27/18 18:29 Lorazepam (Ativan 2mg/ml 1ml) 0.5 mg Q4H PRN IV For Anxiety 08/26/18 19:00 08/28/18 18:53 Metoclopramide HCl (Reglan) 10 mg Q6H PRN IVP Nausea & Vomiting 08/26/18 18:30 09/22/18 18:29 Morphine Sulfate (Morphine Sulfate) 1 mg Q4H PRN IVP PAIN 4-10 08/26/18 18:30 08/28/18 18:29 Ondansetron HCl (Zofran) 4 mg Q6H PRN IVP Nausea & Vomiting 08/26/18 18:30 09/20/18 18:29 Polyethylene Glycol (Miralax) 17 gm HSPRN PRN ORAL Constipation 08/26/18 21:00 09/21/18 20:59 Risperidone (RisperDAL) 0.5 mg Q6H PRN ORAL agitation 08/26/18 18:30 09/21/18 18:29 Zolpidem Tartrate (Ambien) 5 mg HSPRN PRN ORAL Insomnia 08/26/18 21:00 08/29/18 20:59 Item Value Date Time Bedside Blood Glucose 221 mg/dl H 08/27/18 0539 Bedside Blood Glucose 137 mg/dl H 08/26/18 2100 Bedside Blood Glucose 91 mg/dl 08/26/18 1630 Bedside Blood Glucose 295 mg/dl H 08/26/18 1308 Bedside Blood Glucose 225 mg/dl H 08/26/18 0603 Robert Yap MD Aug 27, 2018 06:07
[2018-08-27 07:21] LABS: BASOPHILS % (AUTO) 0.3 % (0.0-2.0); EOSINOPHILS % (AUTO) 1.6 % (0.0-3.0); HEMATOCRIT 33.2 % (42.0-52.0); HEMOGLOBIN 11.3 G/DL (14.2-18.0); LYMPHOCYTES % (AUTO) 26.1 % (20.0-45.0); MEAN CORPUSCULAR VOLUME 90 FL (80-99); MONOCYTES % (AUTO) 8.8 % (1.0-10.0); NEUTROPHILS % (AUTO) 63.1 % (45.0-75.0); PLATELET COUNT 294 K/UL (150-450); RED CELL DISTRIBUTION WIDTH 11.9 % (11.6-14.8); WHITE BLOOD COUNT 5.6 K/UL (4.8-10.8)
[2018-08-27 07:38] LABS: ANION GAP 6 mmol/L (5-15); BLOOD UREA NITROGEN 15 mg/dL (7-18); CALCIUM 8.6 MG/DL (8.5-10.1); CARBON DIOXIDE 31 MMOL/L (21-32); CHLORIDE 100 MMOL/L (98-107); CREATININE 0.6 MG/DL (0.55-1.30); SODIUM 137 MMOL/L (136-145)
[2018-08-27 08:00] VITALS: BP 141/91
[2018-08-27] MEDS: metFORMIN 500mg tab ORAL SCH ×2 (09:07→18:00)
[2018-08-27] MEDS: Heparin 5000 units/ml inj SUBQ SCH (09:08)
--- NOTE | 2018-08-27 11:30 | Infectious Diseases Prog Note ---
Assessment/Plan Assessment/Plan Assessment: Sepsis,SP Hypothermia, SP Leukocytosis- SP -u/a neg -CXR: n o acute disease Enterococcus bacteremia- low grade- ?source -CT abd/p: Moderately distention of the urinary bladder with associated mild hydronephrosis. Distended gallbladder. No obvious gallstones on this study. Mild basilar atelectasis -2d Echo: no vegetations -08/21 Bcx 1/4 enterococcus ; 08/23, NTD SEvere hypoglycemia- ?extra insulin administration vs r/o insulinoma; improving DM Plan: -Continue IV Ampicillin for enterococcal bacteremia (abx d#04/25) -upon discharge can be transitioned to IV Daptomycin 6mg/kg qd or PO Linezolid 600mg bid to complete course -08/26 SP Ceftriaxone #6, IV Vanco #5 -f/u cx -Monitor CBC/CMP, temperatures -f/u Repeat Bcx x2 -Endocrine f/u Will continue to follow along with you. Subjective Allergies: Coded Allergies: No Known Allergies (Verified , 01/17/08) Subjective afebrile no leukocytosis repeat Bcx NTD Objective Vital Signs Last 24 Hour Vital Signs Date Time Temp Pulse Resp B/P (MAP) Pulse Ox O2 Delivery O2 Flow Rate FiO2 08/27/18 09:00 Room Air 08/27/18 08:00 97.6 103 18 141/91 (108) 100 97.6 08/27/18 04:14 98.1 91 17 120/76 (91) 100 98.1 08/27/18 00:00 98.2 96 18 153/82 (105) 99 98.2 08/26/18 21:00 Room Air 08/26/18 20:01 97.9 94 18 157/88 (111) 100 97.9 08/26/18 16:15 98.0 68 18 106/48 (67) 94 98.0 08/26/18 12:00 98.4 89 18 148/48 (81) 99 98.4 Height (Feet): 5 Height (Inches): 3.00 Weight (Pounds): 82 Objective General Appearance: no apparent distress, alert, non-toxic, cachetic HEENT: normocephalic, atraumatic, bilateral eye PERRL, normal pharynx Neck: full range of motion, supple/symm/no masses Respiratory: chest non-tender, lungs clear, normal breath sounds, speaking full sentences Cardiovascular: regular rate, rhythm, no edema Gastrointestinal: normal bowel sounds, non tender, soft, non-distended, no guarding, no rebound Rectal: deferred Genitourinary: normal inspection, no CVA tenderness Musculoskeletal: back normal, gait/station normal, normal range of motion, non- tender Skin: normal color, no rash, warm/dry, well hydrated Lymphatic: no adenopathy Laboratory Tests Test 08/27/18 06:25 White Blood Count 5.6 K/UL (4.8-10.8) Red Blood Count 3.70 M/UL (4.70-6.10) L Hemoglobin 11.3 G/DL (14.2-18.0) L Hematocrit 33.2 % (42.0-52.0) L Mean Corpuscular Volume 90 FL (80-99) Mean Corpuscular Hemoglobin 30.6 PG (27.0-31.0) Mean Corpuscular Hemoglobin Concent 34.1 G/DL (32.0-36.0) Red Cell Distribution Width 11.9 % (11.6-14.8) Platelet Count 294 K/UL (150-450) Mean Platelet Volume 4.7 FL (6.5-10.1) L Neutrophils (%) (Auto) 63.1 % (45.0-75.0) Lymphocytes (%) (Auto) 26.1 % (20.0-45.0) Monocytes (%) (Auto) 8.8 % (1.0-10.0) Eosinophils (%) (Auto) 1.6 % (0.0-3.0) Basophils (%) (Auto) 0.3 % (0.0-2.0) Sodium Level 137 MMOL/L (136-145) Potassium Level 4.0 MMOL/L (3.5-5.1) Chloride Level 100 MMOL/L (98-107) Carbon Dioxide Level 31 MMOL/L (21-32) Anion Gap 6 mmol/L (5-15) Blood Urea Nitrogen 15 mg/dL (7-18) Creatinine 0.6 MG/DL (0.55-1.30) Estimat Glomerular Filtration Rate > 60 mL/min (>60) Glucose Level 253 MG/DL (74-106) H Calcium Level 8.6 MG/DL (8.5-10.1) Current Medications Medications (Trade) Dose Ordered Sig/Horace Route PRN Reason Start Time Stop Time Status Last Admin Dose Admin Acetaminophen (Tylenol) 650 mg Q4H PRN ORAL T>100.5 08/26/18 18:30 09/20/18 18:29 Al Hydroxide/Mg Hydroxide (Mylanta II) 30 ml Q6H PRN ORAL dyspepsia 08/26/18 18:30 09/20/18 18:29 Ampicillin 2 gm/ Sodium Chloride 110 ml @ 220 mls/hr EVERY 4 HOURS IVPB 08/26/18 21:00 09/04/18 22:00 08/27/18 09:10 Barium Sulfate (Readi-Cat 2) 450 ml NOW PRN ORAL Radiology Procedure 08/26/18 18:30 08/27/18 18:29 Dextrose (Dextrose 50%) 25 ml Q30M PRN IV Hypoglycemia 08/26/18 18:30 09/20/18 18:52 Dextrose (Dextrose 50%) 50 ml Q30M PRN IV Hypoglycemia 08/26/18 18:45 09/20/18 13:13 Heparin Sodium (Porcine) (Heparin 5000 units/ml) 5,000 units EVERY 12 HOURS SUBQ 08/26/18 21:00 09/22/18 20:59 08/27/18 09:08 Insulin Aspart (NovoLOG) BEFORE MEALS AND HS SUBQ 08/26/18 21:00 09/23/18 06:29 08/27/18 05:39 Iopamidol (Isovue-300 100ml) 100 ml NOW PRN INJ Radiology Procedure 08/26/18 18:30 08/27/18 18:29 Lorazepam (Ativan 2mg/ml 1ml) 0.5 mg Q4H PRN IV For Anxiety 08/26/18 19:00 08/28/18 18:53 Metformin HCl (Glucophage) 500 mg BID ORAL 08/27/18 09:00 09/26/18 08:59 08/27/18 09:07 Metoclopramide HCl (Reglan) 10 mg Q6H PRN IVP Nausea & Vomiting 08/26/18 18:30 09/22/18 18:29 Morphine Sulfate (Morphine Sulfate) 1 mg Q4H PRN IVP PAIN 4-10 08/26/18 18:30 08/28/18 18:29 Ondansetron HCl (Zofran) 4 mg Q6H PRN IVP Nausea & Vomiting 08/26/18 18:30 09/20/18 18:29 Polyethylene Glycol (Miralax) 17 gm HSPRN PRN ORAL Constipation 08/26/18 21:00 09/21/18 20:59 Risperidone (RisperDAL) 0.5 mg Q6H PRN ORAL agitation 08/26/18 18:30 09/21/18 18:29 Sitagliptin Phosphate (Januvia) 100 mg ACBREAKFAST ORAL 08/27/18 06:30 09/26/18 06:29 08/27/18 06:46 Zolpidem Tartrate (Ambien) 5 mg HSPRN PRN ORAL Insomnia 08/26/18 21:00 08/29/18 20:59 Kellie Welch M.D. Aug 27, 2018 11:30
[2018-08-27 12:00] VITALS: BP 119/93
[2018-08-27] MEDS ORDERED: JANUVIA100 MG ORAL (12:05)
[2018-08-27] MEDS ORDERED: ZYVOX100 MG/5 M ORAL (12:05)
[2018-08-27] MEDS ORDERED: NOVOLOG100 UNITS1 SUBQ (12:05)
[2018-08-27] MEDS ORDERED: GLUCOPHAGE500 MG ORAL (12:05)
[2018-08-27] MEDS ORDERED: AMBIEN5 MG ORAL (12:06)
--- NOTE | 2018-08-27 12:13 | Pulmonology Progress Note ---
Assessment/Plan Problems: (1) Sepsis (2) Bacteremia (3) Acute encephalopathy (4) Hypoglycemia (5) Failure to thrive (6) Diabetes mellitus (7) Severe protein-calorie malnutrition Assessment/Plan mental status improving BS more stable, high now CT of abdomen showed only mild hydronephrosis dc home with oral Linezolid d/w pts son at the bed site Subjective ROS Limited/Unobtainable: No Constitutional: Reports: no symptoms HEENT: Repors: no symptoms Respiratory: Reports: no symptoms Allergies: Coded Allergies: No Known Allergies (Verified , 01/17/08) Objective Last 24 Hour Vital Signs Date Time Temp Pulse Resp B/P (MAP) Pulse Ox O2 Delivery O2 Flow Rate FiO2 08/27/18 09:00 Room Air 08/27/18 08:00 97.6 103 18 141/91 (108) 100 97.6 08/27/18 04:14 98.1 91 17 120/76 (91) 100 98.1 08/27/18 00:00 98.2 96 18 153/82 (105) 99 98.2 08/26/18 21:00 Room Air 08/26/18 20:01 97.9 94 18 157/88 (111) 100 97.9 08/26/18 16:15 98.0 68 18 106/48 (67) 94 98.0 Intake and Output 08/26/18 08/27/18 19:00 07:00 Intake Total 240 ml 1460 ml Output Total 300 ml Balance 240 ml 1160 ml Intake Oral 240 ml 800 ml IV Total 660 ml Output Urine Total 300 ml # Voids 3 6 General Appearance: cachetic HEENT: normocephalic, atraumatic Respiratory/Chest: chest wall non-tender, lungs clear Cardiovascular: normal peripheral pulses, normal rate Abdomen: normal bowel sounds, soft, non tender Genitourinary: normal external genitalia Extremities: no cyanosis Laboratory Tests 08/27/18 06:25: White Blood Count 5.6, Red Blood Count 3.70L, Hemoglobin 11.3L, Hematocrit 33.2L , Mean Corpuscular Volume 90, Mean Corpuscular Hemoglobin 30.6, Mean Corpuscular Hemoglobin Concent 34.1, Red Cell Distribution Width 11.9, Platelet Count 294, Mean Platelet Volume 4.7L, Neutrophils (%) (Auto) 63.1, Lymphocytes ( %) (Auto) 26.1, Monocytes (%) (Auto) 8.8, Eosinophils (%) (Auto) 1.6, Basophils (%) (Auto) 0.3, Sodium Level 137, Potassium Level 4.0, Chloride Level 100, Carbon Dioxide Level 31, Anion Gap 6, Blood Urea Nitrogen 15, Creatinine 0.6, Estimat Glomerular Filtration Rate > 60, Glucose Level 253H, Calcium Level 8.6 Current Medications Medications (Trade) Dose Ordered Sig/Horace Route PRN Reason Start Time Stop Time Status Last Admin Dose Admin Acetaminophen (Tylenol) 650 mg Q4H PRN ORAL T>100.5 08/26/18 18:30 09/20/18 18:29 Al Hydroxide/Mg Hydroxide (Mylanta II) 30 ml Q6H PRN ORAL dyspepsia 08/26/18 18:30 09/20/18 18:29 Ampicillin 2 gm/ Sodium Chloride 110 ml @ 220 mls/hr EVERY 4 HOURS IVPB 08/26/18 21:00 09/04/18 22:00 08/27/18 09:10 Barium Sulfate (Readi-Cat 2) 450 ml NOW PRN ORAL Radiology Procedure 08/26/18 18:30 08/27/18 18:29 Dextrose (Dextrose 50%) 25 ml Q30M PRN IV Hypoglycemia 08/26/18 18:30 09/20/18 18:52 Dextrose (Dextrose 50%) 50 ml Q30M PRN IV Hypoglycemia 08/26/18 18:45 09/20/18 13:13 Heparin Sodium (Porcine) (Heparin 5000 units/ml) 5,000 units EVERY 12 HOURS SUBQ 08/26/18 21:00 09/22/18 20:59 08/27/18 09:08 Insulin Aspart (NovoLOG) BEFORE MEALS AND HS SUBQ 08/26/18 21:00 09/23/18 06:29 08/27/18 05:39 Iopamidol (Isovue-300 100ml) 100 ml NOW PRN INJ Radiology Procedure 08/26/18 18:30 08/27/18 18:29 Lorazepam (Ativan 2mg/ml 1ml) 0.5 mg Q4H PRN IV For Anxiety 08/26/18 19:00 08/28/18 18:53 Metformin HCl (Glucophage) 500 mg BID ORAL 08/27/18 09:00 09/26/18 08:59 08/27/18 09:07 Metoclopramide HCl (Reglan) 10 mg Q6H PRN IVP Nausea & Vomiting 08/26/18 18:30 09/22/18 18:29 Morphine Sulfate (Morphine Sulfate) 1 mg Q4H PRN IVP PAIN 4-10 08/26/18 18:30 08/28/18 18:29 Ondansetron HCl (Zofran) 4 mg Q6H PRN IVP Nausea & Vomiting 08/26/18 18:30 09/20/18 18:29 Polyethylene Glycol (Miralax) 17 gm HSPRN PRN ORAL Constipation 08/26/18 21:00 09/21/18 20:59 Risperidone (RisperDAL) 0.5 mg Q6H PRN ORAL agitation 08/26/18 18:30 09/21/18 18:29 Sitagliptin Phosphate (Januvia) 100 mg ACBREAKFAST ORAL 08/27/18 06:30 09/26/18 06:29 08/27/18 06:46 Zolpidem Tartrate (Ambien) 5 mg HSPRN PRN ORAL Insomnia 08/26/18 21:00 08/29/18 20:59 Vic Kaminski MD Aug 27, 2018 12:13
--- NOTE | 2018-08-27 15:45 | Cardiac Electrophysiology PN ---
Assessment/Plan Assessment/Plan 1. Altered mental status likely due to recurrent hypoglycemia. Resolved. Echocardiogram Nl EF 55% 2. Recurrent hypoglycemia. Further evaluation by Endocrinology 3. Sepsis with high WBC. On Abx DW son at bedside Subjective Subjective Alert in NAD. No CP or SOB.Son at bedside Objective Last 24 Hour Vital Signs Date Time Temp Pulse Resp B/P (MAP) Pulse Ox O2 Delivery O2 Flow Rate FiO2 08/27/18 12:00 99.2 105 18 119/93 (102) 100 99.2 08/27/18 09:00 Room Air 08/27/18 08:00 97.6 103 18 141/91 (108) 100 97.6 08/27/18 04:14 98.1 91 17 120/76 (91) 100 98.1 08/27/18 00:00 98.2 96 18 153/82 (105) 99 98.2 08/26/18 21:00 Room Air 08/26/18 20:01 97.9 94 18 157/88 (111) 100 97.9 08/26/18 16:15 98.0 68 18 106/48 (67) 94 98.0 Intake and Output 08/26/18 08/27/18 19:00 07:00 Intake Total 240 ml 1460 ml Output Total 300 ml Balance 240 ml 1160 ml Intake Oral 240 ml 800 ml IV Total 660 ml Output Urine Total 300 ml # Voids 3 6 Laboratory Tests Test 08/27/18 06:25 White Blood Count 5.6 K/UL (4.8-10.8) Red Blood Count 3.70 M/UL (4.70-6.10) L Hemoglobin 11.3 G/DL (14.2-18.0) L Hematocrit 33.2 % (42.0-52.0) L Mean Corpuscular Volume 90 FL (80-99) Mean Corpuscular Hemoglobin 30.6 PG (27.0-31.0) Mean Corpuscular Hemoglobin Concent 34.1 G/DL (32.0-36.0) Red Cell Distribution Width 11.9 % (11.6-14.8) Platelet Count 294 K/UL (150-450) Mean Platelet Volume 4.7 FL (6.5-10.1) L Neutrophils (%) (Auto) 63.1 % (45.0-75.0) Lymphocytes (%) (Auto) 26.1 % (20.0-45.0) Monocytes (%) (Auto) 8.8 % (1.0-10.0) Eosinophils (%) (Auto) 1.6 % (0.0-3.0) Basophils (%) (Auto) 0.3 % (0.0-2.0) Sodium Level 137 MMOL/L (136-145) Potassium Level 4.0 MMOL/L (3.5-5.1) Chloride Level 100 MMOL/L (98-107) Carbon Dioxide Level 31 MMOL/L (21-32) Anion Gap 6 mmol/L (5-15) Blood Urea Nitrogen 15 mg/dL (7-18) Creatinine 0.6 MG/DL (0.55-1.30) Estimat Glomerular Filtration Rate > 60 mL/min (>60) Glucose Level 253 MG/DL (74-106) H Calcium Level 8.6 MG/DL (8.5-10.1) Objective HEAD AND NECK: No JVD. LUNGS: Clear. CARDIOVASCULAR: Regular S1 and S2 with no gallop or murmur. ABDOMEN: Soft. EXTREMITIES: No pitting edema. Mert Liz MD Aug 27, 2018 15:45
[2018-08-27 16:00] VITALS: BP 116/73
--- NOTE | 2018-08-27 16:41 | Internal Med Progress Note ---
Subjective Date of Service: Aug 27, 2018 Physician Name Andrew Maravilla Attending Physician Jared Padgett MD Current Medications Medications (Trade) Dose Ordered Sig/Horace Route PRN Reason Start Time Stop Time Status Last Admin Dose Admin Acetaminophen (Tylenol) 650 mg Q4H PRN ORAL T>100.5 08/26/18 18:30 09/20/18 18:29 Al Hydroxide/Mg Hydroxide (Mylanta II) 30 ml Q6H PRN ORAL dyspepsia 08/26/18 18:30 09/20/18 18:29 Ampicillin 2 gm/ Sodium Chloride 110 ml @ 220 mls/hr EVERY 4 HOURS IVPB 08/26/18 21:00 09/04/18 22:00 08/27/18 12:51 Barium Sulfate (Readi-Cat 2) 450 ml NOW PRN ORAL Radiology Procedure 08/26/18 18:30 08/27/18 18:29 Dextrose (Dextrose 50%) 25 ml Q30M PRN IV Hypoglycemia 08/26/18 18:30 09/20/18 18:52 Dextrose (Dextrose 50%) 50 ml Q30M PRN IV Hypoglycemia 08/26/18 18:45 09/20/18 13:13 Heparin Sodium (Porcine) (Heparin 5000 units/ml) 5,000 units EVERY 12 HOURS SUBQ 08/26/18 21:00 09/22/18 20:59 08/27/18 09:08 Insulin Aspart (NovoLOG) BEFORE MEALS AND HS SUBQ 08/26/18 21:00 09/23/18 06:29 08/27/18 12:52 Iopamidol (Isovue-300 100ml) 100 ml NOW PRN INJ Radiology Procedure 08/26/18 18:30 08/27/18 18:29 Lorazepam (Ativan 2mg/ml 1ml) 0.5 mg Q4H PRN IV For Anxiety 08/26/18 19:00 08/28/18 18:53 Metformin HCl (Glucophage) 500 mg BID ORAL 08/27/18 09:00 09/26/18 08:59 08/27/18 09:07 Metoclopramide HCl (Reglan) 10 mg Q6H PRN IVP Nausea & Vomiting 08/26/18 18:30 09/22/18 18:29 Morphine Sulfate (Morphine Sulfate) 1 mg Q4H PRN IVP PAIN 4-10 08/26/18 18:30 08/28/18 18:29 Ondansetron HCl (Zofran) 4 mg Q6H PRN IVP Nausea & Vomiting 08/26/18 18:30 09/20/18 18:29 Polyethylene Glycol (Miralax) 17 gm HSPRN PRN ORAL Constipation 08/26/18 21:00 09/21/18 20:59 Risperidone (RisperDAL) 0.5 mg Q6H PRN ORAL agitation 08/26/18 18:30 09/21/18 18:29 Sitagliptin Phosphate (Januvia) 100 mg ACBREAKFAST ORAL 08/27/18 06:30 09/26/18 06:29 08/27/18 06:46 Zolpidem Tartrate (Ambien) 5 mg HSPRN PRN ORAL Insomnia 08/26/18 21:00 08/29/18 20:59 Allergies: Coded Allergies: No Known Allergies (Verified , 01/17/08) ROS Limited/Unobtainable: No Constitutional: Reports: no symptoms HEENT: Reports: no symptoms Cardiovascular: Reports: no symptoms Respiratory: Reports: no symptoms Gastrointestinal/Abdominal: Reports: no symptoms Genitourinary: Reports: no symptoms Neurologic/Psychiatric: Reports: no symptoms Subjective 52 YO M admitted with altered mental status. Now hypoglycemia and sepsis. Cover for Int Med-Dr Padgett. Objective Last Vital Signs Date Time Temp Pulse Resp B/P (MAP) Pulse Ox O2 Delivery O2 Flow Rate FiO2 08/27/18 12:00 99.2 105 18 119/93 (102) 100 99.2 08/27/18 09:00 Room Air Laboratory Tests Test 08/27/18 06:25 White Blood Count 5.6 K/UL (4.8-10.8) Red Blood Count 3.70 M/UL (4.70-6.10) L Hemoglobin 11.3 G/DL (14.2-18.0) L Hematocrit 33.2 % (42.0-52.0) L Mean Corpuscular Volume 90 FL (80-99) Mean Corpuscular Hemoglobin 30.6 PG (27.0-31.0) Mean Corpuscular Hemoglobin Concent 34.1 G/DL (32.0-36.0) Red Cell Distribution Width 11.9 % (11.6-14.8) Platelet Count 294 K/UL (150-450) Mean Platelet Volume 4.7 FL (6.5-10.1) L Neutrophils (%) (Auto) 63.1 % (45.0-75.0) Lymphocytes (%) (Auto) 26.1 % (20.0-45.0) Monocytes (%) (Auto) 8.8 % (1.0-10.0) Eosinophils (%) (Auto) 1.6 % (0.0-3.0) Basophils (%) (Auto) 0.3 % (0.0-2.0) Sodium Level 137 MMOL/L (136-145) Potassium Level 4.0 MMOL/L (3.5-5.1) Chloride Level 100 MMOL/L (98-107) Carbon Dioxide Level 31 MMOL/L (21-32) Anion Gap 6 mmol/L (5-15) Blood Urea Nitrogen 15 mg/dL (7-18) Creatinine 0.6 MG/DL (0.55-1.30) Estimat Glomerular Filtration Rate > 60 mL/min (>60) Glucose Level 253 MG/DL (74-106) H Calcium Level 8.6 MG/DL (8.5-10.1) Intake and Output 08/26/18 08/27/18 19:00 07:00 Intake Total 240 ml 1460 ml Output Total 300 ml Balance 240 ml 1160 ml Intake Oral 240 ml 800 ml IV Total 660 ml Output Urine Total 300 ml # Voids 3 6 Objective PHYSICAL EXAMINATION: GENERAL: The patient is thin-appearing male, who is quite agitated. HEENT: Eyes, pupils equal and responsive to light and accommodation. Extraocular movements are intact. NECK: Supple without lymphadenopathy. CHEST: Lungs are clear to auscultation bilaterally without wheezes or rales. CARDIOVASCULAR: Regular rhythm and rate. S1, S2 are normal without murmurs, rubs, or gallops. ABDOMEN: Soft, nontender, and nondistended. Positive bowel sounds. No evidence of hepatosplenomegaly. Currently, no rebound or guarding noted. EXTREMITIES: Negative for clubbing, cyanosis, or edema. RECTAL: Refused. GENITAL: Refused. NEUROLOGIC: The patient is quite agitated. Cranial nerves II through XII are grossly intact without focal deficits. Motor strength is 5/5 bilaterally intact. Deep tendon reflexes are 2+, plantar. Assessment/Plan Problem List: (1) Leukocytosis Assessment & Plan: Resolved on antibiotic (2) Diabetes mellitus type II, uncontrolled Assessment & Plan: Better controlled. See endocrinology consult. (3) Diabetes mellitus Assessment & Plan: ?exogenous insulin vs sepsis? Await endocrinology consult (4) Hypoglycemia Assessment & Plan: FSBG more stable. now hyperglycemia. Start metformin and januvia-see endocrinology note. (5) Sepsis Assessment & Plan: Enterococcus. D/C vanco per ID; start ampicillin IV Status: not improved Assessment/Plan Discharge planning Andrew Maravilla MD Aug 27, 2018 16:41
--- NOTE | 2018-08-27 18:30 | Progress Note ---
DATA: 08/27/2018 SUBJECTIVE: The patient has waxing and waning consciousness. He is able to answer the questions. No acute distress. Alert and oriented, however, he does not know the year, and his response time is lagging when I asked quite simple questions. MENTAL STATUS EXAMINATION: The patient is alert and oriented to time, self, place, and situation. He has fatigue, psychomotor retardation. Mood is dysphoric. Affect is constricted, congruent mood. Thought process, confused. Thought content, no suicidal or homicidal ideations. ASSESSMENT: 1. Encephalopathy due to metabolic disorder, toxic. 2. Diabetic mellitus. 3. Anxiety disorder. PLAN: 1. We will continue the Seroquel p.r.n. 2. Provide with reality orientation and supportive therapy. 3. We will continue to follow and readjust the medications. Aric Peck M.D. DR: AB JOB#: [id number] CC:
--- NOTE | 2018-08-28 12:26 | Discharge Summary ---
Discharge Summary Discharge Summary _ DATE OF ADMISSION: 08/21/2018 DATE OF DISCHARGE: 08/27/2018 REASON FOR ADMISSION: 52 years old male with past medical history of diabetes, presented to emergency department for evaluation due to altered mental status and hypoglycemia. According to paramedics, blood sugar in the field was in 20s. Patient received glucagon. Upon arrival to emergency department, patient was more awake and alert. Patient reported feeling week. No fevers, no chills. Vital signs revealed hypothermia . Laboratory workup revealed leukocytosis with WBC 22.6, stable hemoglobin and hematocrit. Glucose 65. Lactic acid 2.0. Potassium-3.3 Stable other electrolytes, stable renal parameters. Chest x-ray revealed no acute cardiopulmonary pathology. Urinalysis revealed no evidence of UTI. Troponin negative. EKG revealed normal sinus rhythm, no acute ischemic changes. Septic workup initiated. Patient started on empiric antibiotics and fluid resuscitation with dextrose. patient admitted with diagnoses of sepsis, hypoglycemia, acute encephalopathy, failure to thrive. CONSULTANTS: ornament maker hand Dr. Liz pulmonary Dr. Kaminski ID specialist Dr. Calhoun psychiatrist sleeve separator Dr. Yap [facility] COURSE: Patient admitted and started on IV fluids and empiric antibiotics. ID specialist closely followed. Urinalysis was negative for UTI . Chest x-ray revealed no acute cardiopulmonary pathology . Initial blood culture revealed 1 out of 4 Enterococci. Repeated blood culture on 08/23 and 08/24 were negative. Echocardiogram revealed no evidence of vegetation. CT abdomen and pelvis revealed no acute infectious process/. Patient was on IV antibiotics , while in the hospital and switched to oral antibiotics to complete treatment upon discharge as recommended by infectious disease specialist. Order Builder seen and evaluated patient. Patient initially was receiving NG tube feeding due to acute encephalopathy. Blood sugar was managed with sliding scale of insulin as needed. As patient's mental status improved, NG tube was discontinued. Patient was started on diabetic diet and Januvia and Metformin . CT of the head revealed no acute intracranial process , but showed involutional changes consistent with small vessel disease and stable small old lacunar infarct, involving the left basal ganglia. CTA of the head revealed no high-grade stenosis, vascular malformation or aneurysm. Ilti-[id number] atherosclerotic disease of the distal internal carotid arteries at the supraclinoid portion bilaterally. Evidence of old lacunar infarct involving the left basal ganglia noted with generalized mild atrophy of the brain. Lipid panel revealed elevated total cholesterol 253, elevated LDL of 130. Patient was counseled on low-fat low-cholesterol diabetic cardiac diet Patient was recommended to recheck lipid panel in 3 months and if still elevated LDL , consider starting statin. Renal parameters and electrolytes were closely monitored ; electrolytes , mainly potassium corrected as needed. Nephrotoxins were avoided. Low Voltage Electrician closely followed . Echocardiogram revealed preserved ejection fraction 55% . Patient was severely malnourished and underweight. [employer] recommendations implemented in plan of care. Patient was on Glucerna and Ortiz. Speech therapist closely followed with dysphagia management. Patient was stable to resume mechanical soft diet with thin liquids with aspiration precautiona. Blood sugar stabilize, no further episodes of hypoglycemia. Patient to see his primary care provider next week. Recommended compliance with medication regimen and recording of blood sugar for primary care provider review and further adjustment of anti-glycemic regimen. Diabetes education provided prior to discharge. Psychiatrist seen and evaluated the patient . Reality orientation provided . Patient initially had sitter for safety. Patient clinically stabilized, and was ready for discharge home. Leukocytosis resolved. FINAL DIAGNOSES: Sepsis with Enterococci bacteremia Recurrent hypoglycemia Acute metabolic encephalopathy likely secondary to recurrent hypoglycemia- resolved Diabetes mellitus type 2 ,uncontrolled Severe protein calorie malnutrition Hyperlipidemia DISCHARGE MEDICATIONS: See Medication Reconciliation list. DISCHARGE INSTRUCTIONS: Patient was discharged home Follow up with primary care provider in one week. I have been assigned to dictate discharge summary for this account. I was not involved in the patient's management. Majo Campos NP Aug 28, 2018 12:26
== END 2018-08-27 18:25 | disposition home or self-care (01) | DRG 871 ==
LOC: EDBD 11:41 → EMR 12:50 → 4E 13:01 → EDBEDREQ 13:04 → 2W 08-22 12:00 → ICU 08-22 16:50 → 2E 08-24 14:20 → 3E 08-26 17:50
DX: A41.81 Sepsis due to Enterococcus (principal); E43 Unspecified severe protein-calorie malnutrition; G93.41 Metabolic encephalopathy; Z68.1 Body mass index [BMI] 19.9 or less, adult; E11.649 Type 2 diabetes mellitus with hypoglycemia without coma; E78.5 Hyperlipidemia, unspecified; I10 Essential (primary) hypertension; Z79.4 Long term (current) use of insulin; E87.6 Hypokalemia; R62.7 Adult failure to thrive
CPT/HCPCS: 36415; 70450; 70496; 71045; 74018; 74177; 80048; 80053; 80061; 81003; 82947; 82962; 83605; 83690; 83735; 83880; 84100; 84443; 84484; 85007; 85025; 87040; 87181; 93005; 93306; 93970; 96365; 96375; 99285; J1815; J8499